=== PATIENT | female | born 1970 | race Caucasian/White ===

== ENCOUNTER 2023-09-23 06:56 | Outpatient (OUT) | payer BC, SELFPAY ==
[2023-09-23 07:06] LABS: Basophils Absolute Auto 0.1 10^3/uL (0.0-0.1); Basophils Percent Auto 2.6 % (0.2-2.0); Eosinophils Absolute Auto 0.5 10^3/uL (0.0-0.7); Eosinophils Percent Auto 13.6 % (0.9-7.0); Hematocrit 40.6 % (36.0-48.0); Hemoglobin 12.8 g/dL (12.0-16.0); Lymphocytes Percent Auto 29.3 % (20.5-60.0); Mean Corpuscular HGB Conc 31.5 g/dL (29.9-35.2); Mean Corpuscular Hemoglobin 29.4 pg (26.7-34.0); Mean Corpuscular Volume 93.1 fL (81.0-99.0); Mean Platelet Volume 9.1 fL (9.5-13.5); Monocytes Absolute Auto 0.4 10^3/uL (0.3-0.8); Monocytes Percent Auto 10.7 % (1.7-12.0); Neutrophils Absolute Auto 1.5 10^3/uL (1.4-6.5); Neutrophils Percent Auto 43.8 % (43.0-75.0); Platelet Count 260 10^3/uL (150-450); Red Blood Count 4.36 10^6/uL (4.20-5.40); Red Cell Distribution Width 12.1 % (11.0-15.0); White Blood Count 3.5 10^3/uL (4.0-11.0)
[2023-09-23 07:35] LABS: Estimated Average Glucose 103 mg/dL; Glycohemoglobin A1C 5.2 % (4.5-6.2)
[2023-09-23 07:45] LABS: Alanine Aminotransferase 25 U/L (14-59); Albumin Globulin Ratio 1.1; Albumin Level 3.7 g/dL (3.4-5.0); Alkaline Phosphatase 86 U/L (46-116); Anion Gap 11.5; Aspartate Amino Transferase 21 U/L (15-37); BUN Creatinine Ratio 23.4; Bilirubin Total 0.4 mg/dL (0.2-1.0); Calcium 8.9 mg/dL (8.5-10.1); Carbon Dioxide 31.5 mmol/L (21.0-32.0); Chloride 102 mmol/L (98-107); Chol HDL Ratio 2.6; Cholesterol 207 mg/dL (<=200); Estimated GFR (African America >60 (>=60); Estimated GFR (Non-African Ame >60 (>=60); Globulin 3.5 g/dL; Glucose 92 mg/dL (74-106); HDL Cholesterol 80 mg/dL (40-60); Sodium 141 mmol/L (136-145); Thyroid Stimulating Hormone 3.052 uIU/mL (0.358-3.740); Total Protein 7.2 g/dL (6.4-8.2); Triglycerides 80 mg/dL (<=150)
== END 2023-09-23 06:57 | disposition home or self-care (01) ==
LOC: LAB 06:56
PROVIDERS: PCP Internal Medicine; Visit Provider Internal Medicine
DX: Z00.00 Encounter for general adult medical examination without abnormal findings (principal)
CPT/HCPCS: 36415; 80053; 80061; 83036; 84443; 85025

== ENCOUNTER 2024-08-09 15:06 | Outpatient (OUT) | payer BC, SELFPAY ==
--- OUTSIDE RECORDS SUMMARY | 2024-08-03 10:12 | XMS_ITS | CCD ---
Author Organization [facility] Care Team Providers Care [employer] Manager Name Role Phone DEEP PLASCENCIA Unavailable Unavailable DEEP PLASCENCIA Unavailable Unavailable Joon Miramontes DO Primary Care Provider Almas Betts Unavailable ÉHCTOR ZEPEDA Admitting Unavailable DUANEHÉCTOR PEÑA Attending Unavailable DEEP PLASCENCIA Primary Care Unavailable DUANEHÉCTOR VILCHIS Consulting Unavailable MISC, DR TRAN Admitting Unavailable MISC, DR TRAN Attending Unavailable BALL, DR DUPREE Primary Care Unavailable ROOSEVELT RIBEIRO Consulting Unavailable ROCK KAMARA Consulting Unavailable KULWINDER, DR DUPREE Admitting Unavailable BALL, DR DUPREE Attending Unavailable BALL, DR DUPREE Consulting Unavailable KULWINDER, DR DUPREE Primary Care Unavailable Jono Miramontes DO Primary Care Provider Almas Betts Unavailable Joon Miramontes Unavailable Ariela HARDEN Referring Unavailable Ariela HARDEN Attending Unavailable JOON MIRAMONTES Primary Care Unavailable JOON MIRAMONTES Primary Care Unavailable FILE, CHERYL Richmond Referring Unavailable JOON MIRAMONTES Primary Care Unavailable FILE, CHERYL Richmond Attending Unavailable Ariela HARDEN Referring Unavailable Ariela HARDEN Attending Unavailable JOON MIRAMONTES Primary Care Unavailable Allergies Allergy Classification Reported Allergen(s) Allergy Type Date of Onset Reaction(s) Facility (7 sources) clarithromycin; Translations: [CLARITHROMYCIN] Drug Allergy 01-16-20 [facility] Repository (10 sources) Penicillins; Translations: [PENICILLINS] Propensity to adverse reactions to drug (disorder) 01-16-20 [facility] Repository (9 sources) Sulfonamides (Antibiotic); Translations: [SULFA (SULFONAMIDE ANTIBIOTICS)] Propensity to adverse reactions to drug (disorder) 09-25-20 [facility] [place] Repository (1 source) Sulfonamides (Antibiotic) Drug allergy (disorder) 01-15-20 15 [facility] Repository (1 source) Sulfamethoxazole / Trimethoprim Drug Allergy Unknown 24h00 Other (1 source) Substance with penicillin structure and antibacterial mechanism of action (substance) Drug allergy 10-10-20 14 Unknown 24h00 Other (1 source) Substance with sulfonamide structure and antibacterial mechanism of action (substance) Drug allergy 10-10-20 14 Unknown 24h00 Other (2 sources) Sulfamethoxazole Drug Allergy 12-17-19 24 Unknown Reaction [facility] (2 sources) Trimethoprim Drug Allergy 12-17-19 24 Unknown Reaction [facility] Medications Current Medications Medication Drug Class(es) Dates Sig (Normalized) Sig (Original) [id number] 200 actuat albuterol 0.09 mg/actuat metered dose inhaler (10 sources) beta2-Adrenergic Agonist Start: 03-03-2024 take 1 puff(s) by inhalation every six hours Albuterol Sulfate Active 2 PUFF INHALATION Every 6 hours 8.5 30 March 03, 2024 12:00am Start: 12-17-2023 End: 03-03-2024 take 2 puff(s) by mouth every four hours as needed for cough Albuterol Sulfate Discontinued INHALATION December 17, 2023 1:00am March 03, 2024 12:33pm FreeTextSig: INHALE 2 PUFFS BY MOUTH EVERY 4 HOURS NEEDED FOR COUGH AND SHORTNESS OF BREATH; Note: Source Status: Continue; Provider: Kulwinder Dupree ( ) Start: 07-08-2015 take 1 puff(s) by in halation every four hours as needed PROAIR HFA 90 mcg/actuation inhaler Inhale 1 Puff as instructed every 4 hours as needed. 0 07/08/2015 Active take 2 puff(s) by mo uth every four hours as needed for cough Albuterol Sulfate HFA 108 (90 Base) MCG/ACT INHALE 2 PUFFS BY MOUTH EVERY 4 HOURS NEEDED FOR COUGH AND SHORTNESS OF BREATH Active Comment on above: Inhale 1 Puff as ins tructed every 4 hours as needed. cholecalciferol 0.05 mg oral tablet (1 source) Vitamin D take 1 tablet by mouth every twenty-four hours Vitamin D 50 MCG (2000 UT) 1 tablet Orally Once a day Active fluticasone propionate 0.05 mg/actuat metered dose nasal spray (3 sources) Corticosteroid Start: 12-17-19 Fluticasone Propionate Active 1 SPRAY INTRANASAL Daily December 17, 2023 1:00am take 1 spray(s) nasal route once daily Fluticasone Propionate 50 MCG/ACT 1 spray in each nostril Nasally Once a day Active Fluticasone Propion-Salmeterol (Advair Diskus) 500-50 mcg/dose blister with device (2 sources) Start: 03-03-2024 take 1 puff(s) by mouth every twelve hours Fluticasone Propion-Salmeterol (Advair Diskus) 500-50 mcg/dose blister with device Active 1 INH INHALATION Every 12 hours 60 March 03, 2024 12:28pm FreeTextSig: INHALE 1 PUFF BY MOUTH EVERY 12 HOURS Inhalation Twice a day; Note: Source Status: Continue; Provider: Kulwinder Lambert levoFLOXacin 500 mg oral tablet (1 source) Quinolone Antimicrobial Start: 04-14-2024 take 500 mg by mouth once daily Levofloxacin Active 500 MG PO Daily 14 April 14, 2024 12:00am predniSONE 20 mg oral tablet (6 sources) Start: 12-17-2023 End: 04-14-2024 Prednisone Active 20 MG PO As Directed 12 April 14, 2024 10:40am 1 tab tid w/ food x 2 days, then bid w/ food x 2 days, then qd w/ food x 2 days Start: 10-06-2022 take 1 tablet by laura th twice daily as needed for cough Prednisone 10 MG predniSONE 10mg, 2 (two) Tablet PO bid x 5 days PRN dyspnea, cough. # 50, 10/06/2022, Ref. x5. Active Oral PO bid x 5 days PRN dyspnea, cough. for 30 Sep, Not-Taking/PRN ProAir HFA 108 (90 Base)MCG/ ACT (1 source) Start: 07-21-2022 ProAir HFA 108 (90 Base)MCG/ACT ProAir HFA( 108 (90 Base)MCG/ACT Inhalation 1 ) Active -Hx Entry Inhalation for 0 As needed for asthma *Reorder from [employer] for eRx and Interaction Alerts* Jul, Active Completed/Discontinued Medications Medication Drug Class(es) Dates Sig (Normalized) Sig (Original) ascorbic acid 250 mg chewable tablet (5 sources) Vitamin C take 500 mg by mouth once daily Ascorbic Acid (VITAMIN C) 250 mg chew Take 500 mg by mouth once daily. 0 Active Comment on above: Take 500 mg by mouth once daily. azithromycin 250 mg oral tablet (2 sources) Macrolide Antimicrobial Start: 03-03-2024 End: 04-14-2024 Azithromycin Discontinued 250 MG PO As Directed 6 5 March 03, 2024 12:00am April 14, 2024 10:43am 120 actuat budesonide 0.16 mg/actuat / formoterol fumarate 0.0048 mg/actuat / glycopyrrolate 0.009 mg/actuat metered dose inhaler (3 sources) Corticosteroid, beta2-Adrenergic Agonist Start: 08-07-2022 End: 08-26-2023 take 2 puff(s) by inhalation every twelve hours BREZTRI AEROSPHERE 160-9-4.8 mcg/actuation HFA aerosol inhaler Inhale 2 Puffs as instructed every 12 hours. 0 08/07/2022 08/26/2023 Discontinued (Course of therapy completed) Start: 08-06-2022 take 2 puff(s) by in halation every twelve hours as needed Breztri Aerosphere 160-9-4.8 MCG/ACT 2 puffs Inhalation every 12 hours for 28 days Jul, Not-Taking/PRN Comment on above: Inhale 2 Puffs as in structed every 12 hours. Calcium (2 sources) Phosphate Binder, Calcium CALCIUM ORAL Take by mouth. 0 Active Comment on above: Take by mouth. cholecalciferol, vitamin D3, (VITAMIN D3 ORAL) (3 sources) cholecalciferol, vitamin D3, (VITAMIN D3 ORAL) Take by mouth. 0 Active Comment on above: Take by mouth. doxycycline hyclate 100 mg oral capsule (2 sources) Tetracycline-class Drug Start: End: take 100 mg by mouth twice daily Doxycycline Hyclate Discontinued 100 MG PO Twice daily 14 7 December 17, 2023 1:00am April 14, 2024 10:42am exemestane 25 mg oral tablet (2 sources) Aromatase Inhibitor Start: 1 End: 2 take 1 tablet by mouth once daily exemestane (AROMASIN) 25 mg tablet TAKE 1 TABLET BY MOUTH EVERY DAY 90 tablet 3 07/16/2021 08/26/2022 Discontinued (Course of therapy completed) Comment on above: TAKE 1 TABLET BY LAURA EVERY DAY fexofenadine hydrochloride 180 mg oral tablet (6 sources) Histamine-1 Receptor Antagonist Start: 0 take 1 tablet by mouth every twenty-four hours Fexofenadine HCl 180 MG 1 tablet Orally Once a day for 0 days Jun, Not-Taking/PRN fexofenadine HCl (AYAH ALLERGY ORAL) Take by mouth. 0 Active Comment on above: Take by mouth. Fluticasone Propion-Salmeterol (5 sources) Corticosteroid, beta2-Adrenergic Agonist Start: 12-17-2023 End: 03-03-2024 take 1 puff(s) by mouth every twelve hours Fluticasone Propion-Salmeterol (Advair Diskus) 500-50 mcg/dose blister with device Discontinued INHALATION December 17, 2023 1:00am March 03, 2024 12:32pm FreeTextSig: INHALE 1 PUFF BY MOUTH EVERY 12 HOURS Inhalation Twice a day; Note: Source Status: Continue; Provider: Kulwinder Lambert Start: 03-19-2016 End: 08-26-2022 ADVAIR DISKUS 500-50 mcg/dos e dsdv 1 Puff twice daily as needed. 0 03/19/2016 08/26/2022 Discontinued (Course of therapy completed) take 1 puff(s) by mo [facility] every twelve hours Advair Diskus 500-50 MCG/ACT INHALE 1 PUFF BY MOUTH EVERY 12 HOURS Inhalation Twice a day Active Comment on above: 1 Puff twice daily a s needed. fluticasone propion/salmeterol (ADVAIR DISKUS INHALATION) (3 sources) fluticasone propion/salmeterol (ADVAIR DISKUS INHALATION) Inhale as instructed. 0 Active Comment on above: Inhale as instructed . multivitamin ORAL tablet (4 sources) Start: 02-05-2012 End: 12-10-2023 take 1 tablet by mouth once daily multivitamin ORAL tablet Take 1 tablet by mouth once daily. 0 02/05/2012 12/10/2023 Discontinued Start: 02-05-2012 take 1 tablet by laura th once daily multivitamin ORAL tablet Take 1 tablet by mouth once daily. 0 02/05/2012 Active Comment on above: Take 1 tablet by laura th once daily. Multivitamin preparation (1 source) Start: 07-21-2022 take 1 tablet by mouth once daily as needed Multivitamin - 1 tablet Orally Once a day for 0 days Jul, Not-Taking/PRN Problems Active Problems Problem Classification Problem Date Documented Da te Episodic/Chronic Asthma (11 sources) Uncomplicated mild persistent asthma; Translations: [Mild persistent asthma, uncomplicated] Chronic Cancer of breast (14 sources) Malignant tumor of breast ; Translations: [Malignant neoplasm of unspecified site of unspecified female breast] Onset: 08-18-2011 09-17-2011 Chronic Diseases of white blood cells (4 sources) Decreased blood leukocyte number; Translations: [Other decreased white blood cell count] Chronic Nonmalignant breast conditions (5 sources) Fibrocystic disease of breast; Translations: [Diffuse cystic mastopathy of unspecified breast] Onset: 07-15-2010 07-15-2010 Chronic Other aftercare (1 source) Patient encounter status; Translations: [Other halfway (current) drug therapy] 12-10-2023 Episodic Other bone disease and musculoskeletal deformities (2 sources) Osteopenia; Translations: [Other specified disorders of bone density and structure, other site] Episodic Other screening for suspected conditions (not mental disorders or infectious disease) (5 sources) Endometrium thickened; Translations: [Abnormal findings on diagnostic imaging of other specified body structures] Onset: 06-22-2018 06-22-2018 Chronic Other upper respiratory infections (20 sources) Chronic ethmoidal sinusitis; Translations: [Chronic ethmoidal sinusitis] Onset: 02-22-2006 07-13-2010 Chronic Other upper respiratory infections (4 sources) Acute sinusitis, unspecified; Translations: [Acute sinusitis, unspecified] 12-17-2023 Episodic Residual codes; unclassified (4 sources) Asymptomatic menopausal state; Translations: [ASYMPTOMATIC MENOPAUSAL STATE] Onset: 07-17-2022 Episodic Residual codes; unclassified (1 source) Estrogen receptor positive status [ER+]; Translations: [ESTROGEN RECEPTOR POSITIVE STATUS] Onset: 07-27-2022 Episodic Unclassified (3 sources) CONTACT W/AND (SUSP) EXPOS COVID-19; Translations: [CONTACT W/AND (SUSP) EXPOS COVID-19] Onset: 02-27-2022 Past or Other Problems Problem Classification Problem Date Documented Da te Episodic/Chronic Cancer of breast (10 sources) History of malignant neoplasm of breast; Translations: [Personal history of malignant neoplasm of breast] Onset: 07-18-2014 Episodic Lymphadenitis (5 sources) Lymphadenopathy; Translations: [Enlarged lymph nodes, unspecified] Onset: 07-15-2010 07-15-2010 Episodic Nonmalignant breast conditions (5 sources) Pain of breast; Translations: [Mastodynia] Onset: 07-15-2010 07-15-2010 Episodic Other aftercare (6 sources) Radiotherapy follow-up; Translations: [Encounter for follow-up examination after completed treatment for conditions other than malignant neoplasm] Onset: 07-31-2015 07-31-2015 Episodic Other aftercare (1 source) Other long term care phlebotomist (current) drug therapy; Translations: [Encounter for long-term (current) use of medications] Onset: 12-10-2023 Episodic Other bone disease and musculoskeletal deformities (3 sources) Other specified disorders of bone density and structure, multiple sites; Translations: [OTH D/O BONE DENSITY STRUCT MX SITE] Onset: 07-27-2022 Episodic Other non-traumatic joint disorders (5 sources) Pain in right hip joint; Translations: [Pain in right hip] Onset: 10-25-2012 10-25-2012 Episodic Pathological fracture (10 sources) Stress fracture of sacrum; Translations: [Pathological fracture, other site, initial encounter for fracture] Onset: 11-22-2012 11-22-2012 Episodic Unclassified (7 sources) Abnormal findings on diagnostic imaging of other specified body structures; Translations: [Musculoskeletal finding] Onset: 10-25-2012 10-25-2012 Episodic Unclassified (1 source) CONTACT W/AND (SUSP) EXPOS COVID-19; Translations: [CONTACT W/AND (SUSP) EXPOS COVID-19] Onset: 02-25-2022 Results Test Name Value Interpretation Reference Range [facility] CNPN Telephone (RHEUMN) ROMEO CHRISTIANSEN ([id number]) 1970 F Date Time Provider Department 12/13/23 CHERYL GARCIA During your visit today, we recorded the following information about you: Cheryl Garcia MD 12/13/2023 9:24 AM Signed I called romeo to discuss results. no answer. LMTCB Cheryl Garcia MD 12/15/2023 11:18 AM Signed I discussed lab results with romeo. they are normal. CTX is 393, which is lower half of normal range. She was previously on aromasin, which could have contributed to some decrease in bone density and she has been off this since 2021. At this point will monitor her and she will repeat her bone density shortly after 07/17/24 and she will see me back as a virtual visit after this. will give further treatment recommendations at that time. Allergies As of Date: 12/13/2023 Noted Allergy Reaction BIAXIN (CLARITHROMYCIN) 01/15/2006 2 - Rash PENICILLINS 01/15/2006 2 - Rash SULFA (SULFONAMIDE ANTIBIOTICS) 09/25/2013 2 - Rash Date Reviewed: 12/10/2023 Reviewed by: Cheryl Garcia MD - Fully Assessed Reason for Visit: Results [95] Prescriptions as of 12/15/2023 - CALCIUM ORAL Take by mouth. - fluticasone propion/salmeterol (ADVAIR DISKUS INHALATION) Inhale as instructed. - cholecalciferol, vitamin D3, (VITAMIN D3 ORAL) Take by mouth. - fexofenadine HCl (AYAH ALLERGY ORAL) Take by mouth. - Ascorbic Acid (VITAMIN C) 250 mg chew Take 500 mg by mouth once daily. - PROAIR HFA 90 mcg/actuation inhaler Inhale 1 Puff as instructed every 4 hours as needed. Problem List As Of Date 12/13/2023 Noted Resolved CHR ETHMOIDAL SINUSITIS [J32.2] 02/22/2006 CHR MAXILLARY SINUSITIS [J32.0] 02/22/2006 CHR FRONTAL SINUSITIS [J32.1] 02/22/2006 CHR SPHENOIDAL SINUSITIS [J32.3] 02/22/2006 Mastodynia [N64.4] 07/15/2010 Fibrocystic Breast [N60.19] 07/15/2010 Enlarged Lymph Node [R59.9] 07/15/2010 Breast cancer [C50.919] 09/17/2011 Malignant neoplasm of breast (female), unspecif*09/17/2011 Unspecified asthma, with status asthmaticus [J4* 07/22/2016 Pain, joint, hip, right [M25.551] 10/25/2012 Nonspecific (abnormal) findings on radiological*10/25/2012 Sacral insufficiency fracture [M84.48XA] 11/22/2012 Osteoporosis with fracture [M80.80XA] 11/22/2012 Personal history of malignant neoplasm of breas*07/18/2014 Radiotherapy follow-up examination [Z09] 07/31/2015 Thickened endometrium [R93.89] 06/22/2018 Encounter Status:Closed by FILE, CHERYL Basilio on 12/15/23 Normal [facility] 25(OH)D3 SerPl-ncon 2023 25-hydroxyvitamin D3 [Mass/Vol] 49.4 ng/mL Normal 31.0-80.0 [facility] Comment on above: Order Comment: Speci men Type: BLOOD SPECIMEN Ordering Facility: [facility] Address: [address] [place] [address] Result Comment: Clas sification of 25 OH Vitamin D status: Deficiency/Insufficiency: < or = 30 ng/ml. Sufficiency/Optimal Levels: 31-80 ng/mL Toxicity: > 100 ng/mL. Test performed by chemiluminescent immunoassay. Performed By: #### 1 989-3 #### [facility] CLIA [id number] [address] [place] [address] [place] [address] [place] CNOVon 12-10-2023 CNOV Office Visit (BONEMN ) ANDREIAROMEO Gregg ([id number]) 1970 F Date Time Provider Department 12/10/23 8:00 AM CHERYL GARCIA BONEZANDRA During your visit today, we recorded the following information about you: Temperature Pulse Blood pressure Weight 97.5 degrees 79/minute 119/68 66.5 kg Height 1.727 m Cheryl Garcia MD 12/13/2023 9:19 AM Addendum The patient is seen in consultation at the request of self for an opinion and advise regarding the management of the patient?s osteoporosis. OSTEOPOROSIS AND METABOLIC BONE DISEASE HISTORY and PHYSICAL Gender: female Ethnicity: White Age: [age] year old Chief Complaint: Evaluation for osteopenia TREATMENTS: Osteoporosis - Antiresorptive Treatments Treatment Start Date Stop Date Stop Reason Comment none Osteoporosis - Anabolic Treatments Treatment Start Date Stop Date Stop Reason Comment none Current Calcium, Multivitamin, and Vitamin D Use on File Minerals and Electrolytes - Calcium Replacement Start End CALCIUM ORAL -- Sig - Route: Take by mouth. - ORAL Class: Historical Med Vitamins - D Derivatives Start End cholecalciferol, vitamin D3, (VITAMIN D3 ORAL) -- Sig - Route: Take by mouth. - ORAL Class: Historical Med OSTEOPOROSIS RISK FACTORS Osteoporosis FRAX Risk Factors Fracture(s) Wrist Fracture (Comment: around 2018- fell backwards in exercise class and broke both wrists at same time- was a hard fall, she broke the fall, landing on her outstreched hands) Family History of osteoporosis (Comment: grandmother) No parent with a hip fracture Not a current smoker Glucocorticoid use (Comment: about 2 short steroid tapers per year for asthma/allergies) Previous use No rheumatoid arthritis No secondary osteoporosis No alcohol use more than 3 units per day Osteoporosis Medication Risk Factors No use of Anti-convulsants Aromatase inhibitors No use of Furosemide No use of Proton pump inhibitor No use of Thyroid hormone with oversuppression Osteoporosis Disease-Specific Risk Factors Weight is not less than 127 lbs Height loss 1/2 inch since age 38 normal balance No fall history No history of renal calculi No CKD Caffeine intake: 1-3 c/day Exercise routine: (Comment: walks) REVIEW OF SYSTEMS: General: No fever or chills. HEENT: The patient reports that dentition is fine. No invasive dental work in the last three months and none planned for the future. No eye pain or redness. Lungs: No shortness of breath or cough CV: No chest pain or palpitations. No history of blood clot. Endocrine: no history of diabetes or thyroid disease : no history of kidney disease or kidney stone GI: no GERD. No nausea, vomiting, diarrhea or constipation or abdominal pain. Neurological: No numbness or tingling. No history of seizure. MSK: no joint pain. No back pain Skin: No rash HEME/ONC: has h/o breast cancer, received radiation Osteoporosis History Patient has a history of fracture(s) Wrist Fracture (Comment: around 2018- fell backwards in exercise class and broke both wrists at same time- was a hard fall, she broke the fall, landing on her outstreched hands) FRAX 10-year fracture risk: hip: 1% FRAX 10-year fracture risk: major osteoporotic: 11% Daily Calcium diet: 371 mg Daily Calcium supplementation: 1000 mg Daily Vitamin D: 1000 IU Current Multivitamin: No OB History 6 Para 5 Term AB Living 5 SAB IAB Ectopic Multiple Live Births Obstetric Comments Age of menarche 13 Afb 25 Lmp 08/29/2011 PAST MEDICAL HISTORY Diagnosis Date Breast cancer (HCC) 08/2011 left breast Unspecified asthma, with status asthmaticus Vaginal bleeding has h/o node positive ER/DE positive HER-2/clari positive breast cancer diagnosed 2010 post neoadjuvant trastuzumab plus carboplatin and paclitaxel and 1 year of adjuvant trastuzumab and radiation. she completed 5 years of Tamoxifen and 5 years of Aromasin in 2021. osteopenia PAST SURGICAL HISTORY Procedure Laterality Date BREAST BIOPSY 09/03/2011 left breast DILATION AND CURETTAGE DXAND/THER NONOBSTETRIC 11/2017 Dilation AND curettage DILATION AND CURETTAGE DXAND/THER NONOBSTETRIC 2016 Dilation AND curettage DILATION AND CURETTAGE DXAND/THER NONOBSTETRIC 2015 Dilation AND curettage MASTECTOMY, SIMPLE, COMPLETE 02/12/2012 left breast with SLND MASTECTOMY, SIMPLE, COMPLETE 02/12/2012 prophylactic right breast SEPTOPLASTY/SUBMUCOUS RESECJ W/WO CARTILAGE GRF Family History: FAMILY HISTORY Problem Relation Age of Onset COPD Maternal Grandfather Cancer Paternal Grandmother Asthma Other Allergies: Biaxin [Clarithromycin], Penicillins, and Sulfa (Sulfonamide Antibiotics) Medications: Present: Current Outpatient Medications Medication Sig CALCIUM ORAL Take by mouth. fluticasone propion/salmeterol (ADVAIR DISKUS (more content not included)... Normal [facility] CREATININE BLDon 12-10-2023 Creatinine [Mass/Vol] 0.80 mg/dL Normal 0.58-0.96 [facility] Comment on above: Order Comment: Manuel villa Type: BLOOD SPECIMEN Ordering Facility: [facility] Address: [address] [place] [address] Performed By: #### 2 731-8, CREOseas, 41951-7 #### [facility] CLIA [id number] [address] [place] [address] [place] Creatinine and Glomerular filtration rate.predicted panel (S/P/Bld) 87 mL/min/1.73m??? Normal >=60 [facility] Comment on above: Order Comment: Manuel villa Type: BLOOD SPECIMEN Ordering Facility: [facility] Address: [address] [place] [address] Result Comment: Lali mated Glomerular Filtration Rate (eGFR) is calculated using the 2020 CKD-EPI creatinine equation. This equation utilizes serum creatinine, sex, and age as parameters. The creatinine assay has traceable calibration to isotope dilution-mass spectrometry. Refer to KDIGO guidelines for clinical interpretation. In patients with unstable renal function, e.g. those with acute kidney injury, the eGFR may not accurately reflect actual GFR. Performed By: #### 2 731-8, CRET1, 41430-2 #### [facility] CLIA [id number] [address] [place] [address] [place] Calcium SerPl-mCncon 024 Calcium [Mass/Vol] 10.1 mg/dL Normal 8.5-10.2 [facility] Comment on above: Order Comment: Manuel villa Type: BLOOD SPECIMEN Ordering Facility: [facility] Address: [address] [place] [address] Performed By: #### 2 731-8, CRET1, 05403-4 #### [facility] [place] [id number] [address] [place] [address] [place] Collagen crosslinked C-telop eptide [Mass/Vol]on 12-10-2023 C TELOPEPTIDE, BETA CROSS LINKED 393 pg/mL Normal 183-1060 [facility] Comment on above: Order Comment: Speci men Type: BLOOD SPECIMENOrdering Facility: [facility] Address: [address] [place] [address] Performed By: #### 4 1171-0 ####[facility] [id number] [place] [address] [place] PTH-Intact SerPl-ncon 02- Parathyrin.intact [Mass/Vol] 30 pg/mL Normal 15-65 [facility] Comment on above: Order Comment: Speci men Type: BLOOD SPECIMEN Ordering Facility: [facility] Address: [address] [place] [address] Performed By: #### 2 731-8, CRET1, 71135-9 #### [facility] [place] [id number] [address] [place] [address] [place] Walter 10-22-2023 CNPN Telephone (RHEUMN) ROMEO CHRISTIANSEN ([id number]) 1970 F Date Time Provider Department 10/22/23 FILE, CHERYL KRUSE During your visit today, we recorded the following information about you: Jaelyn Hidalgo 10/22/2023 4:28 PM Signed Received outside medical records from [facility]. Scanned into chart for review. Allergies As of Date: 10/22/2023 Noted Allergy Reaction BIAXIN (CLARITHROMYCIN) 01/15/2006 2 - Rash PENICILLINS 01/15/2006 2 - Rash SULFA (SULFONAMIDE ANTIBIOTICS) 09/25/2013 2 - Rash Date Reviewed: 07/21/2023 Reviewed by: Roosevelt Ribeiro MD - Fully Assessed Reason for Visit: Received Outside Medical Records [[id number]] Prescriptions as of 10/22/2023 - fluticasone propion/salmeterol (ADVAIR DISKUS INHALATION) Inhale as instructed. - cholecalciferol, vitamin D3, (VITAMIN D3 ORAL) Take by mouth. - fexofenadine HCl (AYAH ALLERGY ORAL) Take by mouth. - Ascorbic Acid (VITAMIN C) 250 mg chew Take 500 mg by mouth once daily. - PROAIR HFA 90 mcg/actuation inhaler Inhale 1 Puff as instructed every 4 hours as needed. - multivitamin ORAL tablet Take 1 tablet by mouth once daily. Problem List As Of Date 10/22/2023 Noted Resolved CHR ETHMOIDAL SINUSITIS [J32.2] 02/22/2006 CHR MAXILLARY SINUSITIS [J32.0] 02/22/2006 CHR FRONTAL SINUSITIS [J32.1] 02/22/2006 CHR SPHENOIDAL SINUSITIS [J32.3] 02/22/2006 Mastodynia [N64.4] 07/15/2010 Fibrocystic Breast [N60.19] 07/15/2010 Enlarged Lymph Node [R59.9] 07/15/2010 Breast cancer [C50.919] 09/17/2011 Malignant neoplasm of breast (female), unspecif*09/17/2011 Unspecified asthma, with status asthmaticus [J4* 07/22/2016 Pain, joint, hip, right [M25.551] 10/25/2012 Nonspecific (abnormal) findings on radiological*10/25/2012 Sacral insufficiency fracture [M84.48XA] 11/22/2012 Osteoporosis with fracture [M80.80XA] 11/22/2012 Personal history of malignant neoplasm of breas*07/18/2014 Radiotherapy follow-up examination [Z09] 07/31/2015 Thickened endometrium [R93.89] 06/22/2018 Encounter Status:Closed by SHAILESH, CHERYL melgar 10/22/23 Normal [facility] CNOVon 08-26-2023 CNOV Office Visit (RADTSA ) ROMEO CHRISTIANSEN ([id number]) 1970 F Date Time Provider Department 08/26/23 11:30 AM Ariela HARDEN During your visit today, we recorded the following information about you: Temperature Pulse Respiration Blood pressure 96.7 degrees 75/minute 18/minute 120/73 Weight 67 kg Ariela Harden MD 08/26/2023 12:47 PM Signed Radiation Oncology - Follow Up Note PATIENT NAME: Romeo Christiansen PATIENT DIAGNOSIS: Breast cancer, left, T3N1 invasive ductal carcinoma , ER/DE and HER2/clari positive. s/p neoadjuvant chemotherapy followed by mastectomy followed by adjuvant chest wall and regional lymph node radiation. RADIATION SUMMARY: 50 Gy to the left chest wall and regional nodel areas and a total 65 Gy to the ranjeet-mastectomy incision area completed radiation May 06, 2012 INTERVAL HISTORY: Patient states she has been doing well. Denies new problems. Denies chest pain, skin changes or rash. Denies upper extremity paresthesias or swelling. ALLERGIES: ALLERGIES Allergen Reactions Biaxin [Clarithromy* Rash Penicillins Rash Sulfa (Sulfonamide * Rash MEDICATIONS: fluticasone propion/salmeterol (ADVAIR DISKUS INHALATION) Inhale as instructed. cholecalciferol, vitamin D3, (VITAMIN D3 ORAL) Take by mouth. fexofenadine HCl (AYAH ALLERGY ORAL) Take by mouth. Ascorbic Acid (VITAMIN C) 250 mg chew Take 500 mg by mouth once daily. PROAIR HFA 90 mcg/actuation inhaler Inhale 1 Puff as instructed every 4 hours as needed. multivitamin ORAL tablet Take 1 tablet by mouth once daily. PHYSICAL EXAM: 08/26/23 1127 BP: 120/73 Pulse: 75 Resp: 18 Temp: (!) 35.9 ?C (96.7 ?F) SpO2: 99% Weight: 67 kg (147 lb 9.6 oz) KPS: 100 General Appearance: Well appearing, alert, in no acute distress, well-hydrated, well nourished.. Skin: Skin color, texture, turgor normal, no suspicious rashes or lesions. Neck: Negative findings: no asymmetry, masses, or scars, no adenopathy. Lungs: Lungs clear to auscultation. No wheezing, rhonchi, rales.. Abdomen: Normal abdominal exam, Negative findings: no masses palpable, no organomegaly, soft, non-tender, and spleen non-palpable. Breast: bilateral breasts are surgically absent, evidence of post radiation changes left chest wall, area of telangiectasia stable. No open areas. No areas of induration or swelling or nodularity. ASSESSMENT/PLAN: T3N1 invasive ductal carcinoma of the left breast, ER/DE and HER2/clari positive. s/p neoadjuvant chemotherapy followed by mastectomy followed by adjuvant chest wall and regional lymph node radiation. Clinically doing well. No evidence recurrence. Stable posttreatment related skin issues are not problematic for her. Recommend follow-up in 1 year. Signed by: Ariela Harden MD Referring Provider: Ariela HARDEN [[id number]] Allergies As of Date: 08/26/2023 Noted Allergy Reaction BIAXIN (CLARITHROMYCIN) 01/15/2006 2 - Rash PENICILLINS 01/15/2006 2 - Rash SULFA (SULFONAMIDE ANTIBIOTICS) 09/25/2013 2 - Rash Date Reviewed: 07/21/2023 Reviewed by: Roosevelt Ribeiro MD - Fully Assessed Reason for Visit: Breast Cancer [519] Primary Visit Diagnosis:History of breast cancer [Z85.3] Prescriptions as of 08/26/2023 - fluticasone propion/salmeterol (ADVAIR DISKUS INHALATION) Inhale as instructed. - cholecalciferol, vitamin D3, (VITAMIN D3 ORAL) Take by mouth. - fexofenadine HCl (AYAH ALLERGY ORAL) Take by mouth. - Ascorbic Acid (VITAMIN C) 250 mg chew Take 500 mg by mouth once daily. - PROAIR HFA 90 mcg/actuation inhaler Inhale 1 Puff as instructed every 4 hours as needed. - multivitamin ORAL tablet Take 1 tablet by mouth once daily. Problem List As Of Date 08/26/2023 Noted Resolved CHR ETHMOIDAL SINUSITIS [J32.2] 02/22/2006 CHR MAXILLARY SINUSITIS [J32.0] 02/22/2006 CHR FRONTAL SINUSITIS [J32.1] 02/22/2006 CHR SPHENOIDAL SINUSITIS [J32.3] 02/22/2006 Mastodynia [N64.4] 07/15/2010 Fibrocystic Breast [N60.19] 07/15/2010 Enlarged Lymph Node [R59.9] 07/15/2010 Breast cancer [C50.919] 09/17/2011 Malignant neoplasm of breast (female), unspecif*09/17/2011 Unspecified asthma, with status asthmaticus [J4* 07/22/2016 Pain, joint, hip, right [M25.551] 10/25/2012 Nonspecific (abnormal) findings on radiological*10/25/2012 Sacral insufficiency fracture [M84.48XA] 11/22/2012 Osteoporosis with fracture [M80.80XA] 11/22/2012 Personal history of malignant neoplasm of breas*07/18/2014 Radiotherapy follow-up examination [Z09] 07/31/2015 Thickened endometrium [R93.89] 06/22/2018 Medications Discontinued During This Encounter Prescriptions - BREZTRI AEROSPHERE 160-9-4.8 mcg/actuation HFA aerosol inhaler (Discontinued) Inhale 2 Puffs as instructed every 12 hours. Disposition: Return in about 1 year (around 08/26/2024). Follow-up and Disposition History for Encounter Da (more content not included)... Normal [facility] XR DEXA BONE DENSITYon 07-17 XR DEXA BONE DENSITY DEXA Bone Density Study CLINICAL: Evaluate bone mineral density. Postmenopausal COMPARISON: None FINDINGS: The bone density study was assessed by dual-energy x-ray absorptiometry with the VPEP scanner. The test results are expressed in T-Score, which is used for diagnosis for osteoporosis, and reflects the standard deviations from the mean peak bone mineral density in young adults. Additional information regarding the Z-Score reflects the standard deviations from the mean peak bone mineral density for age- and gender- matched subject. Lumbar Spine (L1-L4): BMD (gm/cm2): 0.916 T-Score: -2.2 Left Hip: BMD (gm/cm2): O.788 T-Score: -1.7 Left Femoral Neck: BMD (gm/cm2): 0.835 T-Score: -1.5 Right Hip: BMD (gm/cm2): 0.788 T-Score: -1.7 Right Femoral Neck: BMD (gm/cm2): 0.835 T-Score: -1.5 IMPRESSION: 1. Lumbar spine indicates osteopenia. 2. Both hips indicate osteopenia. REFERENCE: In children, postmenopausal women and males under age 50 not at increased risk for fractures, only Z-Scores, not T-Scores, are used to indicate fracture risk. A Z-Score above -2.0 is defined as within the expected range for age and Z-Score at or less than -2.0 is below the expected range for age. A Z-Score below the expected range for age in a patient with recent fractures and/or chronic corticosteroid treatment is consistent with a diagnosis of osteoporosis. In postmenopausal women and males over 50, comparison of the measured bone mineral density with the average value in young normal subjects (the T-Score) has been found to be useful in assessing fracture risk. Fracture risk approximately doubles for each 1.0 standard deviation (SD) that the individual's hip or spine bone mineral density is below the average value of young normal subjects. The World health Organization (WHO) has provided the following definitions: 1. Normal: T-Score within one standard deviation of young adult mean value (T-Score greater than -1.0). 2. Osteopenia (low bone mass): T-Score more than one standard deviation below the young adult mean but less than 2.5 standard deviations below the young adult mean (T-Score between -1.0 and -2.5). 3. Osteoporosis: T-Score more than 2.5 standard deviations below the young adult mean (T-Score less than -2.5). 4. Sever Osteoporosis (established osteoporosis): T-Score more than 2.5 standard deviations below young adult and one or more fragility fracture (T-Score less than -2.5 + fragility fractures). Electronically authenticated by: ROCK KAMARA Date: 2022-07-17 09:51 Normal [facility] CBC AUTO DIFFon 07-15-2022 BASO # 0.1 103/ul Normal 0.0-0.[address] [facility] Comment on above: Performed By: #### C BC #### [facility] [address] [place] [address] Dr. Kira Mantilla Basophils/100 WBC (Bld) 1.7 % Normal 0.2-2.[address] [facility] Comment on above: Performed By: #### C BC #### [facility] [address] [place] [address] Dr. Kira Mantilla EO # 1.0 103/ul Critically high 0.0-0.[address] [facility] Comment on above: Performed By: #### C BC #### [facility] [address] [place] [address] Dr. Kira Mantilla Eosinophils/100 WBC (Bld) 18.2 % Critically high 0.9-7.[address] [facility] Comment on above: Performed By: #### C BC #### [facility] [address] [place] [address] Dr. Kira Mantilla Erythrocyte distribution width (RBC) [Ratio] 12.3 % Normal 11.0-15.[address] [facility] Comment on above: Performed By: #### C BC #### [facility] [address] [place] [address] Dr. Kira Mantilla Hematocrit (Bld) [Volume fraction] 44.1 % Normal 36.0-48.[address] [facility] Comment on above: Performed By: #### C BC #### [facility] [address] [place] [address] Dr. Kira Mantilla Hemoglobin (Bld) [Mass/Vol] 14.1 g/dL Normal 12.0-16.[address] [facility] Comment on above: Performed By: #### C BC #### [facility] [address] [place] [address] Dr. Kira Mantilla IG # 0.01 10e3/ul Normal 0.00-0.[address] [facility] Comment on above: Performed By: #### C BC #### [facility] [address] [place] [address] Dr. Kira Mantilla IG % 0.2 % Normal 0.0-0.[address] [facility] Comment on above: Performed By: #### C BC #### [facility] [address] [place] [address] Dr. Kira Mantilla LYMPH # 1.1 103/ul Critically low 1.2-3.[address] [facility] Comment on above: Performed By: #### C BC #### [facility] [address] [place] [address] Dr. Kira Mantilla Lymphocytes/100 WBC (Bld) 20.6 % Normal 20.5-60.[address] [facility] Comment on above: Performed By: #### C BC #### [facility] [address] [place] [address] Dr. Kira Mantilla MANUAL DIFF REQ NO Normal [facility] Comment on above: Performed By: #### C BC #### [facility] [address] [place] [address] Dr. Kira Mantilla MCH (RBC) [Entitic mass] 29.1 pg Normal 26.7-34.[address] [facility] Comment on above: Performed By: #### C BC #### [facility] [address] [place] [address] Dr. Kira Mantilla MCHC (RBC) [Mass/Vol] 32.0 g/dL Normal 29.9-35.[address] [facility] Comment on above: Performed By: #### C BC #### [facility] [address] [place] [address] Dr. Kira Mantilla MCV (RBC) [Entitic vol] 91.1 fL Normal 81.0-99.[address] [facility] Comment on above: Performed By: #### C BC #### [facility] [address] [place] [address] Dr. Kira Mantilla MONO # 0.6 103/ul Normal 0.3-0.[address] [facility] Comment on above: Performed By: #### C BC #### [facility] [address] [place] [address] Dr. Kira Mantilla Monocytes/100 WBC (Bld) 10.5 % Normal 1.7-12.[address] [facility] Comment on above: Performed By: #### C BC #### [facility] [address] [address] [address] Kira Mantilla NEUT # 2.7 103/ul Normal 1.4-6.[address] [facility] Comment on above: Performed By: #### C BC #### [facility] [address] [address] [address] Kira Mantilla Neutrophils/100 WBC (Bld) 48.8 % Normal 43.0-75.[address] [facility] Comment on above: Performed By: #### C BC #### [facility] [address] [address] [address] Kira Mantilla Platelet mean volume (Bld) [Entitic vol] 9.3 fL Critically low 9.5-13.[address] [facility] Comment on above: Performed By: #### C BC #### [facility] [address] [place] [address] Dr. Kira Mantilla PLT 262 103/ul Normal 150-450 [facility] Comment on above: Performed By: #### C BC #### [facility] [address] [place] [address] Dr. Kira Mantilla RBC 4.84 106/ul Normal 4.20-5.[address] [facility] Comment on above: Performed By: #### C BC #### [facility] [address] [place] [address] Dr. Kira Mantilla WBC 5.4 103/ul Normal 4.0-11.[address] [facility] Comment on above: Performed By: #### C BC #### [facility] [address] [place] [address] Dr. Kira Mantilla GLYCOHEMOGLOBIN A1Con 2021 ADA RECOMMENDATION SEE BELOW Normal [facility] Comment on above: Result Comment: ADA RECOMMENDED LIMIT 4.0 - 6.0 ADA THERAPEUTIC TARGET < 7.0 ACTION SUGGESTED > 7.0 Performed By: #### A 1C #### [facility] [address] [place] [address] Dr. Kira Mantilla Glucose [Mass/Vol] 105 mg/dL Normal [facility] Comment on above: Performed By: #### A 1C #### [facility] [address] [address] [address] Kira Mantilla HbA1c (Bld) [Mass fraction] 5.3 % Normal 4.5-6.[address] [facility] Comment on above: Performed By: #### A 1C #### [facility] [address] [place] [address] Dr. Kira Mantilla LIPID PROFILEon 07-15-2022 CHOL-HDL RATIO NORM SEE BELOW Normal [facility] Comment on above: Result Comment: 3.3 - 4.4 LOW RISK 4.4 - 7.1 AVERAGE RISK 7.1 - 11.0 MODERATE RISK >11.0 HIGH RISK Performed By: #### T SH, CMP, LIPID #### [facility] [address] [place] [address] Dr. Kira Mantilla Cholesterol [Mass/Vol] 230 mg/dL Critically high <=200 [facility] Comment on above: Performed By: #### T SH, CMP, LIPID #### [facility] [address] [place] [address] Dr. Kira Mantilla Cholesterol in HDL [Mass/Vol] 90 mg/dL Critically high 40-[address] [facility] Comment on above: Performed By: #### T SH, CMP, LIPID #### [facility] [address] [place] [address] Dr. Kira Mantilla Cholesterol in LDL [Mass/Vol] 123.8 mg/dL Normal [facility] Comment on above: Performed By: #### T SH, CMP, LIPID #### [facility] [address] [place] [address] Dr. Kira Mantilla Cholesterol.total /Cholesterol in HDL [Mass ratio] 2.6 {ratio} Normal [facility] Comment on above: Performed By: #### T SH, CMP, LIPID #### [facility] [address] [place] [address] Dr. Kira Mantilla HDL NORMAL > or = 60 mg/dl - LO W CARDIOVASCULAR RISK <40 mg/dl - HIGH CARDIOVASCULAR RISK Normal [facility] Comment on above: Performed By: #### T SH, CMP, LIPID #### [facility] [address] [address] [address] Kira Mantilla LDL CALC NORMAL SEE BELOW Normal [facility] Comment on above: Result Comment: <100 mg/dl OPTIMAL 100 - 129 mg/dl NEAR OR ABOVE OPTIMAL 130 - 159 mg/dl BORDERLINE HIGH 160 - 189 mg/dl HIGH >190 mg/dl VERY HIGH Performed By: #### T SH, CMP, LIPID #### [facility] [address] [address] [address] Kira Mantilla Triglyceride [Mass/Vol] 81 mg/dL Normal <=[address] [facility] Comment on above: Performed By: #### T MATTHEW, CMP, LIPID #### [facility] [address] [place] [address] Dr. Kira Mantilla VLDL CALC 16.2 mg/dL Normal [facility] Comment on above: Performed By: #### T MATTHEW CMP, LIPID #### [facility] [address] [place] [address] Dr. Kira Mantilla PROF 14(COMP METB)on 022 Albumin [Mass/Vol] 4.1 g/dL Normal 3.4-5.[address] [facility] Comment on above: Performed By: #### T MATTHEW CMP, LIPID #### [facility] [address] [place] [address] Dr. Kira Mantilla Albumin/Globulin [Mass ratio] 1.1 {ratio} Normal [facility] Comment on above: Performed By: #### T MATTHEW CMP, LIPID #### [facility] [address] [place] [address] Dr. Kira Mantilla ALP [Catalytic activity/Vol] 86 U/L Normal 46-116 [facility] Comment on above: Performed By: #### T MATTHEW, CMP, LIPID #### [facility] [address] [place] [address] Dr. Kira Mantilla ALT [Catalytic activity/Vol] 28 U/L Normal 14-59 [facility] Comment on above: Performed By: #### T MATTHEW, CMP, LIPID #### [facility] [address] [place] [address] Dr. Kira Mantilla Anion gap [Moles/Vol] 11.5 mmol/L Normal [facility] Comment on above: Performed By: #### T SH, CMP, LIPID #### [facility] [address] [place] [address] Dr. Kira Mantilla AST [Catalytic activity/Vol] 23 U/L Normal 15-[address] [facility] Comment on above: Performed By: #### T SH, CMP, LIPID #### [facility] [address] [place] [address] Dr. Kira Mantilla Bilirubin [Mass/Vol] 0.6 mg/dL Normal 0.2-1.0 [facility] Comment on above: Performed By: #### T SH, CMP, LIPID #### [facility] [address] [place] [address] Dr. Kira Mantilla Calcium [Mass/Vol] 9.6 mg/dL Normal 8.5-10.[address] [facility] Comment on above: Performed By: #### T SH, CMP, LIPID #### [facility] [address] [place] [address] Dr. Kira Mantilla Chloride [Moles/Vol] 102 mmol/L Normal 98-107 [facility] Comment on above: Performed By: #### T SH, CMP, LIPID #### [facility] [address] [place] [address] Dr. Kira Mantilla CO2 [Moles/Vol] 29.5 mmol/L Normal 21.0-32.0 [facility] Comment on above: Performed By: #### T SH, CMP, LIPID #### [facility] [address] [place] [address] Dr. Kira Mantilla Creatinine [Mass/Vol] 0.85 mg/dL Normal 0.55-1.02 [facility] Comment on above: Performed By: #### T SH, CMP, LIPID #### [facility] [address] [place] [address] Dr. Kira Mantilla EGFR-AF GUAMANIAN >60 Normal >=60 [facility] Comment on above: Performed By: #### T SH, CMP, LIPID #### [facility] [address] [address] [address] Kira Mantilla EGFR-NON AF GUAMANIAN >60 Normal >=60 [facility] Comment on above: Performed By: #### T MATTHEW CMP, LIPID #### [facility] [address] [address] [address] Kira Mantilla Globulin (S) [Mass/Vol] 3.8 g/dL Normal [facility] Comment on above: Performed By: #### T MATTHEW CMP, LIPID #### [facility] [address] [place] [address] Dr. Kira Mantilla Glucose [Mass/Vol] 99 mg/dL Normal 74-106 [facility] Comment on above: Performed By: #### T MATTHEW CMP, LIPID #### [facility] [address] [place] [address] Dr. Kira Mantilla Potassium [Moles/Vol] 4.0 mmol/L Normal 3.5-5.1 [facility] Comment on above: Performed By: #### T MATTHEW CMP, LIPID #### [facility] [address] [place] [address] Dr. Kira Mantilla Protein [Mass/Vol] 7.9 g/dL Normal 6.4-8.2 [facility] Comment on above: Performed By: #### T MATTHEW CMP, LIPID #### [facility] [address] [place] [address] Dr. Kira Mantilla Sodium [Moles/Vol] 139 mmol/L Normal 136-145 [facility] Comment on above: Performed By: #### T MATTHEW CMP, LIPID #### [facility] [address] [place] [address] Dr. Kira Mantilla Urea nitrogen [Mass/Vol] 13.0 mg/dL Normal 7.0-18.0 [facility] Comment on above: Performed By: #### T MATTHEW CMP, LIPID #### [facility] [address] [place] [address] Dr. Kira Mantilla Urea nitrogen/Creatini ne [Mass ratio] 15.3 mg/mg Normal [facility] Comment on above: Performed By: #### T MATTHEW CMP, LIPID #### [facility] [address] [place] [address] Dr. Kira Mantilla TSHon 07-15-2022 TSH 1.754 uIU/mL Normal 0.358-3.74 0 [facility] Comment on above: Performed By: #### T SH, CMP, LIPID #### [facility] [address] [place] [address] Dr. Kira Mantilla SYMPTOMATIC COVID-19 ANTIGEN on 02-25-2022 EUA Statement SEE BELOW Normal [facility] Comment on above: Result Comment: This test has not been FDA cleared or approved, but has been authorized by the FDA under an Emergency Use Authorization (EUA) for use by authorized laboratories certified under CLIA that meet the requirements to perform moderate or high complexity testing. This test has been authorized only for the detection of proteins from SARS-CoV-2, not for any other viruses or pathogens. The emergency use of this test is authorized for the duration of the declaration that circumstances exist justifying the authorization of emergency use of in vitro diagnostic tests for detection and/or diagnosis of Covid-19 under section 564(b)(1) of the Act, 21 U.S.C. 360bbb-3(b)(1), unless the declaration is terminated or authorization is revoked sooner. Performed By: #### C VDAGS #### [facility] [address] [place] [address] Dr. Kira Mantilla SARS-CoV-2 (COVID-19) RNA NELL+probe Ql (Unsp spec) Negative Normal NEGATIVE [facility] Comment on above: Result Comment: CONF IRMATION BY PCR PENDING PER CDC GUIDELINES/ SYMPTOMATIC PATIENT. Performed By: #### C VDAGS #### [facility] [address] [place] [address] Dr. Kira [place] ANES Malena 07-28-2018 ANES POST HNO ID: [id number] thor: Mahendra Bagley VeInderervice: AnesthesiologyAuthor Type: AnesthesiologistType: Anesthesia PostOpFiled: 07/28/2018 11:23 AMNote Text:POST ANESTHESIA EVALUATION NOTESERVICE DATE: 07/28/2018SERVICE TIME: 1046DOB: 1970Vitals: 07/28/1808Temp: 36.7 ?C (98.1 ?F) 36 ?C (96.8 ?F) 36.1 ?C (97 ?F) 07/28/1808BP: 123/82 123/77 120/77 111/71 07/28/1808Pulse: 77 69 60 71 07/28/1808Resp: 14 20 15 16 07/28/1808SpO2: 100% 97% 99% 99%Validated Vital Signs: YesPOST ANES STATUS: No apparent anesthetic complications. The patient isappropriately hydrated with stable respiratory and cardiovascular status.Patient has safe and adequate airway control. The patient has appropriatepain relief and no significant post operative nausea or vomiting. Thepatient has achieved baseline mental status.Intra-Operative Events: No Significant Anesthesia EventsFurther assessment by Anesthesia Service: NoneOther Remarks:SIGNATURE: Mahendra Herbert MD PATIENT NAME: Romeo ChristiansenDATE: July 28, 2018 : 11:23 AM PAGER/CONTACT #: [phone] [facility] ANES PREOPon 07-28-2018 ANES PREOP HNO ID: [id number] thor: Mahendra Legerervice: AnesthesiologyAuthor Type: AnesthesiologistType: Anesthesia PreOpFiled: 07/28/2018 7:21 AMNote Text:REGIONAL ANESTHESIOLOGY DAY OF SURGERY NOTEPATIENT NAME: Romeo ChristiansenMRN: [id number]: 1970Procedure(s) (LRB):DILATION AND CURETTAGE (N/A)Surgeon(s):Deep CamposdiEstimated body mass index is 24.69 kg/m? as calculated from the following: Height as of 07/07/18: 171.5 cm (5' 7.5 ). Weight as of 07/07/18: 72.6 kg (160 lb).ASA Class: 2Adequate NPO status: YesAllergies:ALLERGIESAllergen Reactions- Biaxin [Clarithromy* Rash- Penicillins Rash- Sulfa (Sulfonamide * RashAirway Assessment: MP 2; Neck ROM: Full ROM without neurologic symptoms;Airway Evaluation: No significant abnormalitiesDentition: Teeth intactSymptoms of Sleep Apnea: DeniesMost recent lab results:Hemoglobin 13.5 07/07/2018Hematocrit 43.0 07/07/2018Potassium 4.2 07/07/2018Platelet Count 294 07/07/2018Creatinine 0.90 07/07/2018EKG:normal EKG, normal sinus rhythmVitals: 145639IE: 131/81Pulse: 75Resp: 20Temp: 36.7 ?C (98.1 ?F)TempSrc: Temporal ArterySpO2: 99%Previous Anesthesia: No history of adverse event Family history ofanesthetic problems: NoneAdditional Physical Exam:Lungs: Lungs clear to auscultation. Good diaphragmatic excursion.Patient health status unchanged since recent history and physical. Seehistory and physical for exam findings.Cardiac: Normal S1 and S2; no rubs, no murmurs and no gallopsPatient health status unchanged since recent history and physical. Seehistory and physical for exam findings.Additional pertinent findings: noneOther Medical Problems/ Important Considerations:Denies chest pain and SOB with exertion.Denies GERD.Chronic Beta Katherine medication administered within 24 hours: N/AAnesthetic risks, benefits, alternatives, personnel and consent discussed:YesPatient agrees to proceed: YesBlood Products: Will accept Blood/Blood ProductsAnesthetic Plan: General LMA; Standard ASA MonitorsPain Management Plan: ROOT ProtocolParenteral or OralEPIC Chart ReviewACTIVE PROBLEM LISTChronic Ethmoidal SinusitisChronic Maxillary SinusitisChronic Frontal SinusitisChronic Sphenoidal SinusitisMastodyniaFibrocystic BreastEnlarged Lymph NodeBreast Cancer (Hcc)Malignant Neoplasm of Breast (Female), Unspecified SitePain, Joint, Hip, RightNonspecific (Abnormal) Findings On Radiological and Other Examination ofMusculoskeletal SystemSacral Insufficiency FractureOsteoporosis With FracturePersonal History of Malignant Neoplasm of BreastRadiotherapy Follow-Up ExaminationThickened EndometriumPAST MEDICAL HISTORYDiagnosis Date- Breast cancer (HCC) 08/2011 left breast- Unspecified asthma, with status asthmaticus- Vaginal bleedingPAST SURGICAL HISTORYProcedure Laterality Date- BREAST BIOPSY 09/03/2011 left breast- DANDC, DIAG AND/OR THERAPEUTIC 11/2017 Dilation AND curettage- DANDC, DIAG AND/OR THERAPEUTIC 2016 Dilation AND curettage- DANDC, DIAG AND/OR THERAPEUTIC 2015 Dilation AND curettage- MASTECTOMY, SIMPLE, COMPLETE 02/12/2012 left breast with SLND- MASTECTOMY, SIMPLE, COMPLETE 02/12/2012 prophylactic right breast- REPAIR OF NASAL SEPTUMFAMILY HISTORYProblem Relation Age of Onset- COPD Maternal Grandfather- Cancer Paternal Grandmother- Asthma OtherSocial History:Social HistorySubstance Use Topics- Smoking status: Never Smoker- Smokeless tobacco: Never Used- Alcohol use Yes Comment: RarelyNo current facility-administered medications on file prior to encounter.Current Outpatient Prescriptions on File Prior to Encounter:ADVAIR DISKUS 500-50 mcg/dose dsdv 1 Puff twice daily.PROAIR HFA 90 mcg/actuation inhaler Inhale 1 Puff as instructed every 4hours as needed.multivitamin ORAL tablet Take 1 tablet by mouth once daily.Inpatient medications reviewed in [facility].I have interviewed and examined the patient. I have reviewed the medicalrecord and/or the pre-anesthesia evaluation, pertinent labs, and testresults.Significant changes in the patient's condition since the History andPhysical, not otherwise documented in primary service progress notes: NoThis contains updated information obtained within 48 hours ofSurgery/Procedure.SIGNATURE: Mahendra Herbert MD PATIENT NAME: Romeo ChristiansenDATE: July 28, 2018 : 7:20 AM PAGER/CONTACT #: [phone] [facility] BRIEF OP NOTon 07-28-2018 BRIEF OP NOT HNO ID: [id number] thor: Raymond Paintingervice: Gynecology OncologyAuthor Type: PhysicianType: Brief Op NoteFiled: 07/28/2018 8:20 AMNote Text:BRIEF OP NOTELOG ID: [id number]/Procedure Date: 07/28/2018Incision/Procedure Start Time: 8:01 AMIncision Close/Procedure End Time: 8:06 AMSurgeon(s)/Proceduralist(s) and Sales Associate Key Holder(s):Surgeon(s) and Role: * Deep Demarco * Raymond Swain - FellowProcedure(s): MOISÉS CALEROAnesthesia: GeneralFindings: scant tissue.Estimated Blood Loss: 5 mlsSpecimens: EMCsComplications: NonePre-Op/Pre-Procedure Diagnosis: thickened endometriumPost-Op/Post-Procedur e Diagnosis: Thickened endometrium [R93.8]SIGNATURE: Raymond Swain MD PATIENT NAME: Romeo ChristiansenDATE: July 28, 2018 : 8:19 AM PAGER/CONTACT #:yesika [facility] HISTORY PHYSICALon 8 HISTORY PHYSICAL HNO ID: [id number] thor: Raymond Paintingervice: Gynecology OncologyAuthor Type: PhysicianType: HANDPFiled: 07/28/2018 6:59 AMNote Text:UPDATED HISTORY AND PHYSICAL EXAMINATIONSERVICE DATE: 07/28/2018SERVICE TIME: 658PHYSICAL EXAM MUST BE COMPLETED ON ADMISSIONThe History and Physical (completed in the past 30 days) has been reviewedand the patient has been examined. The contents accurately reflect thepatient's condition with the following additions or revisions since theHANDP was completed.Examination indicates no changes.This HANDP can be found in the Electronic Medical Record dated 06/17/2019.SIGNATURE: Raymond Swain MD PATIENT NAME: Romeo HaneygelDATE: July 28, 2018 : 6:59 AM PAGER: [facility] OPERATIVE NOon 07-28-2018 OPERATIVE NO HNO ID: [id number] thor: Deep Crowleyervice: Gynecology OncologyAuthor Type: PhysicianType: Operative ReportFiled: 07/31/2018 8:30 AMNote Text:OPERATIVE/PROCEDURE REPORTLOG ID: [id number]/PROCEDURE DATE: 07/28/2018INCISION/PROCEDURE START TIME: 8:01 AMINCISION CLOSE/PROCEDURE END TIME: 8:06 AMSURGEON(S)/PROCEDURALIST(S) AND WATCH ASSEMBLER(S):Surgeon(s) and Role: * Deep Daniel Primary * Raymond Swain - FellowNo Additional StaffSURGERY/PROCEDURE(S):SURGER Y/PROCEDURE(S):Exam under anaesthesia, dilation and curettage?ANESTHESIA: General??Findings:?normal vaginal and cervical exam??Procedure narrative:The patient was taken to the operating room and was placed on theoperating room table, general anesthesia was initiated, she was thenplaced in dorsal lithotomy position, attention was made to avoid anypressure injuries, I evaluated the ankle and hip joints bilaterally afterpositioning the lower extremity, there was adequate mobility of the jointsand no evidence of pressure on the femoral or common peroneal nerves. Shewas then prepped and draped in a normal sterile fashion bladder wasdrained using a howard catheter. Exam under anesthesia was performed,findings as above. We then proceeded with the DANDC procedure, initially thecervix was grasped with tenaculum to achieve exposure, then hegar dilatorswere used to dilate the cervix, and then sharp curette was used to obtainendometrial sampling, the polyp forceps used, the specimen was submittedto pathology. Hemostasis was secured and was excellent.Patient tolerated the procedure, she was extubated and was discharged tothe recovery room. All counts were correct x 2 by the end of the case.?PRE-OP/PRE-PROCEDURE DIAGNOSIS:?Thickened endometrium?POST-OP/POST-PROCEDU RE DIAGNOSIS:?Same?ESTIMATED BLOOD LOSS:?10?mls??Specimens:?Endomet rial curette?IMPLANTABLE DEVICES: None?DRAINS:?None?COMPLICATIONS: None?PARTICIPATION IN SURGERY/PROCEDURE: I performed the procedure withassistance.?SIGNATURE: Deep Plascencia MD PATIENT NAME: Romeo ChristiansenDATE: July 31, 2018 : 8:28 AM PAGER/CONTACT #: [facility] PT EDon 07-28-2018 PT ED HNO ID: [id number] thor: Cheryl (Rn) MOISE Chingervice: NursingAuthor Type: Registered NurseType: Patient EducationFiled: 07/28/2018 9:56 AMNote Text:PATIENT EDUCATION TOPIC: PROCEDURE / SURGERY: Post-op Teaching: SymptomManagementREADINESS TO LEARNCOGNITIVE ABILITY: Alert and orientedMOTIVATION TO LEARN: InterestedFAMILY SUPPORT: High - Very involved in pt careINSTRUCTION PROVIDED TO: Patient and family memberPATIENT LEARNS BEST BY: Individual InstructionWritten Instruction - Hand-outsVerbal InstructionFACTORS AFFECTING LEARNING: NonePHYSICAL LIMITATIONS AFFECTING LEARNING: NoneLEARNING RESPONSEPATIENT/FAMILY RESPONSE: Information received as demonstrated byinterest and questionsMETHOD OF INSTRUCTION: Teachback, Individual instructionWritten instruction - handoutsVerbal instruction including teachbackFOLLOW-UP PLAN: Patient instructed to call with any further issues,Will receive a follow up phone call, and contact information given.INSTRUCTIONAL AIDS USED: NASUPPLEMENTAL MATERIAL PROVIDED TO PATIENT: Post op dischargeinstructions. [facility] PT ED HNO ID: [id number] thor: Roxy (Rn) MOISE Obandoervice: NursingAuthor Type: Registered NurseType: Patient EducationFiled: 07/28/2018 6:42 AMNote Text:PATIENT EDUCATION TOPIC: PROCEDURE / SURGERY: Pre-op Teaching: SurgicalSafety PrinciplesPATIENT NAME: Romeo ChristiansenN: [id number] LOCATION: OR POOL/FV [facility]READS[facility] TO LEARNCOGNITIVE ABILITY: Alert and orientedMOTIVATION TO LEARN: EagerFAMILY SUPPORT: None - Unavailable/disinterestedINSTRUC TION PROVIDED TO: PatientPATIENT LEARNS BEST BY: Verbal InstructionFACTORS AFFECTING LEARNING: NonePHYSICAL LIMITATIONS AFFECTING LEARNING: NoneLEARNING RESPONSEPATIENT/FAMILY RESPONSE: Verbalizes understanding of: [id number] t action to take to follow pre-operative instructionsMETHOD OF INSTRUCTION: Verbal instructionFOLLOW-UP PLAN: Complete - No need for follow-upINSTRUCTIONAL AIDS USED: NASUPPLEMENTAL MATERIAL PROVIDED TO PATIENT: NoneREFERRAL (RECOMMENDATION): NoneElectronically Signed By: Roxy Obando, CAM [facility] SURGICAL PATHOLOGYon 018 SURGICAL PATHOLOGY [facility]: [id number] Physician: DEEP PLASCENCIA MD FINAL DIAGNOSISEndometrium, curettage - Endometrial polyp with benign simple papillaryproliferation of the endometrium, superficial inactive non-polypendometrial epithelium, endocervical tissue, and squamous epithelium (seecomment). MIK/sam 07/29/2018 COMMENTThere is no definite involvement of non-polyp endometrium by the papillaryproliferation. Drs. Ramirez and Amado reviewed this case inintradepartmental consultation via telepathology with concurrence. Jhonatan Nix M.D.(Electronic Signature) SPECIMEN SUBMITTEDA: ENDOMETRIAL, CURETTINGS CLINICAL DATATHICKENED ENDOMETRIUM GROSS DESCRIPTIONReceived in formalin on Telfa gauze are multiple harmon soft feathery segmentsof tissue aggregating to 2.3 x 1.2 x 0.2 cm. Totally submitted in onecassette.Gross examination performed at [facility], [address] [place], [place] [id number] 07/28/2018 3:08:17 PMPatient ID #: [id number] of Report: 08/01/2018Date of Procedure: 07/28/2018Date of Receipt: 07/28/2018Submitted by: DEEP PLASCENCIA MDLocation: BELLE HOSDiagnostic interpretation performed at [facility], [address] [place] [address]. Normal [facility] Comment on above: Performed By: #### P ATHS ####[place] [address] NURSING PROGon 07-12-2018 Protein mass conc HNO ID: [id number] thor: Shelby Coyne (Rn) Finesse, RNService: (none)Author Type: Registered NurseType: Nursing Progress NoteFiled: 07/12/2018 11:53 AMNote Text:PACC Nurse Progress NoteHistory AND Physical:PACC Visit Date: 9/20/18Original HANDP Date: N/AED visit Date: N/AOutside HANDP Scanned Date: N/ALabs Within Last 6 Months:CBC: Date 07/07/18BMP/CMP: Date 07/07/18 acceptable labsImaging Within Last 12 Months:N/ACardiac Testing:EKG in last 12 Months: Yes: Date: 07/07/18, Comment: in epicLast Menstrual Period:LMP Date: 2010Posenopausal >1yr: Yes,S/P Hysterectomy: N/ABMI Percentile (PEDS):N/ARisk Assessment:N/AAnesthesia Review:N/ANarrative:Asthma-breas t cancerPre-op Considerations:N/AChart Check:Emory Kilpatrick RNSept2017 11:52 AM Normal [facility] HOSPon 06-22-2018 HOSP Patient:Romeo Christiansen SMRN: Height:5' 7.5 (1.715 m)Weight:160 lb (72.576 kg)Outpatient Medications as of 07/28/18:exemestane (AROMASIN) 25 mg tabletADVAIR DISKUS 500-50 mcg/dose dsdvPROAIR HFA 90 mcg/actuation inhalermultivitamin ORAL tabletAdmission/Clinic Administered Medications as of 07/28/18:lidocaine 10 mg/mL (1 %) 1-2 mg injection (XYLOCAINE)lactated ringers infusionlactated ringers infusionmeperidine (PF) 12.5 mg injection (DEMEROL)albuterol 2.5 mg /3 mL (0.083 %) 2.5 mg (PROVENTIL)morphine 2 mg injectionHYDROmorphone 0.2 mg injection (DILAUDID)ketorolac 30 mg injection (TORADOL)ondansetron 4 mg tab(s) (ZOFRAN)ondansetron (PF) 4 mg injection (ZOFRAN)prochlorperazine 10 mg injection (COMPAZINE)labetalol 5 mg injection (NORMODYNE)Problem List:Chronic ethmoidal sinusitis [J32.2]Chronic maxillary sinusitis [J32.0]Chronic frontal sinusitis [J32.1]Chronic sphenoidal sinusitis [J32.3]Mastodynia [N64.4]Fibrocystic breast [N60.19]Enlarged lymph node [R59.9]Breast cancer (HCC) [C50.919]Malignant neoplasm of breast (female), unspecified site [C50.919]Pain, joint, hip, right [M25.551]Nonspecific (abnormal) findings on radiological and other examination ofmusculoskeletal system [R93.7]Sacral insufficiency fracture [M84.48XA]Osteoporosis with fracture [M80.00XA]Personal history of malignant neoplasm of breast [Z85.3]Radiotherapy follow-up examination [Z09]Thickened endometrium [R93.89]Allergies:Biaxin [Clarithromycin]PenicillinsSulfa (Sulfonamide Antibiotics)Date Verified: 07/28/18Lab ValuesLab Value Units Date High LowPOTA* 4.2 mmol/L 07/07/2018 5.1 3.7HEMA* 43.0 % 07/07/2018 46.0 36.0Progress Notes ([facility]):TANA SOARESC 07/27/2018 11:24 AM SignedThe following approved medication requests have been transmitted electronically.Signed Prescriptions Disp Refills exemestane (AROMASIN) 25 mg tablet 90 tablet 3 Sig: TAKE 1 TABLET BY MOUTH EVERY DAY SANDY: No Authorizing Provider: TERRI OGLESBY PA-CProgress Notes ([facility] [employer] IN [employer]):Karen Leblanc RN, RN 07/13/2018 11:47 AM SignedPre-op teachingProcedure: DANINPhysician: [facility] HospitaldiLocation: [facility]: [phone] AND Time: 07/21/18MEDICAL CLEARANCE: No CARDIAC CLEARANCE: NoPRE ADMISSION TESTIN07/07/18THE FOLLOWING WAS EVALUATED Motivation To Learn: Eager Family/Significant Other Support: High - Very involved in pt care Cognitive Ability: Alert and orientedPatient Learns Best By: Individual InstructionWritten Instruction - Hand-outsVerbal InstructionThe Following Influencing Factors Were Barriers To This Education Session: NoneThe Following Physical Limitations Were Barriers To This Education Session:NoneInstruction Provided To: PatientMEDICATION INFORMATIONASPIRIN and ADVIL can make you more prone to bleeding after surgery. PleaseSTOP taking these medications at least (5) days before and for (3) days aftersurgery or procedure. Some common medications that contain ASPIRIN or act likeAspirin areTO BE AVOIDED:This is a list of the medications you should avoid: Advill Celebrex MotrinAggrenox Clinoril Naprosyn(naproxen)Agrylin NSAIDS Pepto-BismolAleve Ecotrin PersantineAlka-[place] Excedrin PlaquenilAnacin Heparin PlavixAscriptin Herbals PletalAspergum Ibuprofen TiclidBayer Indocin TrentalBextra Midol VanquishBufferin Gingko Biloba Vitamin E (MVI)MEDICATIONS YOU MAY SUBSTITUTEAnacin 3 Fioricet * Tylenol with codeine *Darvocet N 100 * Plenadol Percocet *Datril Sine-Aide TylenolExcedrin PM(*Denotes prescription needed to obtain these medications)Learning Topic: Procedure/Surgery:Instructions reviewed for arrival time, parking and admission.Specific topics reviewed and discussed with all surgical patients include:No eating, drinking, or smoking after midnight prior to surgery.Medications as prescribed by anesthesia or the physician.Bowel Prep as indicated.Review of information contained in surgical packetPre-operative and intra-operative general activities were reviewed including:Holding Area, assessments, surgical positioning, and Family Waiting Area.Written post-operative instructions were given to the patient regarding post-opactivity, pain control, symptoms to report.Post-operative instructions provided and reviewed with patient/family:ACTIVITY - No heavy lifting (>5-10 lbs), no pushing/pulling, OK to climb stairsDRIVING - No driving while taking prescription pain medication, or within 24hours of anesthesia, OK to ride in a car.DIET - Advance diet as tolerated and as ordered by MD, drink 8 glasses of watera day, eat a diet high in protein and fiber unless otherwise directed by MD.CATHETER - Will be inserted during surgery, you may go home with a catheter. Ifyou go home with a catheter you will have to come back to the office for avoiding trial, UTI symptoms reviewed and patient instructed to notify MD of anyof these symptoms.INCISION CARE - Keep incision clean and dry, wyatt to be removed 7-10 daysafter surgery, steristrips do not need to be removed by MDBATHING - OK to shower after surgery unless otherwise directed by MD, no tubbaths.PAIN MEDICATION - IV pain medication after surgery, IV BEAD FORMING MACHINE OPERATOR if ordered by MD,discharged home with a prescription for PO pain medication, pain managementafter surgery, side effects of pain medication (including constipation,dizziness, drowsiness, and medication interactions).DVT PROPHYLAXIS - Early ambulation, SCDs, injectable anticoagulants (heparin,lovenox, etc)RESPIRATORY - Incentive spirometer, coughing/deep breathing exercises,ambulation.RETURN TO WORK - As directed by physician, please send any [facility] papers [facility] centeran's departmental secretary.SYMPTOMS TO NOTIFY MD - Fever, chills, nausea, vomiting, increased or severepain, heavy vaginal bleeding, foul smelling vaginal drainage, pain or swellingin extremities.URGENT SYMPTOMS - Call 911 or go to ER if any shortness of breath, difficultybreathing, or chest pain.HOW TO CONTACT PHYSICIAN - Physician's office phone number given to patient, ifafter hours patient instructed to call hoop punch and coiler operator and ask for the doctor creative consultant.Patient and family have phone number to call 24 hours/day.Patient Evaluation: Verbalizes understandingPatient and/or family express understanding of upcoming surgery and theoperative process. Questions answered.Follow Up Plan: Follow up as neededSupplemental Material Given:Pre-operative teaching packet provided to the patient:INPATIENT/OUTPATIENT printed instructions; Post-operative instruction sheet,bowel prep instruction sheetFor questions contact: office at [phone] By Karen Leblanc RN [facility] HOSP Patient Update (GYNML) JOANA CHRISTIANSEN ([id number]) 1970 FDate Time Provider Department06/22/18 ARUN TEAGUE (BREWERY PUMPER) GYNML During your visit today, we recorded the following information about you:Allergies As of Date: 06/22/2018 Noted Allergy ReactionBIAXIN (CLARITHROMYCIN) 01/15/2006PENICILLINS 01/15/2006SULFA (SULFONAMIDE ANTIBIOTICS) 09/25/2013 2 - RashDate Reviewed: 06/17/2018Reviewed by: Deep Plascencia - Fully AssessedOrder(s):SURGICAL REQUEST - ELECTIVE [[id number]] Order #: [id number]: 1Prescriptions as of 06/22/2018 Sig: EXEMESTANE 25 MG TABLET Take 1 tablet by mouth once d* ADVAIR DISKUS 500 MCG-50 MCG/* 1 Puff twice daily. PROAIR HFA 90 MCG/ACTUATION A* Inhale 1 Puff as instructed e* * MULTIVITAMIN TABLET Take 1 tablet by mouth once d*Problem List As Of Date 06/22/2018 Noted Resolved CHR ETHMOIDAL SINUSITIS [J32.2] INVALID FOR* CHR MAXILLARY SINUSITIS [J32.0] INVALID FOR* CHR FRONTAL SINUSITIS [J32.1] INVALID FOR* CHR SPHENOIDAL SINUSITIS [J32.3] INVALID FOR* Mastodynia [N64.4] INVALID FOR* Fibrocystic Breast [N60.19] INVALID FOR* Enlarged Lymph Node [R59.9] INVALID FOR* Breast cancer [C50.919] INVALID FOR* Malignant neoplasm of breast (female), unspecif*INVALID FOR* Unspecified asthma, with status asthmaticus [J4* 07/22/2016 More... Pain, joint, hip, right [M25.551] INVALID FOR* Nonspecific (abnormal) findings on radiological*INVALID FOR* Sacral insufficiency fracture [M84.48XA] INVALID FOR* Osteoporosis with fracture [M80.00XA] INVALID FOR* Personal history of malignant neoplasm of breas*INVALID FOR* Radiotherapy follow-up examination [Z09] INVALID FOR* Thickened endometrium [R93.8] INVALID FOR* More... Status:Closed by ARUN TEAGUE CNP on 06/22/18 Normal [facility] Vital Signs Date Time Vital Sign Value Performing Clinician Facility 12-10-2023 08:00-0500 Body height 172.7 cm Cheryl Garcia MD Work Phone: [facility] 12-10-2023 08:00-0500 Body temperature 97.5 [degF] Cheryl Garcia MD Work Phone: [facility] 12-10-2023 08:00-0500 Body weight 66.5 kg Cheryl Garcia MD Work Phone: [facility] 12-10-2023 08:00-0500 Diastolic blood pressure 68 mm[Hg] Cheryl Garcia MD Work Phone: [facility] 12-10-2023 08:00-0500 Heart rate 79 /min Cheryl Garcia MD Work Phone: [facility] 12-10-2023 08:00-0500 Systolic blood pressure 119 mm[Hg] Cheryl Garcia MD Work Phone: [facility] 09-27-2023 14:00-0500 Body height 172.72 cm Joon Ball Other [facility] [employer] Other 09-27-2023 14:00-0500 Body mass index (BMI) [Ratio] 21.77 kg/m2 Joon Ball Other [facility] Other 09-27-2023 14:00-0500 Body weight 64.96 kg Joon Ball Other [facility] Other 09-27-2023 14:00-0500 Diastolic blood pressure 78 mm[Hg] Joon Ball Other [facility] Other 09-27-2023 14:00-0500 Respiratory rate 12 /min Joon Ball Other [facility] Other 09-27-2023 14:00-0500 Systolic blood pressure 117 mm[Hg] Joon Ball Other [facility] Other 08-26-2023 11:27-0500 Body temperature 96.69 [degF] GABBY Harden MD Work Phone: [facility] 08-26-2023 11:27-0500 Body weight 66.95 kg GABBY Harden MD Work Phone: [facility] 08-26-2023 11:27-0500 Diastolic blood pressure 73 mm[Hg] GABBY Harden MD Work Phone: [facility] 08-26-2023 11:27-0500 Heart rate 75 /min GABBY Harden MD Work Phone: [facility] 08-26-2023 11:27-0500 Respiratory rate 18 /min GABBY Harden MD Work Phone: [facility] 08-26-2023 11:27-0500 SaO2% (BldA) [Mass fraction] 99 % GABBY Harden MD Work Phone: [facility] 08-26-2023 11:27-0500 Systolic blood pressure 120 mm[Hg] GABBY Harden MD Work Phone: [facility] 08-26-2022 09:40-0500 Body temperature 97.11 [degF] GABBY Harden MD Work Phone: [facility] 08-26-2022 09:40-0500 Body weight 64.41 kg GABBY Harden MD Work Phone: [facility] 08-26-2022 09:40-0500 Diastolic blood pressure 78 mm[Hg] GABBY Harden MD Work Phone: [facility] 08-26-2022 09:40-0500 Heart rate 59 /min GABBY Harden MD Work Phone: [facility] 08-26-2022 09:40-0500 Respiratory rate 16 /min GABBY Harden MD Work Phone: [facility] 08-26-2022 09:40-0500 SaO2% (BldA) [Mass fraction] 96 % GABBY Harden MD Work Phone: [facility] 08-26-2022 09:40-0500 Systolic blood pressure 124 mm[Hg] GABBY Harden MD Work Phone: [facility] 07-22-2022 12:53-0400 Body height 171.5 cm Roosevelt Ribeiro MD Work Phone: [facility] 07-22-2022 12:53-0400 Body temperature 97.2 [degF] Roosevelt Ribeiro MD Work Phone: [facility] 07-22-2022 12:53-0400 Body weight 65.14 kg Roosevelt Ribeiro MD Work Phone: [facility] 07-22-2022 12:53-0400 Diastolic blood pressure 87 mm[Hg] Roosevelt Ribeiro MD Work Phone: [facility] 07-22-2022 12:53-0400 Heart rate 75 /min Roosevelt Ribeiro MD Work Phone: [facility] 07-22-2022 12:53-0400 Respiratory rate 16 /min Roosevelt Ribeiro MD Work Phone: [facility] 07-22-2022 12:53-0400 SaO2% (BldA) [Mass fraction] 97 % Roosevelt Ribeiro MD Work Phone: [facility] 07-22-2022 12:53-0400 Systolic blood pressure 117 mm[Hg] Roosevelt Ribeiro MD Work Phone: [facility] Encounters Encounter Date Encounter Type Care Provider Facility Start: 07-26-2024 End: 07-26-2024 ambulatory [facility] Facility[facility] Start: 04-14-2024 End: 04-14-2024 ambulatory [facility] Work Phone: Start: 04-14-2024 End: 04-14-2024 Patient encounter procedure [facility] Work Phone: Start: 03-03-2024 End: 03-03-2024 ambulatory [facility] Work Phone: Start: 03-03-2024 End: 03-03-2024 Patient encounter procedure [facility] Work Phone: Start: 12-17-2023 End: 12-17-2023 Patient encounter procedure [facility] Work Phone: Start: 12-13-2023 Telephone encounter Cheryl Garcia MD Work Phone: Rheumatology Comment on above: Results Start: 12-10-2023 End: 12-10-2023 ambulatory JOON MIRAMONTES Facility:[facility] Start: 12-10-2023 End: 12-10-2023 Patient encounter procedure Cheryl Garcia MD Work Phone: [facility] Comment on above: Osteopenia of multip le sites (Primary Dx); Encounter for long-term (current) use of medications; History of breast cancer Start: 09-27-2023 End: 09-27-2023 ambulatory Joon Miramontes Other 24h00 Other Start: 09-27-2023 Encounter for genera l adult medical examination without abnormal findings Joon [facility] Start: 09-27-2023 Periodic preventive med est patient 40-64yrs Joon Miramontes [facility] Start: 08-26-2023 End: 08-26-2023 ambulatory Ariela HARDEN Facility:[facility] Start: 08-26-2023 End: 08-26-2023 Patient encounter procedure Ariela Harden MD Work Phone: Radiation Oncology Comment on above: History of breast ca ncer (Primary Dx) Start: 08-26-2022 End: 08-26-2022 Patient encounter procedure Ariela Harden MD Work Phone: Radiation Oncology Comment on above: Radiotherapy follow- up examination (Primary Dx) Start: 07-22-2022 End: 07-22-2022 ambulatory Roosevelt Ribeiro MD Work Phone: Hematology/Oncology Comment on above: History of breast ca ncer (Primary Dx); Osteopenia of lumbar spine Start: 07-22-2022 End: 07-22-2022 Patient encounter procedure Roosevelt Ribeiro MD Work Phone: [facility] Start: 07-17-2022 Encounter for genera l adult medical examination without abnormal findings DR JOON MIRAMONTES [facility] Start: 07-17-2022 End: 07-18-[address] DOCTOR ORTIZ Facility:[facility] Start: 07-15-2022 End: 07-16-[address] JOON MIRAMONTES Facility:[facility] Start: 07-15-2022 End: 07-16-2022 Encounter for general adult medical examination without abnormal findings DR JOON MIRAMONTES Facility:[facility] Start: 02-25-2022 End: 02-25-2022 ambulatory HÉCTOR ZEPEDA Facility:[facility] Start: 07-28-2018 End: 07-28-2018 Patient encounter [facility] Plan of Treatment Date Care Activity Detail Author Start: 07-21-2026 [facility] Start: 07-22-2025 DIABETES SCREEN DIABETES SCREEN [facility] Start: 12-10-2023 End: 03-10-2024 25-hydroxyvitamin D3 [Mass/volume] in Serum or Plasma [facility] Work Phone: Comment on above: Expected: 12/10/2023 , Expires: 03/10/2024 Start: 12-10-2023 End: 03-10-2024 Calcium [Mass/volume] in Serum or Plasma [facility] Work Phone: Comment on above: Expected: 12/10/2023 , Expires: 03/10/2024 Start: 12-10-2023 End: 03-10-2024 Collagen crosslinked C-telopeptide [Mass/volume] in Serum or Plasma [facility] Work Phone: Comment on above: Expected: 12/10/2023 , Expires: 03/10/2024 Start: 12-10-2023 End: 03-10-2024 CREATININE BLD [facility] Work Phone: Comment on above: Expected: 12/10/2023 , Expires: 03/10/2024 Start: 12-10-2023 End: 03-10-2024 Parathyrin.intact [Mass/volume] in Serum or Plasma [facility] Work Phone: Comment on above: Expected: 12/10/2023 , Expires: 03/10/2024 Start: 10-18-2023 Depression Assessment Depression Ass essment [facility] Start: 07-22-2023 End: 09-21-2023 CBC W Auto Differential panel - Blood CBC + DIFF Lab Routine History of breast cancer Expected: 07/22/2023 (Approximate), Expires: 09/21/2023 [facility] Work Phone: Comment on above: Expected: 07/22/2023 (Approximate), Expires: 09/21/2023 Start: 07-22-2023 End: 09-21-2023 Comprehensive metabolic 2000 panel - Serum or Plasma COMP METABOLIC PANEL Lab Routine History of breast cancer Expected: 07/22/2023 (Approximate), Expires: 09/21/2023 [facility] Work Phone: Comment on above: Expected: 07/22/2023 (Approximate), Expires: 09/21/2023 Start: 06-18-2023 Covid-19 Vaccine ( season) Covid-19 Vaccine ( season) [facility] Start: 06-18-2023 Influenza vaccination Influenza Vacc ine (#1) [facility] Start: 10-18-2022 Depression Assessment Depression Ass essment [facility] Start: 06-18-2022 Influenza vaccination INFLUENZA (#1) [facility] Start: 11-19-2021 COVID-19 VACCINE (3 - Booster for Pfizer series) COVID-19 VACCINE (3 - Booster for Pfizer series) [facility] Start: 10-18-2021 DEPRESSION ASSESSMENT DEPRESSION ASS ESSMENT [facility] Start: 2018 SHINGRIX VACCINE (1 of 2) SHINGRIX VACCINE (1 of 2) [facility] Start: 2013 COLOGUARD (FIT-DNA) COLOGUARD (FIT-D NA) [facility] Start: 2013 Colonoscopy COLONOSCOPY [facility] Start: 2013 COLORECTAL CANCER SCREENING COLORECTAL CANCER SCREENING [facility] Start: [address] COLONOGRAPHY [facility] Start: 2013 FECAL OCCULT BLOOD FECAL OCCULT BLOO D [facility] Start: 2013 Lipid 1996 panel - S cierra or Plasma Lipid Screening [facility] Start: 2013 Lipid panel Lipid Screening [facility] Start: 2013 LIPID SCREEN LIPID SCREEN [facility] Start: 2013 Screening for malign ant neoplasm of colon [facility] Start: 2013 SIGMOIDOSCOPY SIGMOIDOSCOPY [facility] Start: 2008 Mammography [facility] Start: 2008 Screening for malign ant neoplasm of breast Mammogram Screening [facility] Start: 1998 HPV TESTING HPV TESTING [facility] Start: 1998 Screening for malign ant neoplasm of cervix HPV Testing [facility] Start: 1989 PAP TESTING PAP TESTING [facility] Start: 1989 Screening for malign ant neoplasm of cervix Pap Testing [facility] Start: 1987 Urine microalbumin profile [facility] Start: 1986 HEPATITIS C SCREENING HEPATITIS C [facility] Start: 1986 Hepatitis C screening Hepatitis [facility] Start: 1986 HIV SCREENING HIV SCREENING [facility] Start: 1986 HIV screening HIV Screening [facility] Start: 1968 HEPATITIS B (1 of 3 - 3-dose series) HEPATITIS B (1 of 3 - 3-dose series) [facility] Start: 1968 Hepatitis B Vaccine (1 of 3 - 3-dose series) Hepatitis B Vaccine (1 of 3 - 3-dose series) [facility] Immunizations Immunization Date Immunization Notes Care Provider Vincent luevano 09-24-2021 COVID-19 Vaccine Pfi zer - Documentation Purposes Only Joon Miramontes Other [facility] 09-03-2021 COVID-19 Vaccine Pfi zer - Documentation Purposes Only Joon Miramontes Other [facility] 08-18-2021 influenza, injectabl e, quadrivalent, preservative free Roosevelt Ribeiro MD Work Phone: [facility] 08-18-2021 influenza virus vacc ine, unspecified formulation GABBY Harden MD Work Phone: [facility] 08-06-2020 influenza, injectabl e, quadrivalent, preservative free Roosevelt Ribeiro MD Work Phone: [facility] Payers Date Payer Category Payer [facility] [id number] 2019 Unknown [id number] 2019 Unknown [id number] 1968 Unknown [id number] 1968 Unknown [id number] 1968 Unknown [id number] Social History Date Type Detail Facility Start: 08-10-2012 Tobacco smoking stat [facility] Never smoked tobacco [facility] Start: 08-10-2012 Tobacco use and exposure Smokeless tobacco non-user [facility] Start: 07-22-2022 End: 12-10-2023 Alcohol intake Current drinker of alcohol (finding) [facility] Start: 1970 Sex Assigned At Not on file [facility] Start: 07-12-2022 End: 08-26-2022 Exposure to SARS-CoV-2 (event) Not sure [facility] Start: 07-21-2023 End: 12-10-2023 History of Social function [facility] Start: 07-21-2023 End: 12-10-2023 Tobacco use panel [facility] Adult Depression Screening Assessment 0 [facility] Start: 1970 Sex Assigned At Female [facility] Clinical Notes 07-22-2016 to 12-15-2023 Telephone Encounter - FileCheryl MD - 12/15/2023 11:16 AM ESTTelephone Encounter - FileCheryl MD - 12/13/2023 9:21 AM ESTFileCheryl MD - 12/10/2023 8:00 AM EST Note Date & Type Note Facility 12-15-2023 Miscellaneous Notes I discussed lab results with romeo. they are normal. CTX is 393, which is lower half of normal range. She was previously on aromasin, which could have contributed to some decrease in bone density and she has been off this since 2021. At this point will monitor her and she will repeat her bone density shortly after 07/17/24 and she will see me back as a virtual visit after this. will give further treatment recommendations at that time. I called romeo to discuss results. no answer. LMTCB documented in this encounter [facility] 12-10-2023 History of Presen t illness Narrative Images from the original note were not included. The patient is seen in consultation at the request of self for an opinion and advise regarding the management of the patient s osteoporosis. OSTEOPOROSIS AND METABOLIC BONE DISEASE HISTORY and PHYSICAL Gender: female Ethnicity: White Age: [age] year old Chief Complaint: Evaluation for osteopenia TREATMENTS: Osteoporosis - Antiresorptive Treatments Treatment Start Date Stop Date Stop Reason Comment none Osteoporosis - Anabolic Treatments Treatment Start Date Stop Date Stop Reason Comment none Current Calcium, Multivitamin, and Vitamin D Use on File Minerals and Electrolytes - Calcium Replacement Start End CALCIUM ORAL -- Sig - Route: Take by mouth. - ORAL Class: Historical Med Vitamins - D Derivatives Start End cholecalciferol, vitamin D3, (VITAMIN D3 ORAL) -- Sig - Route: Take by mouth. - ORAL Class: Historical Med OSTEOPOROSIS RISK FACTORS Osteoporosis FRAX Risk Factors Fracture(s) Wrist Fracture (Comment: around 2018- fell backwards in exercise class and broke both wrists at same time- was a hard fall, she broke the fall, landing on her outstreched hands) Family History of osteoporosis (Comment: grandmother) No parent with a hip fracture Not a current smoker Glucocorticoid use (Comment: about 2 short steroid tapers per year for asthma/allergies) Previous use No rheumatoid arthritis No secondary osteoporosis No alcohol use more than 3 units per day Osteoporosis Medication Risk Factors No use of Anti-convulsants Aromatase inhibitors No use of Furosemide No use of Proton pump inhibitor No use of Thyroid hormone with oversuppression Osteoporosis Disease-Specific Risk Factors Weight is not less than 127 lbs Height loss 1/2 inch since age 38 normal balance No fall history No history of renal calculi No CKD Caffeine intake: 1-3 c/day Exercise routine: (Comment: walks) REVIEW OF SYSTEMS: General: No fever or chills. HEENT: The patient reports that dentition is fine. No invasive dental work in the last three months and none planned for the future. No eye pain or redness. Lungs: No shortness of breath or cough CV: No chest pain or palpitations. No history of blood clot. Endocrine: no history of diabetes or thyroid disease : no history of kidney disease or kidney stone GI: no GERD. No nausea, vomiting, diarrhea or constipation or abdominal pain. Neurological: No numbness or tingling. No history of seizure. MSK: no joint pain. No back pain Skin: No rash HEME/ONC: has h/o breast cancer, received radiation Osteoporosis History Patient has a history of fracture(s) Wrist Fracture (Comment: around 2018- fell backwards in exercise class and broke both wrists at same time- was a hard fall, she broke the fall, landing on her outstreched hands) FRAX 10-year fracture risk: hip: 11% FRAX 10-year fracture risk: major osteoporotic: 1% Daily Calcium diet: 371 mg Daily Calcium supplementation: 1000 mg Daily Vitamin D: 1000 IU Current Multivitamin: No OB History 6 Para 5 Term AB Living 5 SAB IAB Ectopic Multiple Live Births Obstetric Comments Age of menarche 13 Afb 25 Lmp 08/29/2011 PAST MEDICAL HISTORY Diagnosis Date Breast cancer (HCC) 08/2011 left breast Unspecified asthma, with status asthmaticus Vaginal bleeding has h/o node positive ER/DE positive HER-2/clari positive breast cancer diagnosed 2010 post neoadjuvant trastuzumab plus carboplatin and paclitaxel and 1 year of adjuvant trastuzumab and radiation. she completed 5 years of Tamoxifen and 5 years of Aromasin in 2021. osteopenia PAST SURGICAL HISTORY Procedure Laterality Date BREAST BIOPSY 09/03/2011 left breast DILATION & CURETTAGE DX&/THER NONOBSTETRIC 11/2017 Dilation & curettage DILATION & CURETTAGE DX&/THER NONOBSTETRIC 2017 Dilation & curettage DILATION & CURETTAGE DX&/THER NONOBSTETRIC 2016 Dilation & curettage MASTECTOMY, SIMPLE, COMPLETE 02/12/2012 left breast with SLND MASTECTOMY, SIMPLE, COMPLETE 02/12/2012 prophylactic right breast SEPTOPLASTY/SUBMUCOUS RESECJ W/WO CARTILAGE GRF Family History: FAMILY HISTORY Problem Relation Age of Onset COPD Maternal Grandfather Cancer Paternal Grandmother Asthma Other Allergies: Biaxin [Clarithromycin], Penicillins, and Sulfa (Sulfonamide Antibiotics) Medications: Present: Current Outpatient Medications Medication Sig CALCIUM ORAL Take by mouth. fluticasone propion/salmeterol (ADVAIR DISKUS INHALATION) Inhale as instructed. cholecalciferol, vitamin D3, (VITAMIN D3 ORAL) Take by mouth. fexofenadine HCl (AYAH ALLERGY ORAL) Take by mouth. Ascorbic Acid (VITAMIN C) 250 mg chew Take 500 mg by mouth once daily. PROAIR HFA 90 mcg/actuation inhaler Inhale 1 Puff as instructed every 4 hours as needed. No current facility-administered medications for this visit. Physical Exam: BP 119/68 Pulse 79 Temp 36.4 C (97.5 F) (Temporal) Ht 172.7 cm (5' 8 ) Wt 66.5 kg (146 lb 9.7 oz) LMP 09/18/2011 BMI 22.29 kg/m Last Ht 12/10/23 : 172.7 cm (5' 8 ) 07/21/23 : 171.5 cm (5' 7.52 ) 07/22/22 : 171.5 cm (5' 7.52 ) GEN: NAD, well groomed EYES: conjunctiva and sclera normal. EARS: External ears normal. NOSE/SINUS: Nares normal. Septum midline. Mucosa normal. No drainage or sinus tenderness. THROAT: Normal and no erythema. ORAL: unremarkable NECK: Neck supple, no adenopathy; no thyromegaly HEART: RRR, no murmurs LUNGS: Clear to auscultation. good respiratory effort LYMPH NODES: No cervical lymphadenopathy and no supraclavicular lymphadenopathy. ABDOMEN: Bowel sounds normoactive, no bruits; soft, nontender, without organomegaly or palpable masses. NEURO: Awake, alert and oriented x 3, cranial nerves II-XII grossly intact, reflexes symmetrical, normal gait and no involuntary motions. SKIN: Skin color, texture, turgor normal. No rash. Examination of Back: Profile -Dorsal kyphosis TS: No -Scoliosis: No No point tenderness to palpitation of spine Balance: -Romberg test: Normal -Heel/chauhan test: Normal -Single leg balance: Normal RELEVANT PREVIOUS INVESTIGATIONS: Calcium Date Value Ref Range Status 06/06/2021 9.9 8.5 - 10.2 mg/dL Final 09/18/2020 10.2 8.5 - 10.2 mg/dL Final Calcium, Total Date Value Ref Range Status 07/21/2023 9.7 8.5 - 10.2 mg/dL Final 07/22/2022 9.7 8.5 - 10.2 mg/dL Final Alkaline Phosphatase Date Value Ref Range Status 07/21/2023 87 34 - 123 U/L Final 07/22/2022 89 34 - 123 U/L Final 06/06/2021 94 34 - 123 U/L Final 09/18/2020 83 34 - 123 U/L Final Vitamin D 25 Hydroxy Date Value Ref Range Status 07/22/2022 61.3 31.0 - 80.0 ng/mL Final Comment: Classification of 25 OH Vitamin D status: Deficiency/Insufficiency: < or = 30 ng/ml. Sufficiency/Optimal Levels: 31-80 ng/mL Toxicity: > 100 ng/mL. Test performed by chemiluminescent immunoassay. 09/18/2020 41.4 31.0 - 80.0 ng/mL Final Comment: Classification of 25 OH Vitamin D status: Insufficiency/Moderate Deficiency: < or = 30 ng/mL Sufficiency/Optimal Levels: 31 to 80 ng/mL Toxicity: > 100 ng/mL Test performed by chemiluminescent immunoassay. Creatinine Date Value Ref Range Status 07/21/2023 0.83 0.58 - 0.96 mg/dL Final 07/22/2022 0.74 0.58 - 0.96 mg/dL Final 06/06/2021 0.82 0.58 - 0.96 mg/dL Final 09/18/2020 0.80 0.58 - 0.96 mg/dL Final FSH Date Value Ref Range Status 05/25/2013 23.1 mU/mL Final Comment: Reference range: Follicular: 2-11 Midcycle: 10-30 Luteal: 1-9 Post Anjana: 20-100 Male: 1.0-10.0 Estradiol 17B Date Value Ref Range Status 08/17/2018 <25 pg/mL Final Comment: This test is not suitable for patients receiving treatment with the drug Fulvestrant (Faslodex). The drug causes an interference leading to falsely elevated estradiol results. Menstrual cycle Estradiol reference ranges: Follicular : < 234 pg/mL Ovulation : 41 to 398 pg/mL Luteal : < 342 pg/mL Estradiol reference ranges vary by gestational period: First trimester : 154 to 3243 pg/mL Second trimester : 1561 TO 14797 pg/mL Third trimester : 8285 to >92737 pg/mL Post-menopausal Estradiol reference range: < 41 pg/mL Reference: 1. Estradiol - E2 (Estradiol III) [package insert V 3.0 Kazakh]. [facility], [place], [place], March 2016. 05/11/2016 <5 pg/mL Final Comment: This test is not suitable for patients receiving treatment with the drug Fulvestrant (Faslodex). The drug causes an interference leading to falsely elevated estradiol results. NOTE: New Reference Range. Ref. Range: Early Foll. = 20-82, Late Foll. = 80-378, Luteal = 50-150, Post menopause = <30. 11/13/2015 81 pg/mL Final Comment: NOTE: New Reference Range. Follicular : 12-233 pg/mL Ovulation : 41-398 pg/mL Luteal phase : 22-341 pg/mL Post menopausal: <30 pg/mL Protein, Total Date Value Ref Range Status 07/21/2023 6.9 6.3 - 8.0 g/dL Final 07/22/2022 7.1 6.3 - 8.0 g/dL Final 06/06/2021 7.4 6.3 - 8.0 g/dL Final 09/18/2020 7.7 6.3 - 8.0 g/dL Final Albumin Date Value Ref Range Status 07/21/2023 4.9 3.9 - 4.9 g/dL Final 07/22/2022 4.6 3.9 - 4.9 g/dL Final 06/06/2021 5.0 (H) 3.9 - 4.9 g/dL Final 09/18/2020 4.8 3.9 - 4.9 g/dL Final IgA Date Value Ref Range Status 01/15/2006 139 78 - 391 mg/dL Final 09/23/23 tsh 3.052 calcium 8.4 creatinine 0.77 glucose 92 alk phos 86 BONE DENSITY RESULTS: 07/17/22 terra wyatt lunar L1-L4 0.916 T -2.2 left fem neck 0.835 T -1.5 left total hip 0.788 T -1.7 there was a decline in mean dual hip compared to 2018 IMPRESSION: Osteopenia on bmd- lowest T score -2.2 in the spine with history of wrist fractures h/o breast cancer and was treated with chemo and radiation and completed aromasin in 2021 Osteoporosis FRAX Risk (WHO 10-year fracture risk assessment) FRAX 10-year fracture risk: hip: 11% FRAX 10-year fracture risk: major osteoporotic: 1% PLAN: Osteopenia/osteoporosis was discussed with her Calcium 1200 to 1500 mg daily recommended- if cannot achieve this through diet, then calcium citrate supplement recommended in divided doses Continue vitamin D Will check: Office Visit on 12/10/23 CALCIUM TOTAL BLD CREATININE BLD VITAMIN D 25 HYDROXY C TELOPEPTIDE, BETA PTH INTACT BLD Will make further recommendations after reviewing lab results- I will call her once they are resulted Weight bearing exercise as tolerated recommended Fall precautions discussed Repeat bmd on same machine as prior around 06/2024 recommended Continue f/u with PCP for routine health maintenance rba of meds discussed. Cheryl Garcia MD documented in this encounter [facility] 12-10-2023 Note HNO ID: [id number] Author: CHERYL GARCIA MD Service: ? Author Type: Physician Type: Progress Notes Filed: 12/13/2023 09:19 Note Text: The patient is seen in consultation at the request of self for an opinion and advise regarding the management of the patient?s osteoporosis. OSTEOPOROSIS AND METABOLIC BONE DISEASE HISTORY and PHYSICAL Gender: female Ethnicity: White Age: [age] year old Chief Complaint: Evaluation for osteopenia TREATMENTS: Osteoporosis - Antiresorptive Treatments Treatment Start Date Stop Date Stop Reason Comment none Osteoporosis - Anabolic Treatments Treatment Start Date Stop Date Stop Reason Comment none Current Calcium, Multivitamin, and Vitamin D Use on File Minerals and Electrolytes - Calcium Replacement Start End CALCIUM ORAL -- Sig - Route: Take by mouth. - ORAL Class: Historical Med Vitamins - D Derivatives Start End cholecalciferol, vitamin D3, (VITAMIN D3 ORAL) -- Sig - Route: Take by mouth. - ORAL Class: Historical Med OSTEOPOROSIS RISK FACTORS Osteoporosis FRAX Risk Factors Fracture(s) Wrist Fracture (Comment: around 2018- fell backwards in exercise class and broke both wrists at same time- was a hard fall, she broke the fall, landing on her outstreched hands) Family History of osteoporosis (Comment: grandmother) No parent with a hip fracture Not a current smoker Glucocorticoid use (Comment: about 2 short steroid tapers per year for asthma/allergies) Previous use No rheumatoid arthritis No secondary osteoporosis No alcohol use more than 3 units per day Osteoporosis Medication Risk Factors No use of Anti-convulsants Aromatase inhibitors No use of Furosemide No use of Proton pump inhibitor No use of Thyroid hormone with oversuppression Osteoporosis Disease-Specific Risk Factors Weight is not less than 127 lbs Height loss 1/2 inch since age 38 normal balance No fall history No history of renal calculi No CKD Caffeine intake: 1-3 c/day Exercise routine: (Comment: walks) REVIEW OF SYSTEMS: General: No fever or chills. HEENT: The patient reports that dentition is fine. No invasive dental work in the last three months and none planned for the future. No eye pain or redness. Lungs: No shortness of breath or cough CV: No chest pain or palpitations. No history of blood clot. Endocrine: no history of diabetes or thyroid disease : no history of kidney disease or kidney stone GI: no GERD. No nausea, vomiting, diarrhea or constipation or abdominal pain. Neurological: No numbness or tingling. No history of seizure. MSK: no joint pain. No back pain Skin: No rash HEME/ONC: has h/o breast cancer, received radiation Osteoporosis History Patient has a history of fracture(s) Wrist Fracture (Comment: around 2019- fell backwards in exercise class and broke both wrists at same time- was a hard fall, she broke the fall, landing on her outstreched hands) FRAX 10-year fracture risk: hip: 1% FRAX 10-year fracture risk: major osteoporotic: 11% Daily Calcium diet: 371 mg Daily Calcium supplementation: 1000 mg Daily Vitamin D: 1000 IU Current Multivitamin: No OB History 6 Para 5 Term AB Living 5 SAB IAB Ectopic Multiple Live Births Obstetric Comments Age of menarche 13 Afb 25 Lmp 08/29/2011 PAST MEDICAL HISTORY Diagnosis Date Breast cancer (HCC) 08/2011 left breast Unspecified asthma, with status asthmaticus Vaginal bleeding has h/o node positive ER/DE positive HER-2/clari positive breast cancer diagnosed 2010 post neoadjuvant trastuzumab plus carboplatin and paclitaxel and 1 year of adjuvant trastuzumab and radiation. she completed 5 years of Tamoxifen and 5 years of Aromasin in 2021. osteopenia PAST SURGICAL HISTORY Procedure Laterality Date BREAST BIOPSY 09/03/2011 left breast DILATION AND CURETTAGE DXAND/THER NONOBSTETRIC 11/2017 Dilation AND curettage DILATION AND CURETTAGE DXAND/THER NONOBSTETRIC 2016 Dilation AND curettage DILATION AND CURETTAGE DXAND/THER NONOBSTETRIC 2015 Dilation AND curettage MASTECTOMY, SIMPLE, COMPLETE 02/12/2012 left breast with SLND MASTECTOMY, SIMPLE, COMPLETE 02/12/2012 prophylactic right breast SEPTOPLASTY/SUBMUCOUS RESECJ W/WO CARTILAGE GRF Family History: FAMILY HISTORY Problem Relation Age of Onset COPD Maternal Grandfather Cancer Paternal Grandmother Asthma Other Allergies: Biaxin [Clarithromycin], Penicillins, and Sulfa (Sulfonamide Antibiotics) Medications: Present: Current Outpatient Medications Medication Sig CALCIUM ORAL Take by mouth. fluticasone propion/salmeterol (ADVAIR DISKUS INHALATION) Inhale as instructed. cholecalciferol, vitamin D3, (VITAMIN D3 ORAL) Take by mouth. fexofenadine HCl (AYAH ALLERGY ORAL) Take by mouth. Ascorbic Acid (VITAMIN C) 250 mg chew Take 500 mg by mouth once daily. PROAIR HFA 90 mcg/actuation inhaler Inhale 1 Puff as instructed hossein (more content not included)... [facility] 09-27-2023 Evaluation note Encounter Date Diagnosis Assessment Notes Sep, Wellness examination (ICD-10 - Z00.00) Healthy diet and exercise. Reviewed age-appropriate preventive testing recommended. Sep, Osteopenia of multiple sites (ICD-10 - M85.89) Ca and Vit D supplements. Weight bearing exercises Recommend referral to Rheumatology for treatment advice Sep, Mild intermittent asthma without complication (ICD-10 - J45.20) 11 Dec, 2023 Other decreased white blood cell (WBC) count (ICD-10 - D72.818) Minimal decrease in total white count w/ normal differential w/ exception of chronic eosinophilia. Repeat in 3 months Sep, Hx of breast cancer (ICD-10 - Z85.3) B/L mastectomy 5 years of Tamoxifen 5 years of Aromitase inhibitor No s/s recurrence Sep, Other Well controlled Using LABA/ICS intermittently Rare use of JOSE. Daily use of Flonase. Continue present treatment w/o change UTD w/ vaccine 24h00 Other 11-09-2023 History of Present illness Narrative* Ariela Harden MD - 08/26/2023 11:30 AM EST Images from the original note were not included. Radiation Oncology - Follow Up Note PATIENT NAME: Romeo Christiansen PATIENT DIAGNOSIS: Breast cancer, left, T3N1 invasive ductal carcinoma , ER/DE and HER2/clari positive. s/p neoadjuvant chemotherapy followed by mastectomy followed by adjuvant chest wall and regional lymph node radiation. RADIATION SUMMARY: 50 Gy to the left chest wall and regional nodel areas and a total 65 Gy to the ranjeet-mastectomy incision area completed radiation May 06, 2012 INTERVAL HISTORY: Patient states she has been doing well. Denies new problems. Denies chest pain, skin changes or rash. Denies upper extremity paresthesias or swelling. ALLERGIES: ALLERGIES Allergen Reactions Biaxin [Clarithromy* Rash Penicillins Rash Sulfa (Sulfonamide * Rash MEDICATIONS: fluticasone propion/salmeterol (ADVAIR DISKUS INHALATION) Inhale as instructed. cholecalciferol, vitamin D3, (VITAMIN D3 ORAL) Take by mouth. fexofenadine HCl (AYAH ALLERGY ORAL) Take by mouth. Ascorbic Acid (VITAMIN C) 250 mg chew Take 500 mg by mouth once daily. PROAIR HFA 90 mcg/actuation inhaler Inhale 1 Puff as instructed every 4 hours as needed. multivitamin ORAL tablet Take 1 tablet by mouth once daily. PHYSICAL EXAM: 08/26/23 1127 BP: 120/73 Pulse: 75 Resp: 18 Temp: (!) 35.9 C (96.7 F) SpO2: 99% Weight: 67 kg (147 lb 9.6 oz) KPS: 100 General Appearance: Well appearing, alert, in no acute distress, well-hydrated, well nourished.. Skin: Skin color, texture, turgor normal, no suspicious rashes or lesions. Neck: Negative findings: no asymmetry, masses, or scars, no adenopathy. Lungs: Lungs clear to auscultation. No wheezing, rhonchi, rales.. Abdomen: Normal abdominal exam, Negative findings: no masses palpable, no organomegaly, soft, non-tender, and spleen non-palpable. Breast: bilateral breasts are surgically absent, evidence of post radiation changes left chest wall, area of telangiectasia stable. No open areas. No areas of induration or swelling or nodularity. ASSESSMENT/PLAN: T3N1 invasive ductal carcinoma of the left breast, ER/DE and HER2/clari positive. s/p neoadjuvant chemotherapy followed by mastectomy followed by adjuvant chest wall and regional lymphnode radiation. Clinically doing well. No evidence recurrence. Stable posttreatment related skin issues are not problematic for her. Recommend follow-up in 1 year. Signed by: Airela Harden MD documented [facility] NoteHNO ID: [id number] Author: Ariela Harden MD Service: ? Author Type: Physician Type: Progress Notes Filed: 08/26/2023 12:47 PM Note Text: Radiation Oncology - Follow Up Note PATIENT NAME: Romeo Christiansen PATIENT DIAGNOSIS: Breast cancer, left, T3N1 invasive ductal carcinoma , ER/DE and HER2/clari positive. s/p neoadjuvant chemotherapy followed by mastectomy followed by adjuvant chest wall and regional lymph node radiation. RADIATION SUMMARY: 50 Gy to the left chest wall and regional nodel areas and a total 65 Gy to the ranjeet-mastectomy incision area completed radiation May 06, 2012 INTERVAL HISTORY: Patient states she has been doing well. Denies new problems. Denies chest pain, skin changes or rash. Denies upper extremity paresthesias or swelling. ALLERGIES: ALLERGIES Allergen Reactions Biaxin [Clarithromy* Rash Penicillins Rash Sulfa (Sulfonamide * Rash MEDICATIONS: fluticasone propion/salmeterol (ADVAIR DISKUS INHALATION) Inhale as instructed. cholecalciferol, vitamin D3, (VITAMIN D3 ORAL) Take by mouth. fexofenadine HCl (AYAH ALLERGY ORAL) Take by mouth. Ascorbic Acid (VITAMIN C) 250 mg chew Take 500 mg by mouth once daily. PROAIR HFA 90 mcg/actuation inhaler Inhale 1 Puff as instructed every 4 hours as needed. multivitamin ORAL tablet Take 1 tablet by mouth once daily. PHYSICAL EXAM: 08/26/23 1127 BP: 120/73 Pulse: 75 Resp: 18 Temp: (!) 35.9 ?C (96.7 ?F) SpO2: 99% Weight: 67 kg (147 lb 9.6 oz) KPS: 100 General Appearance: Well appearing, alert, in no acute distress, well-hydrated, well nourished.. Skin: Skin color, texture, turgor normal, no suspicious rashes or lesions. Neck: Negative findings: no asymmetry, masses, or scars, no adenopathy. Lungs: Lungs clear to auscultation. No wheezing, rhonchi, rales.. Abdomen: Normal abdominal exam, Negative findings: no masses palpable, no organomegaly, soft, non-tender, and spleen non-palpable. Breast: bilateral breasts are surgically absent, evidence of post radiation changes left chest wall, area of telangiectasia stable. No open areas. No areas of induration or swelling or nodularity. ASSESSMENT/PLAN: T3N1 invasive ductal carcinoma of the left breast, ER/DE and HER2/clari positive. s/p neoadjuvant chemotherapy followed by mastectomy followed by adjuvant chest wall and regional lymph node radiation. Clinically doing well. No evidence recurrence. Stable posttreatment related skin issues are not problematic for her. Recommend follow-up in 1 year. Signed by: Ariela Harden [facility]11-09-2022 History of Present illness Narrative* Ariela Harden MD - 08/26/2022 9:42 AM EST Images from the original note were not included. Radiation Oncology - Follow Up Note PATIENT NAME: Romeo Christiansen PATIENT DIAGNOSIS: Breast cancer, left, T3N1 invasive ductal carcinoma , ER/DE and HER2/clari positive. s/p neoadjuvant chemotherapy followed by mastectomy followed by adjuvant chest wall and regional lymph node radiation. RADIATION SUMMARY: 50 Gy to the left chest wall and regional nodel areas and a total 65 Gy to the ranjeet-mastectomy incision area completed radiation May 06, 2012 INTERVAL HISTORY: Romeo Christiansen presents for follow up. She is here approximately 2 years since last visit due to missing appointment given COVID related issues. She states that she has been doing well. The patient denies any other masses or skin changes. She otherwise feels well with no other complaints. She specifically denies headache, vision changes, bone pain, chest pain, SOB, N/V, or focal neurologic deficits. She continues to be very active without limitations. ALLERGIES: ALLERGIES Allergen Reactions Biaxin [Clarithromy* Rash Penicillins Rash Sulfa (Sulfonamide * Rash MEDICATIONS: BREZTRI AEROSPHERE 160-9-4.8 mcg/actuation HFA aerosol inhaler Inhale 2 Puffs as instructed every 12 hours. fexofenadine HCl (AYAH ALLERGY ORAL) Take by mouth. Ascorbic Acid (VITAMIN C) 250 mg chew Take 500 mg by mouth once daily. ADVAIR DISKUS 500-50 mcg/dose dsdv 1 Puff twice daily as needed. PROAIR HFA 90 mcg/actuation inhaler Inhale 1 Puff as instructed every 4 hours as needed. multivitamin ORAL tablet Take 1 tablet by mouth once daily. exemestane (AROMASIN) 25 mg tablet TAKE 1 TABLET BY MOUTH EVERY DAY PHYSICAL EXAM: 08/26/22 0940 BP: 124/78 Pulse: (!) 59 Resp: 16 Temp: 36.2 C (97.1 F) SpO2: 96% Weight: 64.4 kg (142 lb) KPS: 100 General Appearance: Well appearing, alert, in no acute distress, well-hydrated, well nourished.. Skin: Skin color, texture, turgor normal, no suspicious rashes or lesions. Neck: Negative findings: no asymmetry, masses, or scars, no adenopathy. Lungs: Lungs clear to auscultation. No wheezing, rhonchi, rales.. Abdomen: Normal abdominal exam, Negative findings: no masses palpable, no organomegaly, soft, non-tender, and spleen non-palpable. Breast: bilateral breasts are surgically absent, Notable are stable telangectasia post radiation findings in the left ranjeet- incisional area, no palpable masses or nodularity. ASSESSMENT/PLAN: T3N1 invasive ductal carcinoma of the left breast, ER/DE and HER2/clari positive. s/p neoadjuvant chemotherapy followed by mastectomy followed by adjuvant chest wall and regional lymphnode radiation. Clinically doing well. No evidence recurrence. She does have stable posttreatment related skin issues which are not problematic for her. Recommend follow-up in 1 year. Signed by: Ariela Harden MD documented in [facility] History of Present illness Narrative* Roosevelt Ribeiro MD - 07/22/2022 1:15 PM EDT PATIENT NAME: Romeo Christiansen CLINIC NO.: [id number] ATTENDING PHYSICIAN: Roosevelt Ribeiro MD DATE OF SERVICE: July 22, 2022 Some of the elements of this note have been copied from my previous progress note dated 12/16/2021. All the information has been reviewed carefully. Dear Dr. Joon Miramontes MD here is an update on a follow up visit on female Romeo Christiansen at the clinic July 22, 2022 Diagnosis: 1. Initial diagnosis of biopsy-proven left breast cancer, infiltrating ductal carcinoma, grade 3, HER-2/clari positive, ER 95% positive, DE 80% positive August 2011. Treatment History: 1. Neoadjuvant chemotherapy with Taxotere, carboplatin plus trastuzumab and completed 1 year of adjuvant trastuzumab and August 2012. 2. Bilateral mastectomy and left sided axillary dissection with residual tumor, 0.1 cm and 19 lymphnodes negative. Surgery date was 01/2012 3. Left breast radiation therapy completed April 2012. 4. Tamoxifen April 2012 to April 2017 at that point was switched to Aromasin per Dr. Simons. [id number] 5. Abnormal uterine bleeding followed by Dr. Plascencia 6. Genetic testing in 2010 negative for BRCA 1 and 2 per notes. HPI: Romeo Christiansen is a 52 year old year old female here for follow up. Doing very well and denies any new complaints. PAST MEDICAL HISTORY Diagnosis Date Breast cancer (HCC) 08/2011 left breast Unspecified asthma, with status asthmaticus Vaginal bleeding Social History Tobacco Use Smoking status: Never Smokeless tobacco: Never Vaping Use Vaping Use: Never used Substance Use Topics Alcohol use: Yes Comment: Rarely Drug use: No FAMILY HISTORY Problem Relation Age of Onset COPD Maternal Grandfather Cancer Paternal Grandmother Asthma Other Past medical, social and family history reviewed without any changes. REVIEW OF SYSTEMS GENERAL: No weight loss, malaise or fevers. No night sweats. HEENT: Negative for headaches, No changes in hearing or vision, no nose bleeds or other nasal problems. RESPIRATORY: Negative for cough, wheezing and shortness of breath CARDIOVASCULAR: Negative for chest pain, leg swelling and palpitations GI: Negative for abdominal discomfort, blood in stools or black stools and change in bowel habits : Negative for dysuria, frequency and incontinence MUSCULOSKELETAL: Negative for joint pain or swelling, back pain, and muscle pain. SKIN: Negative for lesions, rash, and itching. HEMATOLOGY/LYMPHOLOGY Negative for prolonged bleeding, bruising easily, and swollen nodes. NEURO: Negative for numbness or tingling of hands/feet. No weakness. PHYSICAL EXAMINATION: BP 117/87 Pulse 75 Temp (Src) 97.2 (Temporal) Resp 16 Ht 5' 7.52 (1.72m) Wt 143 lb 9.6 oz (65.1kg) SpO2 97% LMP 09/18/2011 BMI 22.15 kg/(m^2). Wt 63.8 kg (140 lb 9.6 oz) BMI 21.68 kg/m2 Last 3 Encounter Wt Readings: Date: Wt: 03/08/2020 63.8 kg (140 lb 9.6 oz) 09/22/2019 66.5 kg (146 lb 9.6 oz) 08/31/2019 68.1 kg (150 lb 3.2 oz) General appearance:ECOG PERFORMANCE STATUS: 0- Fully active, able to carry on all pre-disease performance w/o restriction. Patient in NAD. Skin: Skin color, texture, turgor normal. No rashes or lesions. Eyes: Anicteric sclera. Pupils are equally round and reactive to light. Extraocular movements are intact. Lymph Nodes: No cervical, supraclavicular, axillary or inguinal adenopathy. Oropharynx: Lips, mucosa, and tongue normal. Back: No pain to percussion. Negative SLR test Lungs clear to auscultation, No wheezing or rhonchi Heart: RRR without murmur, gallop, or rubs. Abdomen soft, non-tender. No masses, organomegaly Extremities: No deformities. No edema Neuro: Gait and speech normal. Reflexes normal and symmetric. Muscular strength intact. Sensation grossly intact. Rectal: Deferred : Deferred Breast: Bilateral breast mastectomy scars without any abnormalities or masses. No axillary masses bilaterally. LABS: Glucose (mg/dL) Date Value 06/06/2021 77 Potassium (mmol/L) Date Value 06/06/2021 4.4 Sodium (mmol/L) Date Value 06/06/2021 141 Chloride (mmol/L) Date Value 06/06/2021 104 CO2 (mmol/L) Date Value 06/06/2021 30 Creatinine (mg/dL) Date Value 06/06/2021 0.82 BUN (mg/dL) Date Value 06/06/2021 17 Anion Gap (mmol/L) Date Value 06/06/2021 7 Calcium (mg/dL) Date Value 06/06/2021 9.9 Protein, Total (g/dL) Date Value 06/06/2021 7.4 Albumin (g/dL) Date Value 06/06/2021 5.0 Bilirubin, Total (mg/dL) Date Value 06/06/2021 0.5 Alkaline Phosphatase (U/L) Date Value 06/06/2021 94 AST (U/L) Date Value 06/06/2021 24 ALT (U/L) Date Value 06/06/2021 17 WBC Date Value Ref Range Status 06/06/2021 4.07 3.70 - 11.00 k/uL Final RBC Date Value Ref Range Status 06/06/2021 4.76 3.90 - 5.20 m/uL Final Hemoglobin Date Value Ref Range Status 06/06/2021 14.2 11.5 - 15.5 g/dL Final Hematocrit Date Value Ref Range Status 06/06/2021 43.8 36.0 - 46.0 % Final MCV Date Value Ref Range Status 06/06/2021 92.0 80.0 - 100.0 fL Final MCH Date Value Ref Range Status 06/06/2021 29.8 26.0 - 34.0 pG Final MCHC Date Value Ref Range Status 06/06/2021 32.4 30.5 - 36.0 g/dL Final RDW-CV Date Value Ref Range Status 06/06/2021 12.1 11.5 - 15.0 % Final Platelet Count Date Value Ref Range Status 06/06/2021 237 150 - 400 k/uL Final MPV Date Value Ref Range Status 06/06/2021 9.1 9.0 - 12.7 fL Final Abs Neut (ANC) Date Value Ref Range Status 06/06/2021 1.92 1.45 - 7.50 k/uL Final Lymph% Date Value Ref Range Status 06/06/2021 23.3 % Final Abs Lymph Date Value Ref Range Status 06/06/2021 0.95 (L) 1.00 - 4.00 k/uL Final Tillman% Date Value Ref Range Status 06/06/2021 9.3 % Final Abs Tillman Date Value Ref Range Status 06/06/2021 0.38 <0.87 k/uL Final Abs Eosin Date Value Ref Range Status 06/06/2021 0.75 (H) <0.46 k/uL Final Baso% Date Value Ref Range Status 06/06/2021 1.7 % Final Abs Baso Date Value Ref Range Status 06/06/2021 0.07 <0.11 k/uL Final PATH: Left breast biopsy in August 2011: 1. Left breast ultrasound-guided core needle biopsy (A) - Infiltrating ductal carcinoma, nuclear grade 3. - Ductal carcinoma in situ, high grade, cribriform and solid types and cancerization of the lobules. - See comment. 2. Left axilla, ultrasound-guided core needle biopsy (B) - Metastatic invasive ductal carcinoma involving lymphoid tissue. HER2 Gene Amplification: AMPLIFIED Estrogen receptor: Positive (95% of nuclei staining) Stain intensity: Strong Progesterone receptor: Positive (80% of nuclei staining) Stain intensity: Strong Imaging: Dexa Scan 06/2022: Report pending Assessment and Plan: Romeo 51-year-old with node positive ER/DE positive HER-2/clari positive breast cancer diagnosed 2010post neoadjuvant trastuzumab plus carboplatin and paclitaxel and 1 year of adjuvant trastuzumab. Patient had residual disease but no sharmaine disease at the time of surgery. Completed 5 years of Tamoxifen and 5 years of Aromasin in 2021. Dexa scan with worsening T score and Osteopenia- refer to Endocrine Encouraged exercise and diet. See back in 12 Months for follow up Thank you for the kind referral. If there are any questions and or concerns please do not hesitate to contact me at [phone]. Roosevelt Ribeiro MD Hematology/Medical Oncology [facility] CC: Joon Miramontes I spent a total of 30 minutes on the date of the service which included preparing to see the patient, [id number] patient care, completing clinical documentation, obtaining and/or reviewing separately obtained history, performing a medically appropriate examination and counseling and educating the patient/family/caregiver. documented in this encounterPrem[facility] History of Past illness Narrative* Problem Noted Date Resolved Date Unspecified asthma, with status asthmaticus 07/22/2016 Overview: No hospitalizations. Last use was spring 2010. Trigger: pollen. documented as of this encounter (statuses as of 07/22/2022) [facility] History of Past illness Narrative* Problem Noted Date Resolved Date Unspecified asthma, with status asthmaticus 07/22/2016 Overview: No hospitalizations. Last use was spring 2010. Trigger: pollen. documented as of this encounter (statuses as of 09/01/2022) [facility] History of Past illness Narrative* Problem Noted Date Diagnosed Date Resolved Date Unspecified asthma, with status asthmaticus 07/22/2016 Overview: No hospitalizations. Last use was spring 2010. Trigger: pollen. documented as of this encounter (statuses as of 08/26/2023) [address]05-2016 History of Past illness Narrative* Problem Noted Date Diagnosed Date Resolved Date Unspecified asthma, with status asthmaticus 07/22/2016 Overview: No hospitalizations. Last use was spring 2010. Trigger: pollen. documented as of this encounter (statuses as of 12/10/2023) [address]05-2016 History of Past illness Narrative* Problem Noted Date Diagnosed Date Resolved Date Unspecified asthma, with status asthmaticus 07/22/2016 Overview: No hospitalizations. Last use was spring 2010. Trigger: pollen. documented as of this encounter (statuses as of 12/15/2023) [facility] Diagnosis History of breast cancer- Primary Personal history of malignant neoplasm of breast Osteopenia of lumbar spine documented in this encounter [facility]* Diagnosis Radiotherapy follow-up examination- Primary [facility]* Diagnosis History of breast cancer- Primary Personal history of malignant neoplasm of breast documented in this encounter [facility]* Diagnosis Osteopenia of multiple sites- Primary Encounter for long-term (current) use of medications Encounter for long-term (current) use of other medications History of breast cancer Personal history of malignant neoplasm of breast documented in this encounter [facility]* Diagnosis Onset Date Resolution Status Mild persistent asthma without complication acute Acute sinusitis noneactive Asthma acute Acute sinusitis noneactive [facility] Work Phone: Evaluation note* Diagnosis Onset Date Resolution Status Asthma acute Acute sinusitis noneactive Asthma acute Acute sinusitis noneactive [facility] Work Phone: History general Narrative - Reported* Type Description Date Medical History Malignant neoplasm o f left female breast, unspecified site of breast Medical History History of breast cancer Medical History Mild persistent asthma without c omplication Surgical History COLONOSCOPY Surgical History Dilation and Curettage of Uteru s Surgical History LEEP Procedure Surgical History Mastectomy - Bilateral Hospitalization History see surgical history 24h00 Other Reason for referral (narrative)* Reason Referral for evaluat ion of osteopenia Diagnosis 1 Osteopenia of multip le sites (M85.89) Referral Organization [facility] Kulwinder kang Referring Provider First Name Joon Referring Provider Last Name Kulwinder Referring Provider Specialty Internal Me dicine Referred Organization [facility] Referred Provider File, Cheryl Referred Address [address] [place], [place],[address] Referred Provider Specialty Rheumatology Referral Priority Routine General Notes Mrs. Christiansen's lowest T score is (-2.2) and it is my opinion, that she is at high risk for progression and fragility fractures. Mrs. Christiansen has a history for breast cancer and has completed 5 years of Tamoxifen and 5 years of Aromasin therapy. She is taking 1200g calcium and 1000u vitamin D and continues with weight bearing exercise. She was advised by a local [employer] [facility] not to start therapy and to recheck a DEXA scan in 5 years. I feel Mrs. Christiansen is at increased risk for progression to osteoporosis and fragility fractures due to her hx of antiestrogen therapy. Mrs. Christiansen is being referred for a second opinion on initiating treatment for her advanced osteopenia. Clinical Notes Please include her 2 DEXA scans (have scanned into [facility]) 24h00 Other Summary Purpose Family History No Family History Records FoundNo Family History Records FoundNo Family History Records Found Advance Directives No Advanced Directives Records Found Advance Directive Response Recorded Date/ Time Advance Directives No March 02 3:49pm Reason for Referral Specialty Diagnoses / Procedures Referred By Contac t Referred To Contact Endocrinology Diagnoses Osteopenia of lumbar spine Procedures CONSULT TO ENDOCRINOLOGY OFFICE/OUTPATIENT [facility] 60-74 MINUTES Roosevelt Ribeiro MD [address] [place] [id number] Referral ID Status Reason Start Date Expiration Date Visits Requested Visits Authorized [id number] Authorized PCP Requested Referral 07/22/2022 07/22/2023 1 1 Chief Complaint and Reason for Visit Chief Complaint sinus infection sinus infection Reason for Visit Mild persistent asth ma without complication Acute sinusitis Asthma Acute sinusitis Chief Complaint sinus infection Sinus pressure Reason for Visit Asthma Acute sinusitis Asthma Acute sinusitis Additional Source Comments INFORMATION SOURCE (unrecogn ized section and content) DATE CREATED AUTHOR 09/02/2018 [facility] DATE CREATED AUTHOR AUTHOR'S ORGANIZ ATION [facility] DATE CREATED AUTHOR AUTHOR'S ORGANIZ ATION 07/28/2024 [facility] Source Comments (unrecognize d section and content) In the event this informatio n is protected by the Federal Confidentiality of Alcohol and Drug Abuse Patient Records regulations: The Federal rules restrict any use of the information to criminally investigate or prosecute any alcohol or drug abuse patient.[facility] the event this information is protected by the Federal Confidentiality of Alcohol and Drug Abuse Patient Records regulations: The Federal rules restrict any use of the information to criminally investigate or prosecute any alcohol or drug abuse patient.[facility] the event this information is protected by the Federal Confidentiality of Alcohol and Drug Abuse Patient Records regulations: The Federal rules restrict any use of the information to criminally investigate or prosecute any alcohol or drug abuse patient.[facility] the event this information is protected by the Federal Confidentiality of Alcohol and Drug Abuse Patient Records regulations: The Federal rules restrict any use of the information to criminally investigate or prosecute any alcohol or drug abuse patient.[facility] the event this information is protected by the Federal Confidentiality of Alcohol and Drug Abuse Patient Records regulations: The Federal rules restrict any use of the information to criminally investigate or prosecute any alcohol or drug abuse patient.[facility] Reason for Visit (unrecogniz ed section and content) Reason Comments Breast Cancer Follow up Reason Comments Breast Cancer Reason Comments Results Care Teams (unrecognized sec tion and content) [employer] Manager Relationship Specialty Start Date End Date Joon Miramontes DO PCP - General 01/15/06 Almas Betts [address] [place] [phone] Supervisor Frame Sample [employer] Pattern PUBLIC TRANSPORTATION INSPECTOR 07/25/18 [employer] Manager Relationship Specialty Start Date End Date Joon Miramontes DO PCP - General 01/15/06 Almas Betts [address] [place] [phone] Supervisor Frame Sample And Pattern PUBLIC TRANSPORTATION INSPECTOR 07/25/18 [employer] Club Manager Relationship Specialty Start Date End Date Joon Miramontes DO PCP - General 01/15/06 Almas Betts [address] [place] [phone] Supervisor Frame Sample And Pattern PUBLIC TRANSPORTATION INSPECTOR 07/25/18 [employer] Manager Relationship Specialty Start Date End Date Joon Miramontes DO PCP - General 01/15/06 Almas Betts [address] [place] [phone] Supervisor Frame Sample [employer] Pattern Field Account Manager 07/25/18 [employer] Manager Relationship Specialty Start Date End Date Joon Miramontes DO PCP - General 01/15/06 [facility] [address] [place] [address] Supervisor Frame Sample [employer] Pattern Field Account Manager 07/25/18 Team Status: Active Member Role Status Dates Joon Miramontes , DO Primary Care Provider Active Team Status: Inactive Member Role Status Dates Joon Miramontes , DO Primary Care Provide r, Attending Provider Active Start: December 17, 2023 End: December 17, 2023 Team Status: Inactive Member Role Status Dates Joon Miramontes , DO Primary Care Provide r, Attending Provider Active Start: March 03, 2024 End: March 03, 2024 Team Status: Inactive Member Role Status Dates Joon Kulwinder , DO Primary Care Provide r, Attending Provider Active Start: April 14, 2024 End: April 14, 2024 Goals (unrecognized section and content) Goals may be documented in a n alternate section FOR RECORDS PERTAINING TO PATIENTS WHO ARE OR HAVE BEEN ENROLLED IN A CHEMICAL DEPENDENCY/SUBSTANCEABUSE PROGRAM, SOME INFORMATION MAY BE OMITTED. This clinical summary was aggregated from multiple sources. Caution should be exercised in using it in the provision of clinical care. This summary normalizes information from multiple sources, and as a consequence, information in this document may materially change the coding, format and clinical context of patient data. In addition, data may be omitted in some cases. CLINICAL DECISIONS SHOULD BE BASED ON THE PRIMARY CLINICAL RECORDS. [facility] [employer] [facility]. provides no warranty or guarantee of the accuracy or completeness of information in this document.
--- NOTE | 2024-08-09 15:09 | XR_ITS ---
[address] [address] Patient Name: FAIZA BOSWELL MRN: [id number] date: 1970 Sex: F Assigned Patient Location: [facility] Current Patient Location: Accession/Order Number: [id number] Exam Date: 08/09/2024 15:20 Report Date: 08/10/2024 09:45 At the request of: RUSSELL CASH Procedure: XR DEXA axial skeleton EXAMINATION: XR DEXA axial skeleton HISTORY: Osteopenia of multiple sites Z79.899 COMPARISON: DEXA bone densitometry 07/17/2022 TECHNIQUE: Dual-energy X-ray absorptiometry (DXA) was performed. FINDINGS: SPINE ANALYSIS: Average bone mineral density is 0.882 g/cm2. T-score (standard deviation relative to young adult mean): -2.5 . -3.6% change since prior study. HIP ANALYSIS: Lowest bone mineral density is within the left femoral neck, 0.765 g/cm2. T-score (standard deviation relative to young adult mean): -2.0 . -6.8% change since prior study. XR/XR DEXA axial skeleton IMPRESSION: World Health Organization Classification: Osteoporosis - High Fracture Risk FRAX: Cannot be calculated. Pharmacologic treatment recommendations * No uniform recommendation applies to all patients. Management plans must be individualized. * Consider initiating pharmacologic treatment in postmenopausal women and men >= 50 years of age who have the following: Primary fracture prevention: * T-score <= - 2.5 at the femoral neck, total hip, lumbar spine, 33% radius (some uncertainty with existing data) by DXA. * Low bone mass (osteopenia: T-score between - 1.0 and - 2.5) at the femoral neck or total hip by DXA with a 10-year hip fracture risk >= 3% or a 10-year major osteoporosis-related fracture risk >= 20% (i.e., clinical vertebral, hip, forearm, or proximal humerus) based on the [place]-adapted FRAXregistered model. Secondary fracture prevention: * Fracture of the hip or vertebra regardless of BMD [4, 5]. * Fracture of proximal humerus, pelvis, or distal forearm in persons with low bone mass (osteopenia: T-score between - 1.0 and - 2.5). The decision to treat should be individualized in persons with a fracture of the proximal humerus, pelvis, or distal forearm who do not have osteopenia or low BMD [12, 13]. Phil MS, Evangelist SL, Alida KL, Burke EM, Dominguez KG, AJ, Anna ES. The clinician's guide to prevention and treatment of osteoporosis. Osteoporos Int. 2021;33(10):1655-8042. doi: 10.1007/z14864-058-55252-w. Epub 2021Feb 12. Erratum in: Osteoporos Int. 2021May 14;: PMID: [id number]; PMCID: [id number]. Electronically authenticated by: RED LANG Date: 08/10/2024 09:45
== END 2024-08-09 15:07 | disposition home or self-care (01) ==
LOC: RAD 15:06
PROVIDERS: PCP Internal Medicine
DX: M85.89 Other specified disorders of bone density and structure, multiple sites (principal); Z79.899 Other long term (current) drug therapy; M81.0 Age-related osteoporosis without current pathological fracture
CPT/HCPCS: 77080

== ENCOUNTER 2024-09-29 12:26 | Outpatient (OUT) | payer BC, SELFPAY ==
--- OUTSIDE RECORDS SUMMARY | 2024-09-29 12:34 | XMS_ITS | CCD ---
Author Organization [facility] Care Team Providers Care Retail Greeter Name Role Phone MAHDI, DEEP Unavailable Unavailable MAHDI, DEEP Unavailable Unavailable Joon Miramontes DO Primary Care Provider Almas Betts Unavailable HÉCTOR ZEPEDA Admitting Unavailable DUANE, HÉCTOR Attending Unavailable MAHDI, DEEP Primary Care Unavailable HÉCTOR ZEPEDA Consulting Unavailable MISC, DR TRAN Admitting Unavailable MISC, DR TRAN Attending Unavailable BALL, DR DUPREE Primary Care Unavailable GAYLA RIBEIRO Consulting Unavailable ROCK KAMARA Consulting Unavailable TERRY, DR DUPREE Admitting Unavailable BALL, DR DUPREE Attending Unavailable BALL, DR DUPREE Consulting Unavailable BALL, DR DUPREE Primary Care Unavailable Joon Miramontes DO Primary Care Provider Almas Betts Unavailable Joon Miramontes Unavailable Joon Miramontes DO Primary Care Provider FILE, CHERYL Richmond Referring Unavailable JOON MIRAMONTES Primary Care Unavailable FILE, CHERYL Richmond Attending Unavailable JOON MIRAMONTES Primary Care Unavailable Ariela HARDEN Attending Unavailable Ariela HARDEN Referring Unavailable JOON MIRAMONTES Primary Care Unavailable FILE, CHERYL Richmond Attending Unavailable JOON MIRAMONTES Primary Care Unavailable GAYLA RIBEIRO Attending Unavailable JOON MIRAMONTES Referring Unavailable JOON MIRAMONTES Primary Care Unavailable Ariela HARDEN Attending Unavailable Ariela HARDEN Referring Unavailable JOON MIRAMONTES E Primary Care Unavailable Allergies Allergy Classification Reported Allergen(s) Allergy Type Date of Onset Reaction(s) Facility (13 sources) clarithromycin; Translations: [CLARITHROMYCIN] Drug Allergy 01-16-20 06 Rash [facility] Other [place] [facility]ository (16 sources) Penicillins; Translations: [PENICILLINS] Propensity to adverse reactions to drug (disorder) 01-16-20 06 [facility] Repository (15 sources) Sulfonamides (Antibiotic); Translations: [SULFA (SULFONAMIDE ANTIBIOTICS)] Propensity to adverse reactions to drug (disorder) 09-25-20 13 [facility] Repository (1 source) Sulfonamides (Antibiotic) Drug allergy (disorder) 01-15-20 15 [facility] Repository (1 source) Sulfamethoxazole / Trimethoprim Drug Allergy Unknown [employer] Other (1 source) Substance with penicillin structure and antibacterial mechanism of action (substance) Drug allergy 10-10-20 14 Unknown [employer] Other (1 source) Substance with sulfonamide structure and antibacterial mechanism of action (substance) Drug allergy 10-10-20 14 Unknown [employer] Other (2 sources) Sulfamethoxazole Drug Allergy 12-17-19 24 Unknown Reaction [facility] (2 sources) Trimethoprim Drug Allergy 12-17-19 24 Unknown Reaction [facility] Medications Current Medications Medication Drug Class(es) Dates Sig (Normalized) Sig (Original) [id number] 200 actuat albuterol 0.09 mg/actuat metered dose inhaler (16 sources) beta2-Adrenergic Agonist Start: 03-03-2024 take 1 [...] OF BREATH; Note: Source Status: Continue; Provider: Terry Dupree ( ) Start: 07-08-2015 take 1 puff(s) by in halation every four hours as needed PROAIR HFA 90 mcg/actuation inhaler Inhale 1 Puff as instructed every 4 hours as needed. 07/08/2015 Active take 2 puff(s) by mo uth every four hours as needed for cough Albuterol Sulfate HFA 108 (90 Base) MCG/ACT INHALE 2 PUFFS BY MOUTH EVERY 4 HOURS NEEDED FOR COUGH AND SHORTNESS OF BREATH Active Comment on above: Inhale 1 Puff as ins tructed every 4 hours as needed. ascorbic acid 250 mg chewable tablet (11 sources) Vitamin C take 500 mg by mouth once daily Ascorbic Acid (VITAMIN C) 250 mg chew Take 500 mg by mouth once daily. Active Comment on above: Take 500 mg by mouth once daily. Calcium (8 sources) Phosphate Binder, Calcium CALCIUM ORAL Take by mouth. Active CALCIUM ORAL Gio e by mouth. 0 Active Comment on above: Take by mouth. cholecalciferol 0.05 mg oral tablet (1 source) Vitamin D take 1 tablet by mouth every twenty-four hours Vitamin D 50 MCG (2000 UT) 1 tablet Orally Once a day Active fluticasone propionate 0.05 mg/actuat metered dose nasal spray (3 sources) Corticosteroid Start: 12-17-2023 Fluticasone Propionate Active 1 SPRAY INTRANASAL Daily [...] a day; Note: Source Status: Continue; Provider: Terry Lambert fluticasone propion/salmeterol (ADVAIR DISKUS INHALATION) (9 sources) fluticasone propion/salmeterol (ADVAIR DISKUS INHALATION) Inhale as instructed. Active fluticasone prop ion/salmeterol (ADVAIR DISKUS INHALATION) Inhale as instructed. 0 Active Comment on above: Inhale as instructed . levoFLOXacin 500 mg oral tablet (1 source) Quinolone Antimicrobial Start: 4 take 500 mg by mouth once daily Levofloxacin Active 500 MG PO Daily 14 14 April 14, 2024 12:00am predniSONE 20 mg oral tablet (6 sources) Start: End: 4 Prednisone Active 20 MG PO As Directed [...] 0 As needed for asthma *Reorder from [place] for eRx and Interaction Alerts* Jul, Active Completed/Discontinued Medications Medication Drug Class(es) Dates Sig (Normalized) Sig (Original) azithromycin 250 mg oral tablet (2 sources) Macrolide Antimicrobial Start: 03-03-2024 End: 04-14-2024 Azithromycin Discontinued 250 MG PO As Directed 6 March 03, 2024 12:00am April 14, 2024 10:43am 120 actuat budesonide 0.16 mg/actuat / formoterol fumarate 0.0048 mg/actuat / glycopyrrolate 0.009 mg/actuat metered dose inhaler (3 sources) Corticosteroid, beta2-Adrenergic Agonist Start: 08-07-2022 End: 08-26-2023 take 2 puff(s) by inhalation every twelve hours PHI WALKER 160-9-4.8 mcg/actuation HFA aerosol inhaler Inhale 2 Puffs as instructed every 12 hours. 0 08/07/2022 08/26/2023 Discontinued (Course of therapy completed) Start: 08-06-2022 take 2 puff(s) by in halation every twelve hours as needed Phi Aerosphere 160-9-4.8 MCG/ACT 2 puffs Inhalation every 12 hours for 28 days Jul, Not-Taking/PRN Comment on above: Inhale 2 Puffs as in structed every 12 hours. cholecalciferol, vitamin D3, (VITAMIN D3 ORAL) (5 sources) End: 08-03-2024 cholecalciferol, vitamin D3, (VITAMIN D3 ORAL) Take by mouth. 08/03/2024 Discontinued cholecalciferol, vitamin D3, (VITAMIN D3 ORAL) Take by mouth. 0 Active Comment on above: Take by mouth. doxycycline hyclate 100 mg oral capsule (2 sources) Tetracycline-class Drug Start: 4 End: 4 take 100 mg by mouth twice daily Doxycycline Hyclate Discontinued 100 MG PO Twice daily 14 December 17, 2023 1:00am April 14, 2024 10:42am exemestane 25 mg oral tablet (2 sources) Aromatase Inhibitor Start: 1 End: 2 take 1 tablet by mouth once daily exemestane (AROMASIN) 25 mg tablet TAKE 1 TABLET BY MOUTH EVERY DAY 90 tablet 3 07/16/2021 08/26/2022 Discontinued (Course of therapy completed) Comment on above: TAKE 1 TABLET BY LAURA TH EVERY DAY fexofenadine hydrochloride 180 mg oral tablet (12 sources) Histamine-1 Receptor Antagonist Start: 0 take 1 tablet by mouth every twenty-four hours Fexofenadine HCl 180 MG 1 tablet Orally Once a day for 0 days Jun, Not-Taking/PRN fexofenadine HCl (AYAH ALLERGY ORAL) Take by mouth. Active fexofenadine HCl (AYAH ALLERGY ORAL) Take by [...] a day; Note: Source Status: Continue; Provider: Terry Lambert Start: 03-19-2016 End: 08-26-2022 ADVAIR DISKUS 500-50 mcg/dos e dsdv 1 Puff twice daily as needed. 0 03/19/2016 08/26/2022 Discontinued (Course of therapy completed) take 1 puff(s) by mo uth every twelve hours Advair Diskus 500-50 MCG/ACT INHALE 1 PUFF BY MOUTH EVERY 12 HOURS Inhalation Twice a day Active Comment on above: 1 Puff twice daily a s needed. multivitamin ORAL tablet (4 sources) Start: 02-05-2012 [...] Documented Da te Episodic/Chronic Cancer of breast (20 sources) Malignant tumor of breast ; Translations: [Malignant neoplasm of unspecified site of unspecified female breast] Onset: 08-18-2011 09-17-2011 Chronic Cancer of breast (19 sources) History of malignant neoplasm of breast; Translations: [Personal history of malignant neoplasm of breast] Onset: 07-18-2014 Episodic Diseases of white blood cells (4 sources) Decreased blood leukocyte number; Translations: [Other decreased white blood cell count] Chronic Nonmalignant breast conditions (11 sources) Fibrocystic disease of breast; Translations: [Diffuse cystic mastopathy of unspecified breast] Onset: 07-15-2010 07-15-2010 Chronic Osteoporosis (1 source) Postmenopausal osteoporosis; Translations: [Age-related osteoporosis without current pathological fracture] 08-22-2024 Chronic Other aftercare (1 source) Patient encounter status; Translations: [Other terminal operator (current) drug therapy] 12-10-2023 Episodic Other aftercare (1 source) Long-term current use of drug therapy; Translations: [Other terminal operator (current) drug therapy] 08-22-2024 Episodic Other bone disease and musculoskeletal deformities (2 sources) Osteopenia; Translations: [Other specified disorders of bone density and structure, other site] Episodic Other screening for suspected conditions (not mental disorders or infectious disease) (11 sources) Endometrium thickened; Translations: [Abnormal findings on [...] Problem Date Documented Da te Episodic/Chronic Asthma (17 sources) Uncomplicated mild persistent asthma; Translations: [Mild persistent asthma, uncomplicated] Resolved: 07-22-2016 Chronic Lymphadenitis (11 sources) Lymphadenopathy; Translations: [Enlarged lymph nodes, unspecified] Onset: 07-15-2010 07-15-2010 Episodic Nonmalignant breast conditions (11 sources) Pain of breast; Translations: [Mastodynia] Onset: 07-15-2010 07-15-2010 Episodic Other aftercare (12 sources) Radiotherapy follow-up; Translations: [Encounter for follow-up examination after completed treatment for conditions other than malignant neoplasm] Onset: 07-31-2015 07-31-2015 Episodic Other aftercare (1 source) Other terminal operator (current) drug therapy; Translations: [Encounter for long-term (current) use of medications] Onset: 12-10-2023 Episodic Other bone disease and musculoskeletal deformities (3 sources) Other specified disorders of bone density and structure, multiple sites; Translations: [[facility] D/O BONE DENSITY STRUCT MX SITE] Onset: 07-27-2022 Episodic Other non-traumatic joint disorders (11 sources) Pain in right hip joint; Translations: [Pain in right hip] Onset: 10-25-2012 10-25-2012 Episodic Pathological fracture (20 sources) Stress fracture of sacrum; Translations: [Pathological fracture, other site, initial encounter for fracture] Onset: 11-22-2012 11-22-2012 Episodic Unclassified (13 sources) Abnormal findings on diagnostic imaging of other specified body structures; Translations: [Musculoskeletal finding] Onset: 10-25-2012 10-25-2012 Episodic Unclassified (1 source) CONTACT W/AND (SUSP) EXPOS COVID-19; Translations: [CONTACT W/AND (SUSP) EXPOS COVID-19] Onset: 02-25-2022 Results Test Name Value Interpretation Reference Range Facility [facility] 08-09-2024 CNPN Telephone (RHEUMN) FRANCOIS CHRISTIANSEN ([id number]) 1970 F Date Time Provider Department 08/09/24 FILE, CHERYL KRUSE During your visit today, we recorded the following information about you: Jaelyn Hidalgo 08/09/2024 4:04 PM Addendum Received Bone Density of 08/09/2024 from [facility]. Scanned into chart for review. View External Imaging - Bone Density [ID [id number]] File, Cheryl Richmond MD 08/09/2024 5:35 PM Signed I reviewed images. lowest T score is actually -2.5 in the spine (troch should not be used for diagnosis) . there was significant decline in total mean femur from 2021 to 2023. I will discuss results with her at her upcoming visit. Allergies As of Date: 08/09/2024 Noted Allergy Reaction BIAXIN (CLARITHROMYCIN) 01/15/2006 2 - Rash PENICILLINS 01/15/2006 2 - Rash SULFA (SULFONAMIDE ANTIBIOTICS) 09/25/2013 2 - Rash Date Reviewed: 08/03/2024 Reviewed by: Krista Cameron MA - Fully Assessed Reason for Visit: Received Outside Medical Records [[id number]] Cmt: Bone Density of 08/09/2024 Prescriptions as of 08/09/2024 - CALCIUM ORAL Take by mouth. - fluticasone propion/salmeterol (ADVAIR DISKUS INHALATION) Inhale as instructed. - fexofenadine HCl (AYAH ALLERGY ORAL) Take by mouth. - Ascorbic Acid (VITAMIN C) 250 mg chew Take 500 mg by mouth once daily. - PROAIR HFA 90 mcg/actuation inhaler Inhale 1 Puff as instructed every 4 hours as needed. Problem List As Of Date 08/09/2024 Noted Resolved CHR ETHMOIDAL SINUSITIS [J32.2] 02/22/2006 [...] Thickened endometrium [R93.89] 06/22/2018 Encounter Status:Closed by AGUSTIN BARKSDALE on 08/09/24 Jasmeet Shepard [facility] Walter 08-08-2024 MEGANN Telephone (RHEUMN) FRANCOIS CHRISTIANSEN ([id number]) 1970 F Date Time Provider Department 08/08/24 CHERYL GARCIA During your visit today, we recorded the following information about you: Cheryl Garcia MD 08/08/2024 12:16 PM Signed she is seeing me in follow up this . the plan was for her to repeat her bone density locally prior to the visit. can you ask her if she completed this and can you request results/images if she did it. Cheryl Reese MD 08/09/2024 11:45 AM Signed it does not look like she read the Chibwe message. can you call her and ask her if she completed her bone density and can you request results/images if she did it. she is seeing me tomorrow- so would like to be able to have it for the visit. Jaelyn Shirley 08/09/2024 3:25 PM Addendum Called pt, she confirmed at the outside facility where she had her 1st Bone Density, the machine was not working. She completed her Bone Density today AND will have the results/ images sent over. She resched her appt for 08/22/2024 @ 10:00 am for a vv appt. Allergies As of Date: 08/08/2024 Noted Allergy Reaction BIAXIN (CLARITHROMYCIN) 01/15/2006 2 - Rash PENICILLINS 01/15/2006 2 - Rash SULFA (SULFONAMIDE ANTIBIOTICS) 09/25/2013 2 - Rash Date Reviewed: 08/03/2024 Reviewed by: Krista Cameron MA - Fully Assessed Reason for Visit: Appointment [186] Prescriptions as of 08/09/2024 - CALCIUM ORAL Take by mouth. - fluticasone propion/salmeterol (ADVAIR DISKUS INHALATION) Inhale as instructed. - fexofenadine HCl (AYAH ALLERGY ORAL) Take by mouth. - Ascorbic Acid (VITAMIN C) 250 mg chew Take 500 mg by mouth once daily. - PROAIR HFA 90 mcg/actuation inhaler Inhale 1 Puff as instructed every 4 hours as needed. Problem List As Of Date 08/08/2024 Noted Resolved CHR ETHMOIDAL SINUSITIS [J32.2] 02/22/2006 [...] [R93.89] 06/22/2018 Encounter Status:Closed by FILE, CHERYL Richmond on 08/08/24 [facility] Visit (SP) Office (H EMAVN) FRANCOIS CHRISTIANSEN ([id number]) 1970 F Date Time Provider Department 08/03/24 12:00 PM GAYLA RIBEIRO During your visit today, we recorded the following information about you: Temperature Pulse Respiration Blood pressure 98.5 degrees 81/minute 18/minute 117/80 Weight Height 64.5 kg 1.727 m Gayla Ribeiro MD 08/03/2024 12:01 PM Signed PATIENT NAME: Francois Christiansen CLINIC NO.: [id number] ATTENDING PHYSICIAN: Gayla Ribeiro MD DATE OF SERVICE: August 03, 2024 Some of the elements of this note have been copied from my previous progress note dated 07/21/2023. All the information has been reviewed carefully. Dear Dr. Joon Miramontes MD here is an update on a follow up visit on female Francois Christiansen at the clinic August 03, 2024 Diagnosis: 1. Initial diagnosis of biopsy-proven left breast cancer, infiltrating ductal carcinoma, grade 3, HER-2/clari positive, ER 95% positive, [place] 80% positive August 2011. Treatment History: 1. Neoadjuvant chemotherapy with Taxotere, carboplatin plus trastuzumab and completed 1 year of adjuvant trastuzumab and August 2012. 2. Bilateral mastectomy and left sided axillary dissection with residual tumor, 0.1 cm and 19 lymph nodes negative. Surgery date was 01/2012 3. Left breast radiation therapy completed April 2012. 4. Tamoxifen April 2012 to April 2017 at that point was switched to Aromasin per Dr. Simons. Aromasin 2016-11/2021 5. Abnormal uterine bleeding followed by Dr. Plascencia 6. Genetic testing in 2010 negative for BRCA 1 and 2 per notes. HPI: Francois Christiansen is a 54 year old year old female here for follow up. Doing very well and denies any new complaints. PAST MEDICAL HISTORY Diagnosis Date Breast cancer (HCC) 08/2011 left breast Unspecified asthma, with status asthmaticus Vaginal bleeding Social History Tobacco Use Smoking status: Never Smokeless tobacco: Never Vaping Use Vaping status: Never Used Substance Use Topics Alcohol use: Yes Comment: [...] of hands/feet. No weakness. PHYSICAL EXAMINATION: BP 117/80 Pulse 81 Temp (Src) 98.5 (Temporal Artery) Resp 18 Ht 5' 8 (1.73m) Wt 142 lb 4.9 oz (64.6kg) SpO2 99% LMP 09/18/2011 BMI 21.64 kg/(m2). Wt 63.8 kg (140 lb 9.6 oz) [...] masses bilaterally. LABS: Glucose (mg/dL) Date Value 07/21/2023 99 06/06/2021 77 Potassium (mmol/L) Date Value 07/21/2023 4.0 06/06/2021 4.4 Sodium (mmol/L) Date Value 07/21/2023 138 06/06/2021 141 Chloride (mmol/L) Date Value 07/21/2023 100 06/06/2021 104 CO2 (mmol/L) Date Value 07/21/2023 31 06/06/2021 30 Creatinine (mg/dL) Date Value 12/10/2023 0.80 06/06/2021 0.82 BUN (mg/dL) Date Value 07/21/2023 13 06/06/2021 17 Anion Gap (mmol/L) Date Value 07/21/2023 7 06/06/2021 7 Calcium (more content not included)... Normal [facility] CNOVon 07-26-2024 CNOV Office Visit (JANEA ) CHRISTIANSENFRANCOIS Gregg ([id number]) 1970 F Date Time Provider Department 07/26/24 1:30 PM Ariela HARDEN During your visit today, we recorded the following information about you: Temperature Pulse Blood pressure Weight 97.1 degrees 78/minute 119/79 65.2 kg Ariela Harden MD 08/03/2024 9:45 AM Signed Radiation Oncology - Follow Up Note PATIENT NAME: Francois Christiansen PATIENT DIAGNOSIS: Breast cancer, left, T3N1 invasive ductal carcinoma , ER/NJ and HER2/clari positive. s/p neoadjuvant chemotherapy followed by mastectomy followed by adjuvant chest wall and regional lymph node radiation. RADIATION SUMMARY: 50 Gy to the left chest wall and regional nodel areas and a total 65 Gy to the ranjeet-mastectomy incision area completed radiation May 06, 2012 INTERVAL HISTORY: Patient states she has been doing well. Denies any new problems or concerns. Denies chest pain, skin changes or rash. Denies upper extremity paresthesias or swelling. ALLERGIES: ALLERGIES Allergen Reactions Biaxin [Clarithromy* Rash Penicillins Rash Sulfa (Sulfonamide * Rash MEDICATIONS: CALCIUM ORAL Take by mouth. fluticasone propion/salmeterol (ADVAIR DISKUS INHALATION) Inhale as instructed. fexofenadine HCl (AYAH ALLERGY ORAL) Take by mouth. Ascorbic Acid (VITAMIN C) 250 mg chew Take 500 mg by mouth once daily. PROAIR HFA 90 mcg/actuation inhaler Inhale 1 Puff as instructed every 4 hours as needed. cholecalciferol, vitamin D3, (VITAMIN D3 ORAL) Take by mouth. (Patient not taking: Reported on 07/26/2024) PHYSICAL EXAM: 07/26/24 1331 BP: 119/79 Pulse: 78 Temp: 36.2 ?C (97.1 ?F) SpO2: 95% Weight: 65.2 kg (143 lb 11.8 oz) KPS: 100 General Appearance: Well appearing, [...] bilateral breasts are surgically absent, evidence of stable post radiation changes left chest wall, including area of telangiectasia. No areas of induration or swelling or nodularity. ASSESSMENT/PLAN: T3N1 invasive ductal carcinoma of the left breast, ER/NJ and HER2/clari positive. s/p neoadjuvant chemotherapy followed by mastectomy followed by adjuvant chest wall and regional lymph node radiation. Clinically doing well. No evidence recurrence. Stable mild posttreatment related skin issues. Recommend follow-up in 1 year. Signed by: Ariela Harden MD Referring Provider: Ariela HARDEN [[id number]] Allergies As of Date: 07/26/2024 Noted Allergy Reaction BIAXIN (CLARITHROMYCIN) 01/15/2006 2 - Rash PENICILLINS 01/15/2006 2 - Rash SULFA (SULFONAMIDE ANTIBIOTICS) 09/25/2013 2 - Rash Date Reviewed: 12/10/2023 Reviewed by: Cheryl Garcia MD - Fully Assessed Reason for Visit: Breast Cancer [519] Primary Visit Diagnosis:History of breast cancer [Z85.3] Prescriptions as of 08/03/2024 - CALCIUM ORAL Take by mouth. - [...] as needed. Problem List As Of Date 07/26/2024 Noted Resolved CHR ETHMOIDAL SINUSITIS [J32.2] 02/22/2006 [...] examination [Z09] 07/31/2015 Thickened endometrium [R93.89] 06/22/2018 Disposition: Return in about 1 year (around 07/26/2025). Follow-up and Disposition History for Encounter Date Provider Department Center 07/26/2024 [id number] HARDEN Encounter Status:Closed by Ariela HARDEN on 08/03/24 [facility] FRAN[facility] CH[facility]STI[facility]EN ([id number]) 1970 F Date Time Provider Department 12/13/23 CHERYL GARCIA During your visit today, we recorded the following information about you: Cheryl Garcia MD 12/13/2023 9:24 AM Signed I called francois to discuss results. no answer. LMTCB Cheryl Garcia MD 12/15/2023 11:18 AM Signed I discussed lab results with francois. they are normal. CTX is 393, which [...] by FILE, CHERYL Basilio on 12/15/23 Normal [facility] 25(OH)D3 SerPl-mCncon 2023 25-hydroxyvitamin D3 [Mass/Vol] 49.4 ng/mL Normal 31.0-80.0 [facility] Comment on above: Order Comment: Speci men Type: BLOOD SPECIMENOrdering Facility: [facility] Address: [address] [place] [address] Result Comment: Clas sification of 25 [place] Vitamin D status: Deficiency/Insufficiency: < or = 30 ng/ml. Sufficiency/Optimal Levels: 31-80 ng/mL Toxicity: > 100 ng/mL. Test performed by chemiluminescent immunoassay. Performed By: #### 1 989-3 ####[facility] LABCLIA [id number] [place] [address] [place] CNOVon 12-10-2023 CNOV Office Visit (BONEMN ) KULDIPFRANCOIS Gregg ([id number]) 1970 F Date Time Provider Department 12/10/23 8:00 AM CHERYL GARCIA BONEMN During your visit today, we recorded the [...] Risk Factors Fracture(s) Wrist Fracture (Comment: around 2019- fell backwards [...] asthmaticus Vaginal bleeding has h/o node positive ER/NJ positive HER-2/clari positive breast cancer diagnosed 2010 [...] (ADVAIR DISKUS (more content not included)... Normal [facility] CREATININE BLDon 12-10-2023 Creatinine [Mass/Vol] 0.80 mg/dL Normal 0.58-0.96 [facility] Comment on above: Order Comment: Speci daisy Type: BLOOD SPECIMENOrdering Facility: [facility] Address: [address] [place] [address] Performed By: #### Missy CHASE1, 2731-8, 48929-9 ####[facility] LABCLIA [id number] [place] [address] [place] Creatinine and Glomerular filtration rate.predicted panel (S/P/Bld) 87 mL/min/1.73m??? Normal >=60 [facility] Comment on above: Order Comment: Manuel villa Type: BLOOD SPECIMENOrdering Facility: [facility] Address: [address] [place] [address] Result Comment: Lali mated Glomerular Filtration Rate [...] accurately reflect actual GFR. Performed By: #### C RET1, 2731-8, 70722-8 ####[facility] LABIA [id number] [place] [address] [place] Calcium SerPl-mCncon 024 Calcium [Mass/Vol] 10.1 mg/dL Normal 8.5-10.2 [facility] Comment on above: Order Comment: Manuel villa Type: BLOOD SPECIMENOrdering Facility: [facility] Address: [address] [place] [address] Performed By: #### C RET1, 2731-8, 25364-9 ####[facility] LABIA [id number] [place] [address] [place] Collagen crosslinked C-telop eptide [Mass/Vol]on 12-10-2023 C TELOPEPTIDE, BETA CROSS LINKED 393 pg/mL Normal 183-1060 [facility] Comment on above: Order Comment: Speci men Type: BLOOD SPECIMENOrdering Facility: [facility] Address: [address] [place] [address] Performed By: #### 4 1171-0 ####[facility] [id number] [place] [address] [place] PTH-Intact SerPl-mCncon - Parathyrin.intact [Mass/Vol] 30 pg/mL Normal 15-65 [facility] Comment on above: Order Comment: Speci men Type: BLOOD SPECIMENOrdering Facility: [facility] Address: [address] [place] [address] Performed By: #### C RET1, 2731-8, 18244-6 ####[facility] [id number] [place] [address] [place] Walter 10-22-2023 MEGANN Telephone (RHEUMN) FRANCOIS CHRISTIANSEN ([id number]) 1970 F Date Time Provider Department 10/22/23 FILE, CHERYL KRUSE During your visit today, we recorded the following information about you: Jaelyn Hidalgo 10/22/2023 4:28 PM Signed Received outside medical records from [facility]. Scanned into chart for review. Allergies As of Date: 10/22/2023 Noted Allergy Reaction BIAXIN (CLARITHROMYCIN) 01/15/2006 2 - Rash PENICILLINS 01/15/2006 2 - Rash SULFA (SULFONAMIDE ANTIBIOTICS) 09/25/2013 2 - Rash Date Reviewed: 07/21/2023 Reviewed by: Gayla Ribeiro MD - Fully Assessed Reason for [...] [R93.89] 06/22/2018 Encounter Status:Closed by SHAILESH, CHERYL Richmond on 10/22/23 Normal [facility] CNOVon 08-26-2023 CNOV Office Visit (RADTSA ) FRANCOIS CHRISTIANSEN ([id number]) 1970 F Date Time Provider Department 08/26/23 11:30 AM Ariela HARDEN During your visit today, we recorded the following information about you: Temperature Pulse Respiration Blood pressure 96.7 degrees 75/minute 18/minute 120/73 Weight 67 kg Ariela Harden MD 08/26/2023 12:47 PM Signed Radiation Oncology - Follow Up Note PATIENT NAME: Francois Christiansen PATIENT DIAGNOSIS: Breast cancer, left, T3N1 invasive ductal carcinoma , ER/[place] and HER2/clari positive. s/p neoadjuvant chemotherapy followed [...] invasive ductal carcinoma of the left breast, ER/[place] and HER2/clari positive. s/p neoadjuvant chemotherapy followed by mastectomy followed by adjuvant chest wall and regional lymph node radiation. Clinically doing well. No evidence recurrence. Stable posttreatment related skin issues are not problematic for her. Recommend follow-up in 1 year. Signed by: Ariela Harden MD Referring Provider: Ariela HARDEN [[id number]] Allergies As of Date: 08/26/2023 Noted Allergy Reaction BIAXIN (CLARITHROMYCIN) 01/15/2006 2 - Rash PENICILLINS 01/15/2006 2 - Rash SULFA (SULFONAMIDE ANTIBIOTICS) 09/25/2013 2 - Rash Date Reviewed: 07/21/2023 Reviewed by: Gayla Ribeiro MD - Fully Assessed Reason for [...] Encounter Da (more content not included)... Normal [facility] XR DEXA BONE DENSITYon 07-17 XR DEXA BONE DENSITY DEXA Bone Density Study CLINICAL: Evaluate bone mineral density. Postmenopausal COMPARISON: None FINDINGS: The bone density study was assessed by dual-energy x-ray absorptiometry with the Nursenav scanner. The test results are expressed in [...] by: ROCK KAMARA Date: 2022-07-17 09:51 Normal [facility] CBC AUTO DIFFon 07-15-2022 BASO # 0.1 103/ul Normal 0.0-0.1 [facility] Comment on above: Performed By: #### C BC #### [facility] [address] [address] [address] Kira Mantilla Basophils/100 WBC (Bld) 1.7 % Normal 0.2-2.0 [facility] Comment on above: Performed By: #### C BC #### [facility] [address] [place] [address] Dr. Kira Mantilla EO # 1.0 103/ul Critically high 0.0-0.7 [facility] Comment on above: Performed By: #### C BC #### [facility] [address] [place] [address] Dr. Kira Mantilla Eosinophils/100 WBC (Bld) 18.2 % Critically high 0.9-7.0 [facility] Comment on above: Performed By: #### C BC #### [facility] [address] [place] [address] Dr. Kira Mantilla Erythrocyte distribution width (RBC) [Ratio] 12.3 % Normal 11.0-15.0 [facility] Comment on above: Performed By: #### C BC #### [facility] [address] [place] [address] Dr. Kira Mantilla Hematocrit (Bld) [Volume fraction] 44.1 % Normal 36.0-48.0 [facility] Comment on above: Performed By: #### C BC #### [facility] [address] [place] [address] Dr. Kira Mantilla Hemoglobin (Bld) [Mass/Vol] 14.1 g/dL Normal 12.0-16.0 [facility] Comment on above: Performed By: #### C BC #### [facility] [address] [place] [address] Dr. Kira Mantilla IG # 0.01 10e3/ul Normal 0.00-0.03 [facility] Comment on above: Performed By: #### C BC #### [facility] [address] [place] [address] Dr. Kira Mantilla IG % 0.2 % Normal 0.0-0.5 [facility] Comment on above: Performed By: #### C BC #### [facility] [address] [place] [address] Dr. Kira Mantilla LYMPH # 1.1 103/ul Critically low 1.2-3.8 [facility] Comment on above: Performed By: #### C BC #### [facility] [address] [place] [address] Dr. Kira Mantilla Lymphocytes/100 WBC (Bld) 20.6 % Normal 20.5-60.0 [facility] Comment on above: Performed By: #### C BC #### [facility] [address] [place] [address] Dr. Kira Mantilla MANUAL DIFF REQ NO Normal [facility] Comment on above: Performed By: #### C BC #### [facility] [address] [place] [address] Dr. Kira Mantilla MCH (RBC) [Entitic mass] 29.1 pg Normal 26.7-34.0 [facility] Comment on above: Performed By: #### C BC #### [facility] [address] [place] [address] Dr. Kira Mantilla MCHC (RBC) [Mass/Vol] 32.0 g/dL Normal 29.9-35.2 [facility] Comment on above: Performed By: #### C BC #### [facility] [address] [place] [address] Dr. Kira Mantilla MCV (RBC) [Entitic vol] 91.1 fL Normal 81.0-99.0 [facility] Comment on above: Performed By: #### C BC #### [facility] [address] [place] [address] Dr. Kira Mantilla MONO # 0.6 103/ul Normal 0.3-0.8 [facility] Comment on above: Performed By: #### C BC #### [facility] [address] [place] [address] Dr. Kira Mantilla Monocytes/100 WBC (Bld) 10.5 % Normal 1.7-12.0 [facility] Comment on above: Performed By: #### C BC #### [facility] [address] [place] [address] Dr. Kira Mantilla NEUT # 2.7 103/ul Normal 1.4-6.5 [facility] Comment on above: Performed By: #### C BC #### [facility] [address] [place] [address] Dr. Kira Mantilla Neutrophils/100 WBC (Bld) 48.8 % Normal 43.0-75.0 [facility] Comment on above: Performed By: #### C BC #### [facility] [address] [place] [address] Dr. Kira Mantilla Platelet mean volume (Bld) [Entitic vol] 9.3 fL Critically low 9.5-13.5 [facility] Comment on above: Performed By: #### C BC #### [facility] [address] [place] [address] Dr. Kira Mantilla PLT 262 103/ul Normal 150-450 [facility] Comment on above: Performed By: #### C BC #### [facility] [address] [place] [address] Dr. Kira Mantilla RBC 4.84 106/ul Normal 4.20-5.40 [facility] Comment on above: Performed By: #### C BC #### [facility] [address] [place] [address] Dr. Kira Mantilla WBC 5.4 103/ul Normal 4.0-11.0 [facility] Comment on above: Performed By: #### C BC #### [facility] [address] [place] [address] Dr. Kira Mantilla GLYCOHEMOGLOBIN A1Con 2021 ADA RECOMMENDATION SEE BELOW Normal [facility] Comment on above: Result Comment: ADA RECOMMENDED LIMIT 4.0 - 6.0 ADA THERAPEUTIC TARGET < 7.0 ACTION SUGGESTED > 7.0 Performed By: #### A 1C #### [facility] [address] [place] [address] Dr. Kira Mantilla Glucose [Mass/Vol] 105 mg/dL Normal [facility] Comment on above: Performed By: #### A 1C #### [facility] [address] [place] [address] Dr. Kira Mantilla HbA1c (Bld) [Mass fraction] 5.3 % Normal 4.5-6.2 [facility] Comment on above: Performed By: #### A 1C #### [facility] [address] [place] [address] Dr. Kira Mantilla LIPID PROFILEon 07-15-2022 CHOL-HDL RATIO NORM SEE BELOW Normal [facility] Comment on above: Result Comment: 3.3 - 4.4 LOW RISK 4.4 - 7.1 AVERAGE RISK 7.1 - 11.0 MODERATE RISK >11.0 HIGH RISK Performed By: #### T SH, CMP, LIPID #### [facility] [address] [place] [address] Dr. Kira Mantilla Cholesterol [Mass/Vol] 230 mg/dL Critically high <=200 [facility] Comment on above: Performed By: #### T SH, CMP, LIPID #### [facility] [address] [place] [address] Dr. Kira Mantilla Cholesterol in HDL [Mass/Vol] 90 mg/dL Critically high 40-60 [facility] Comment on above: Performed By: #### T SH, CMP, LIPID #### [facility] [address] [place] [address] Dr. Kira Mantilla Cholesterol in LDL [Mass/Vol] 123.8 mg/dL Normal [facility] Comment on above: Performed By: #### T SH, CMP, LIPID #### [facility] [address] [place] [address] Dr. Kira Mantilla Cholesterol.total /Cholesterol in HDL [Mass ratio] 2.6 {ratio} Normal [facility] Comment on above: Performed By: #### T SH, CMP, LIPID #### [facility] [address] [place] [address] Dr. Kira Mantilla HDL NORMAL > or = 60 mg/dl - LO W CARDIOVASCULAR RISK <40 mg/dl - HIGH CARDIOVASCULAR RISK Normal [facility] Comment on above: Performed By: #### T SH, CMP, LIPID #### [facility] [address] [address] [address] Kira Mantilla LDL CALC NORMAL SEE BELOW Normal [facility] Comment on above: Result Comment: <100 mg/dl OPTIMAL 100 - 129 mg/dl NEAR OR ABOVE OPTIMAL 130 - 159 mg/dl BORDERLINE HIGH 160 - 189 mg/dl HIGH >190 mg/dl VERY HIGH Performed By: #### T SH, CMP, LIPID #### [facility] [address] [address] [address] Kira Mantilla Triglyceride [Mass/Vol] 81 mg/dL Normal <=150 [facility] Comment on above: Performed By: #### T SH, CMP, LIPID #### [facility] [address] [place] [address] Dr. Kira Mantilla VLDL CALC 16.2 mg/dL Normal [facility] Comment on above: Performed By: #### T SH, CMP, LIPID #### [facility] [address] [place] [address] Dr. Kira Mantilla PROF 14(COMP METB)on 022 Albumin [Mass/Vol] 4.1 g/dL Normal 3.4-5.0 [facility] Comment on above: Performed By: #### T MATTHEW CMP, LIPID #### [facility] [address] [place] [address] Dr. Kira Mantilla Albumin/Globulin [Mass ratio] 1.1 {ratio} Normal [facility] Comment on above: Performed By: #### T SH, CMP, LIPID #### [facility] [address] [place] [address] Dr. Kira Mantilla ALP [Catalytic activity/Vol] 86 U/L Normal 46-116 [facility] Comment on above: Performed By: #### T SH, CMP, LIPID #### [facility] [address] [place] [address] Dr. Kira Mantilla ALT [Catalytic activity/Vol] 28 U/L Normal 14-59 [facility] Comment on above: Performed By: #### T SH, CMP, LIPID #### [facility] [address] [place] [address] Dr. Kira Mantilla Anion gap [Moles/Vol] 11.5 mmol/L Normal [facility] Comment on above: Performed By: #### T SH, CMP, LIPID #### [facility] [address] [place] [address] Dr. Kira Mantilla AST [Catalytic activity/Vol] 23 U/L Normal 15-37 [facility] Comment on above: Performed By: #### T SH, CMP, LIPID #### [facility] [address] [place] [address] Dr. Kira Mantilla Bilirubin [Mass/Vol] 0.6 mg/dL Normal 0.2-1.0 [facility] Comment on above: Performed By: #### T SH, CMP, LIPID #### [facility] [address] [place] [address] Dr. Kira Mantilla Calcium [Mass/Vol] 9.6 mg/dL Normal 8.5-10.1 [facility] Comment on above: Performed By: #### T SH, CMP, LIPID #### [facility] [address] [place] [address] Dr. Kira Mantilla Chloride [Moles/Vol] 102 mmol/L Normal 98-107 [facility] Comment on above: Performed By: #### T SH, CMP, LIPID #### [facility] [address] [place] [address] Dr. Kira Mantilla CO2 [Moles/Vol] 29.5 mmol/L Normal 21.0-32.0 [facility] Comment on above: Performed By: #### T SH, CMP, LIPID #### [facility] [address] [place] [address] Dr. Kira Mantilla Creatinine [Mass/Vol] 0.85 mg/dL Normal 0.55-1.02 [facility] Comment on above: Performed By: #### T SH, CMP, LIPID #### [facility] [address] [place] [address] Dr. Kira Mantilla EGFR-AF BELARUSIAN >60 Normal >=60 [facility] Comment on above: Performed By: #### T SH, CMP, LIPID #### [facility] [address] [place] [address] Dr. Kira Mantilla EGFR-NON AF BELARUSIAN >60 Normal >=60 [facility] Comment on above: Performed By: #### T MATTHEW CMP, LIPID #### [facility] [address] [address] [address] Kira Mantilla Globulin (S) [Mass/Vol] 3.8 g/dL Normal [facility] Comment on above: Performed By: #### T MATTHEW, CMP, LIPID #### [facility] [address] [address] [address] Kira Mantilla Glucose [Mass/Vol] 99 mg/dL Normal 74-106 [facility] Comment on above: Performed By: #### T MATTHEW CMP, LIPID #### [facility] [address] [place] [address] Dr. Kira Mantilla Potassium [Moles/Vol] 4.0 mmol/L Normal 3.5-5.1 [facility] Comment on above: Performed By: #### T MATTHEW CMP, LIPID #### [facility] [address] [place] [address] Dr. Kira Mantilla Protein [Mass/Vol] 7.9 g/dL Normal 6.4-8.2 [facility] Comment on above: Performed By: #### T MATTHEW CMP, LIPID #### [facility] [address] [place] [address] Dr. Kira Mantilla Sodium [Moles/Vol] 139 mmol/L Normal 136-145 [facility] Comment on above: Performed By: #### T MATTHEW, CMP, LIPID #### [facility] [address] [place] [address] Dr. Kira Mantilla Urea nitrogen [Mass/Vol] 13.0 mg/dL Normal 7.0-18.0 [facility] Comment on above: Performed By: #### T MATTHEW, CMP, LIPID #### [facility] [address] [place] [address] Dr. Kira Mantilla Urea nitrogen/Creatini ne [Mass ratio] 15.3 mg/mg Normal [facility] Comment on above: Performed By: #### T MATTHEW, CMP, LIPID #### [facility] [address] [place] [address] Dr. Kira Mantilla TSHon 07-15-2022 TSH 1.754 uIU/mL Normal 0.358-3.74 0 [facility] Comment on above: Performed By: #### T SH, CMP, LIPID #### [facility] [address] [place] [address] Dr. Kira Mantilla SYMPTOMATIC COVID-19 ANTIGEN on 02-25-2022 EUA Statement SEE BELOW Normal [facility] Comment on above: Result Comment: This [...] sooner. Performed By: #### C VDAGS #### [facility] [address] [place] [address] Dr. Kira Mantilla SARS-CoV-2 (COVID-19) RNA NELL+probe Ql (Unsp spec) Negative Normal NEGATIVE [facility] Comment on above: Result Comment: CONF IRMATION BY PCR PENDING PER CDC GUIDELINES/ SYMPTOMATIC PATIENT. Performed By: #### C VDAGS #### [facility] [address] [place] [address] Dr. Kira Mantilla ANES Malena 07-28-2018 ANES POST HNO ID: [id number] thor: Mahendra Bagley VeInderervice: AnesthesiologyAuthor Type: AnesthesiologistType: [...] NoneOther Remarks:SIGNATURE: Mahendra Herbert MD PATIENT NAME: Francois ChristiansenDATE: July 28, 2018 : 11:23 AM PAGER/CONTACT #: [phone] [facility] ANES PREOPon 07-28-2018 ANES PREOP HNO ID: [id number] thor: Mahendra Legerervice: AnesthesiologyAuthor Type: AnesthesiologistType: Anesthesia PreOpFiled: 07/28/2018 7:21 AMNote Text:REGIONAL ANESTHESIOLOGY DAY OF SURGERY NOTEPATIENT NAME: Francois ChristiansenMRN: [id number]: 1970Procedure(s) (LRB):DILATION AND CURETTAGE (N/A)Surgeon(s):Deep CamposdiEstimated body [...] 07/07/2018Creatinine 0.90 07/07/2018EKG:normal EKG, normal sinus rhythmVitals: 637BP: 131/81Pulse: 75Resp: 20Temp: 36.7 ?C (98.1 ?F)TempSrc: [...] by mouth once daily.Inpatient medications reviewed in [facility].I have interviewed and examined the patient. I have reviewed the medicalrecord and/or the pre-anesthesia evaluation, pertinent labs, and testresults.Significant changes in the patient's condition since the History andPhysical, not otherwise documented in primary service progress notes: NoThis contains updated information obtained within 48 hours ofSurgery/Procedure.SIGNATURE: Mahendra Herbert MD PATIENT NAME: Francois ChristiansenDATE: July 28, 2018 : 7:20 AM PAGER/CONTACT #: [phone] [facility] BRIEF OP NOTon 07-28-2018 BRIEF OP NOT HNO ID: [id number] thor: Raymond Paintingervice: Gynecology OncologyAuthor Type: PhysicianType: Brief Op NoteFiled: 07/28/2018 8:20 AMNote Text:BRIEF OP NOTELOG ID: [id number]/Procedure Date: 07/28/2018Incision/Procedure Start Time: 8:01 AMIncision Close/Procedure End Time: 8:06 AMSurgeon(s)/Proceduralist(s) and Station Manager(s):Surgeon(s) and Role: * Deep Plascencia - Nilam * Raymond Swain - FellowProcedure(s): MOISÉS CALEROAnesthesia: GeneralFindings: scant tissue.Estimated Blood Loss: 5 mlsSpecimens: EMCsComplications: NonePre-Op/Pre-Procedure Diagnosis: thickened endometriumPost-Op/Post-Procedur e Diagnosis: Thickened endometrium [R93.8]SIGNATURE: Raymond Swain MD PATIENT NAME: Francois HaneygelDATE: July 28, 2018 : 8:19 AM PAGER/CONTACT #:yesika [facility] HISTORY PHYSICALon 8 HISTORY PHYSICAL HNO ID: [id number] thor: Raymond Paintingervice: Gynecology OncologyAuthor Type: PhysicianType: HANDPFiled: 07/28/2018 6:59 AMNote Text:UPDATED HISTORY AND PHYSICAL EXAMINATIONSERVICE DATE: 07/28/2018SERVICE TIME: 59PHYSICAL EXAM MUST BE COMPLETED ON ADMISSIONThe History and Physical (completed in the past 30 days) has been reviewedand the patient has been examined. The contents accurately reflect thepatient's condition with the following additions or revisions since theHANDP was completed.Examination indicates no changes.This HANDP can be found in the Electronic Medical Record dated 06/17/2019.SIGNATURE: Raymond Swain MD PATIENT NAME: Francois HaneygelDATE: July 28, 2018 : 6:59 AM PAGER: [facility] OPERATIVE NOon 07-28-2018 OPERATIVE NO HNO ID: [id number] thor: Deep Crowleyervice: Gynecology OncologyAuthor Type: PhysicianType: Operative ReportFiled: 07/31/2018 8:30 AMNote Text:OPERATIVE/PROCEDURE REPORTLOG ID: [id number]/PROCEDURE DATE: 07/28/2018INCISION/PROCEDURE START TIME: 8:01 AMINCISION CLOSE/PROCEDURE END TIME: 8:06 AMSURGEON(S)/PROCEDURALIST(S) AND BARREL BRANDER(S):Surgeon(s) and Role: * Deep Plascencia - Primary * Raymond Swain - FellowNo Additional [...] procedure withassistance.?SIGNATURE: Deep Plascencia MD PATIENT NAME: Francois ChristiansenDATE: July 31, 2018 : 8:28 AM PAGER/CONTACT #: [facility] PT EDon 07-28-2018 PT ED HNO ID: [id number] thor: Cheryl (Rn) MOISE Chingervice: NursingAuthor Type: [...] MATERIAL PROVIDED TO PATIENT: Post op dischargeinstructions. [facility] PT ED HNO ID: [id number] thor: Roxy (Rn) MOISE Obandoervice: NursingAuthor Type: Registered NurseType: Patient EducationFiled: 07/28/2018 6:42 AMNote Text:PATIENT EDUCATION TOPIC: PROCEDURE / SURGERY: Pre-op Teaching: SurgicalSafety PrinciplesPATIENT NAME: Francois ChristiansenN: [id number] LOCATION: OR POOL/FV [facility]READS[facility] TO LEARNCOGNITIVE ABILITY: Alert and orientedMOTIVATION TO LEARN: EagerFAMILY SUPPORT: None - Unavailable/disinterestedINSTRUC TION PROVIDED TO: PatientPATIENT LEARNS BEST BY: Verbal InstructionFACTORS AFFECTING LEARNING: NonePHYSICAL LIMITATIONS AFFECTING LEARNING: NoneLEARNING RESPONSEPATIENT/FAMILY RESPONSE: Verbalizes understanding of: [id number] t action to take to follow pre-operative instructionsMETHOD OF INSTRUCTION: Verbal instructionFOLLOW-UP PLAN: Complete - No need for follow-upINSTRUCTIONAL AIDS USED: NASUPPLEMENTAL MATERIAL PROVIDED TO PATIENT: NoneREFERRAL (RECOMMENDATION): NoneElectronically Signed By: Roxy Obando, CAM [facility] SURGICAL PATHOLOGYon 018 SURGICAL PATHOLOGY [facility]: [id number] Physician: DEEP PLASCENCIA MD FINAL DIAGNOSISEndometrium, curettage [...] Totally submitted in onecassette.Gross examination performed at [facility], [address] [place], [place] [id number] 07/28/2018 3:08:17 PMPatient ID #: [id number] of Report: 08/01/2018Date of Procedure: 07/28/2018Date of Receipt: 07/28/2018Submitted by: DEEP PLASCENCIA MDLocation: [facility] HOSDiagnostic interpretation performed at [facility], [address] [place] [address]. Normal [facility] Comment on above: Performed By: #### P ATHS ####[place] [address] NURSING PROGon 07-12-2018 Protein mass conc HNO ID: [id number] thor: Shelby Coyne (Rn) Finesse, MOISEervice: (none)Author Type: Registered NurseType: Nursing Progress NoteFiled: 07/12/2018 11:53 AMNote Text:PACC Nurse Progress NoteHistory AND Physical:PACC Visit Date: 07/07/18Original HANDP Date: N/AED visit Date: N/AOutside HANDP Scanned Date: N/ALabs Within Last 6 Months:CBC: Date 07/07/18BMP/CMP: Date 07/07/18 acceptable labsImaging Within Last 12 Months:N/ACardiac Testing:EKG in last 12 Months: Yes: Date: 07/07/18, Comment: in epicLast Menstrual Period:LMP Date: 2010Posenopausal >1yr: Yes,S/P Hysterectomy: N/ABMI Percentile (PEDS):N/ARisk Assessment:N/AAnesthesia Review:N/ANarrative:Asthma-breas t cancerPre-op Considerations:N/AChart Check:Emory Kilpatrick RNSept2017 11:52 AM Normal [facility] HOSPon 06-22-2018 HOSP Patient:Francois Christiansen SMRN: Height:5' 7.5 (1.715 m)Weight:160 lb [...] 43.0 % 07/07/2018 46.0 36.0Progress Notes ([facility]):TERRI OGLESBY PA-C 07/27/2018 11:24 AM SignedThe following approved medication requests have been transmitted electronically.Signed Prescriptions Disp Refills exemestane (AROMASIN) 25 mg tablet 90 tablet 3 Sig: TAKE 1 TABLET BY MOUTH EVERY DAY SANDY: No Authorizing Provider: TERRI OGLESBY PA-CProgress Notes (CARE NURSE RN [facility]):Karen Leblanc, RN, RN 07/13/2018 11:47 AM SignedPre-op teachingProcedure: DANDCPhysician: MahdiLocation: [facility]: [phone] AND Time: 07/21/18MEDICAL CLEARANCE: No CARDIAC CLEARANCE: [...] Celebrex MotrinAggrenox Clinoril Naprosyn(naproxen)Agrylin NSAIDS Pepto-BismolAleve Ecotrin PersantineAlka-Dauphin Excedrin PlaquenilAnacin Heparin PlavixAscriptin Herbals PletalAspergum Ibuprofen [...] - IV pain medication after surgery, IV BEEF KILLER if ordered by MD,discharged home with a prescription for PO pain medication, pain managementafter surgery, side effects of pain medication (including constipation,dizziness, drowsiness, and medication interactions).DVT PROPHYLAXIS - Early ambulation, SCDs, injectable anticoagulants (heparin,lovenox, etc)RESPIRATORY - Incentive spirometer, coughing/deep breathing exercises,ambulation.RETURN TO WORK - As directed by physician, please send any [facility] papers [facility] financial secretary.SYMPTOMS TO NOTIFY MD - Fever, chills, nausea, vomiting, increased or severepain, heavy vaginal bleeding, foul smelling vaginal drainage, pain or swellingin extremities.URGENT SYMPTOMS - Call 911 or go to ER if any shortness of breath, difficultybreathing, or chest pain.HOW TO CONTACT PHYSICIAN - Physician's office phone number given to patient, ifafter hours patient instructed to call paper coating machine operator and ask for the doctor distribution dispatcher.Patient and family have phone number to call 24 hours/day.Patient Evaluation: Verbalizes understandingPatient and/or family express understanding of upcoming surgery and theoperative process. Questions answered.Follow Up Plan: Follow up as neededSupplemental Material Given:Pre-operative teaching packet provided to the patient:INPATIENT/OUTPATIENT printed instructions; Post-operative instruction sheet,bowel prep instruction sheetFor questions contact: office at [phone] By Karen Leblanc RN [facility] Patient Update (GYNML) JOANA CHRISTIANSEN ([id number]) 1970 FDate Time Provider Department06/22/18 ARUN TEAGUE (STORAGE CONSULTANT) GYNML During your visit today, we recorded the following information about you:Allergies As of Date: 06/22/2018 Noted Allergy ReactionBIAXIN (CLARITHROMYCIN) 01/15/2006PENICILLINS 01/15/2006SULFA (SULFONAMIDE ANTIBIOTICS) 09/25/2013 2 - RashDate Reviewed: 06/17/2018Reviewed by: Deep Plascencia - Fully AssessedOrder(s):SURGICAL REQUEST - ELECTIVE [[id number]] Order #: [id number]: 1Prescriptions as of 06/22/2018 Sig: EXEMESTANE 25 [...] by ARUN TEAGUE CNP on 06/22/18 Normal [facility] Vital Signs Date Time Vital Sign Value Performing Clinician Facility 08-03-2024 11:43-0400 Body height 172.7 cm Gayla Ribeiro MD Work Phone: [facility] 08-03-2024 11:43-0400 Body mass index (BMI) [Ratio] 21.64 kg/m2 Gayla Ribeiro MD Work Phone: [facility] 08-03-2024 11:43-0400 Body temperature 98.49 [degF] Gayla Ribeiro MD Work Phone: [facility] 08-03-2024 11:43-0400 Body weight 64.55 kg Gayla Ribeiro MD Work Phone: [facility] 08-03-2024 11:43-0400 Diastolic blood pressure 80 mm[Hg] Gayla Ribeiro MD Work Phone: [facility] 08-03-2024 11:43-0400 Heart rate 81 /min Gayla Ribeiro MD Work Phone: [facility] 08-03-2024 11:43-0400 Respiratory rate 18 /min Gayla Ribeiro MD Work Phone: [facility] 08-03-2024 11:43-0400 SaO2% (BldA) [Mass fraction] 99 % Gayla Ribeiro MD Work Phone: [facility] 08-03-2024 11:43-0400 Systolic blood pressure 117 mm[Hg] Gayla Ribeiro MD Work Phone: [facility] 07-26-2024 13:31-0400 Body mass index (BMI) [Ratio] 21.86 kg/m2 GABBY Harden MD Work Phone: [facility] 07-26-2024 13:31-0400 Body temperature 97.11 [degF] GABBY Harden MD Work Phone: [facility] 07-26-2024 13:31-0400 Body weight 65.2 kg GABBY Harden MD Work Phone: [facility] 07-26-2024 13:31-0400 Diastolic blood pressure 79 mm[Hg] GABBY Harden MD Work Phone: [facility] 07-26-2024 13:31-0400 Heart rate 78 /min GABBY Harden MD Work Phone: [facility] 07-26-2024 13:31-0400 SaO2% (BldA) [Mass fraction] 95 % NA Fina VALLECILLO Work Phone: [facility] 07-26-2024 13:31-0400 Systolic blood pressure 119 mm[Hg] NA Fina VALLECILLO Work Phone: [facility] 12-10-2023 08:00-0500 Body height 172.7 cm Cheryl Garcia MD Work Phone: [facility] 12-10-2023 08:00-0500 Body temperature 97.5 [degF] Cheryl Garcia MD Work Phone: [facility] 12-10-2023 08:00-0500 Body weight 66.5 kg Cheryl Garcia MD Work Phone: [facility] 12-10-2023 08:00-0500 Diastolic blood pressure 68 mm[Hg] Cheryl Garcia MD Work Phone: [facility] 12-10-2023 08:00-0500 Heart rate 79 /min Cheryl Garcia MD Work Phone: [facility] 12-10-2023 08:00-0500 Systolic blood pressure 119 mm[Hg] Cheryl Garcia MD Work Phone: [facility] 09-27-2023 14:00-0500 Body height 172.72 cm Joon Miramontes Other [employer] Other 09-27-2023 14:00-0500 Body mass index (BMI) [Ratio] 21.77 kg/m2 Joon Ball Other [employer] Other 09-27-2023 14:00-0500 Body weight 64.96 kg Joon Ball Other [employer] Other 09-27-2023 14:00-0500 Diastolic blood pressure 78 mm[Hg] Joon Ball Other [employer] Other 09-27-2023 14:00-0500 Respiratory rate 12 /min Joon Ball Other [facility] [employer] Other 09-27-2023 14:00-0500 Systolic blood pressure 117 mm[Hg] Joon Ball Other [facility] [employer] Other 08-26-2023 11:27-0500 Body temperature 96.69 [degF] GABBY Harden MD Work Phone: [facility] 08-26-2023 11:27-0500 Body weight 66.95 kg GABBY Harden MD Work Phone: [facility] 08-26-2023 11:27-0500 Diastolic blood pressure 73 mm[Hg] GABBY Harden MD Work Phone: [facility] 08-26-2023 11:27-0500 Heart rate 75 /min GABBY Harden MD Work Phone: [facility] 08-26-2023 11:27-0500 Respiratory rate 18 /min GABBY Harden MD Work Phone: [facility] 08-26-2023 11:27-0500 SaO2% (BldA) [Mass fraction] 99 % GABBY Harden MD Work Phone: [facility] 08-26-2023 11:27-0500 Systolic blood pressure 120 mm[Hg] GABBY Harden MD Work Phone: [facility] 08-26-2022 09:40-0500 Body temperature 97.11 [degF] GABBY Harden MD Work Phone: [facility] 08-26-2022 09:40-0500 Body weight 64.41 kg GABBY Harden MD Work Phone: [facility] 08-26-2022 09:40-0500 Diastolic blood pressure 78 mm[Hg] GABBY Harden MD Work Phone: [facility] 08-26-2022 09:40-0500 Heart rate 59 /min GABBY Harden MD Work Phone: [facility] 08-26-2022 09:40-0500 Respiratory rate 16 /min GABBY Harden MD Work Phone: [facility] 08-26-2022 09:40-0500 SaO2% (BldA) [Mass fraction] 96 % GABBY Harden MD Work Phone: [facility] 08-26-2022 09:40-0500 Systolic blood pressure 124 mm[Hg] GABBY Harden MD Work Phone: [facility] 07-22-2022 12:53-0400 Body height 171.5 cm Gayla Ribeiro MD Work Phone: [facility] 07-22-2022 12:53-0400 Body temperature 97.2 [degF] Gayla Ribeiro MD Work Phone: [facility] 07-22-2022 12:53-0400 Body weight 65.14 kg Gayla Ribeiro MD Work Phone: [facility] 07-22-2022 12:53-0400 Diastolic blood pressure 87 mm[Hg] Gayla Ribeiro MD Work Phone: [facility] 07-22-2022 12:53-0400 Heart rate 75 /min Gayla Ribeiro MD Work Phone: [facility] 07-22-2022 12:53-0400 Respiratory rate 16 /min Gayla Ribeiro MD Work Phone: [facility] 07-22-2022 12:53-0400 SaO2% (BldA) [Mass fraction] 97 % Gayla Ribeiro MD Work Phone: [facility] 07-22-2022 12:53-0400 Systolic blood pressure 117 mm[Hg] Gayla Ribeiro MD Work Phone: [facility] Encounters Encounter Date Encounter Type Care Provider Facility Start: 08-22-2024 End: 08-22-2024 ambulatory Cheryl Garcia MD [facility] Phone[facility] Comment on above: Osteoporosis, post m enopausal (Primary Dx); Encounter for long-term (current) use of medications; History of breast cancer Start: 08-22-2024 End: 08-22-2024 Telemedicine consultation with patient Cheryl Garcia MD Work Phone: [facility] Start: 08-09-2024 End: 08-09-2024 Telephone encounter Cheryl Garcia MD Work Phone: Rheumatology Comment on above: Received Outside [facility] ([facility] of 08/09/2024) Start: 08-08-2024 End: 08-08-2024 ambulatory Cheryl Garcia MD Work Phone: Rheumatology Start: 08-08-2024 End: 08-08-2024 E-mail encounter from caregiver Cheryl Garcia MD Work Phone: Rheumatology Start: 08-08-2024 End: 08-08-2024 Telephone encounter Cheryl Garcia MD Work Phone: Rheumatology Comment on above: Appointment Start: 08-03-2024 End: 08-03-2024 ambulatory GAYLA RIBEIRO Facility:[facility] Start: 08-03-2024 End: 08-03-2024 Patient encounter procedure Gayla Riebiro MD Work Phone: Hematology Comment on above: History of breast ca ncer (Primary Dx) Start: 07-26-2024 End: 07-26-2024 ambulatory Ariela HARDEN Facility:[facility] Start: 07-26-2024 End: 07-26-2024 Patient encounter procedure Ariela Harden MD Work Phone: Radiation Oncology Comment on above: History of breast ca ncer (Primary Dx) Start: 04-14-2024 End: 04-14-2024 ambulatory [facility] Work Phone: Start: 04-14-2024 End: 04-14-2024 Patient encounter procedure [facility] Physician [facility] Work Phone: Start: 03-03-2024 End: 03-03-2024 ambulatory [facility] Work Phone: Start: 03-03-2024 End: 03-03-2024 Patient encounter procedure [facility] Work Phone: Start: 12-17-2023 End: 12-17-2023 Patient encounter procedure [facility] Work Phone: Start: 12-13-2023 Telephone encounter Cheryl Garcia MD Work Phone: Rheumatology Comment on above: Results Start: 12-10-2023 End: 12-10-2023 ambulatory CHERYL GARCIA Facility:[facility] Start: 12-10-2023 End: 12-10-2023 Patient encounter procedure Cheryl Garcia MD Work Phone: [facility] Comment on above: Osteopenia of multip le sites (Primary Dx); Encounter for long-term (current) use of medications; History of breast cancer Start: 09-27-2023 End: 09-27-2023 ambulatory Joon Miramontes Other [employer] Other Start: 09-27-2023 Encounter for genera l adult medical examination without abnormal findings J[facility] Start: 09-27-2023 Periodic preventive med est patient 40-64yrs Joon Miramontes [facility] Start: 08-26-2023 End: 08-26-2023 ambulatory Ariela HARDEN Facility:[facility] Start: 08-26-2023 End: 08-26-2023 Patient encounter procedure Ariela Harden MD Work Phone: Radiation Oncology Comment on above: History of breast ca ncer (Primary Dx) Start: 08-26-2022 End: 08-26-2022 Patient encounter procedure Ariela Harden MD Work Phone: [facility]cology Comment on above: Radiotherapy follow- up examination (Primary Dx) Start: 07-22-2022 End: 07-22-2022 ambulatory Gayla Ribeiro MD Work Phone: Hematology/Oncology Comment on above: History of breast ca ncer (Primary Dx); Osteopenia of lumbar spine Start: 07-22-2022 End: 07-22-2022 Patient encounter procedure Gayla Ribeiro MD Work Phone: [facility] Start: 07-17-2022 Encounter for genera l adult medical examination without abnormal findings DR JOON MIRAMONTES [facility] Start: 07-17-2022 End: 07-18-[address] DOCTOR ORTIZ Facility:[facility] Start: 07-15-2022 End: 07-16-[address] JOON MIRAMONTES Facility:[facility] Start: 07-15-2022 End: 07-16-2022 Encounter for general adult medical examination without abnormal findings DR JOON MIRAMONTES Facility:[facility] Start: 02-25-2022 End: 02-25-2022 ambulatory HÉCTOR ZEPEDA Facility:[facility] Start: 07-28-2018 End: 07-28-2018 Patient encounter [facility] Plan of Treatment Date Care Activity Detail Author Start: 07-21-2026 Diabetes Screening Diabetes Screenin g [facility] Start: 08-23-2025 End: 08-23-2025 ambulatory 08/23/2025 11:40 AM [facility] [address] [address] [place] [address] [place] [address] 1 YEAR OSTEOPOROSIS F/U PER DR. GARCIA [facility] Comment on above: 1 YEAR OSTEOPOROSIS F/U PER DR. GARCIA Start: 08-09-2025 End: 08-09-2025 Follow-up encounter 08/09/2025 12:00 PM EDT Visit (SP) Office Hematology [address] [place], [place] [id number] Gayla Ribeiro MD [address] [place] [id number] 1 year follow up Hematology Comment on above: 1 year follow up Start: 07-31-2025 End: 07-31-2025 Patient encounter procedure 07/31/2025 1:15 PM EDT Office Visit Radiation Oncology [address] [place] [address] Ariela Harden MD [address] [place] [address] 1 yr rv Radiation Oncology Comment on above: 1 yr rv Start: 07-22-2025 DIABETES SCREEN DIABETES SCREEN [facility] Start: 08-22-2024 End: 11-21-2024 25-hydroxyvitamin D3 [Mass/volume] in Serum or Plasma VITAMIN D 25 HYDROXY Lab Routine Osteoporosis, post menopausal Encounter for long-term (current) use of medications Expected: 08/22/2024, Expires: 11/21/2024 [facility] Work Phone: Comment on above: Expected: 08/22/2024 , Expires: 11/21/2024 Start: 08-22-2024 End: 11-21-2024 Calcium [Mass/volume] in Serum or Plasma CALCIUM, TOTAL Lab Routine Osteoporosis, post menopausal Encounter for long-term (current) use of medications Expected: 08/22/2024, Expires: 11/21/2024 [facility] Comment on above: Expected: 08/22/2024 , Expires: 11/21/2024 Start: 08-22-2024 End: 11-21-2024 Collagen crosslinked C-telopeptide [Mass/volume] in Serum or Plasma C TELOPEPTIDE, BETA Lab Routine Osteoporosis, post menopausal Encounter for long-term (current) use of medications Expected: 08/22/2024, Expires: 11/21/2024 [facility] Comment on above: Expected: 08/22/2024 , Expires: 11/21/2024 Start: 08-22-2024 End: 11-21-2024 CREATININE BLD CREATININE BLD Lab Routine Osteoporosis, post menopausal Encounter for long-term (current) use of medications Expected: 08/22/2024, Expires: 11/21/2024 [facility] Comment on above: Expected: 08/22/2024 , Expires: 11/21/2024 Start: 08-22-2024 End: 08-22-2024 ambulatory 08/22/2024 10:00 AM EST [facility] [id number] File, [place] [address] [place] [address] f/u [facility] Comment on above: f/u Start: 08-10-2024 End: 08-10-2024 ambulatory 08/10/2024 11:00 AM EDT [facility] [address] [address] File, [place] [address] [place] [address] 8mth fu Osteopenia per [facility] Comment on above: 8mth fu Osteopenia p er File Start: 06-18-2024 Covid-19 Vaccine ( season) Covid-19 Vaccine ( season) [facility] Start: 06-18-2024 Influenza vaccination Influenza Vacc ine (#1) [facility] Start: 12-10-2023 End: 03-10-2024 25-hydroxyvitamin D3 [Mass/volume] in Serum or Plasma [facility] Work Phone: Comment on above: Expected: 12/10/2023 , Expires: 03/10/2024 Start: 12-10-2023 End: 03-10-2024 Calcium [Mass/volume] in Serum or Plasma [facility] Work Phone: Comment on above: Expected: 12/10/2023 , Expires: 03/10/2024 Start: 12-10-2023 End: 03-10-2024 Collagen crosslinked C-telopeptide [Mass/volume] in Serum or Plasma [facility] Work Phone: Comment on above: Expected: 12/10/2023 , Expires: 03/10/2024 Start: 12-10-2023 End: 03-10-2024 CREATININE BLD [facility] Work Phone: Comment on above: Expected: 12/10/2023 , Expires: 03/10/2024 Start: 12-10-2023 End: 03-10-2024 Parathyrin.intact [Mass/volume] in Serum or Plasma [facility] Work Phone: Comment on above: Expected: 12/10/2023 , Expires: 03/10/2024 Start: 10-18-2023 Depression Assessment Depression Ass essment [facility] Start: 07-22-2023 End: 09-21-2023 CBC W Auto Differential panel - Blood CBC + DIFF Lab Routine History of breast cancer Expected: 07/22/2023 (Approximate), Expires: 09/21/2023 [facility] Work Phone: Comment on above: Expected: 07/22/2023 (Approximate), Expires: 09/21/2023 Start: 07-22-2023 End: 09-21-2023 Comprehensive metabolic 2000 panel - Serum or Plasma COMP METABOLIC PANEL Lab Routine History of breast cancer Expected: 07/22/2023 (Approximate), Expires: 09/21/2023 [facility] Work Phone: Comment on above: Expected: 07/22/2023 (Approximate), Expires: 09/21/2023 Start: 06-18-2023 Covid-19 Vaccine ( season) Covid-19 Vaccine ( season) [facility] Start: 06-18-2023 Influenza vaccination Influenza Vacc ine (#1) [facility] Start: 10-18-2022 Depression Assessment Depression Ass essment [facility] Start: 06-18-2022 Influenza vaccination INFLUENZA (#1) [facility] Start: 11-19-2021 COVID-19 VACCINE (3 - Booster for Pfizer series) COVID-19 VACCINE (3 - Booster for Pfizer series) [facility] Start: 10-18-2021 DEPRESSION ASSESSMENT DEPRESSION ASS ESSMENT [facility] Start: 2018 SHINGRIX VACCINE (1 of 2) SHINGRIX VACCINE (1 of 2) [facility] Start: 2013 COLOGUARD (FIT-DNA) COLOGUARD (FIT-D NA) [facility] Start: 2013 Colonoscopy COLONOSCOPY [facility] Start: 2013 COLORECTAL CANCER SCREENING COLORECTAL CANCER SCREENING [facility] Start: [address] COLONOGRAPHY [facility] Start: 2013 FECAL OCCULT BLOOD FECAL OCCULT BLOO D [facility] Start: 2013 Lipid 1996 panel - S cierra or Plasma Lipid Screening [facility] Start: 2013 Lipid panel Lipid Screening [facility] Start: 2013 LIPID SCREEN LIPID SCREEN [facility] Start: 2013 Screening for malign ant neoplasm of colon [facility] Start: 2013 SIGMOIDOSCOPY SIGMOIDOSCOPY [facility] Start: 2008 Mammography [facility] Start: 2008 Screening for malign ant neoplasm of breast Mammogram Screening [facility] Start: 1998 HPV TESTING HPV TESTING [facility] Start: 1998 Screening for malign ant neoplasm of cervix HPV Testing [facility] Start: 1989 PAP TESTING PAP TESTING [facility] Start: 1989 Screening for malign ant neoplasm of cervix [facility] Start: 1987 Hepatitis B Vaccine (1 of 3 - 19+ 3-dose series) Hepatitis B Vaccine (1 of 3 - 19+ 3-dose series) [facility] Start: 1987 Urine microalbumin profile [facility] Start: 1986 Anxiety Screening Anxiety Screening [facility] Start: 1986 Depression Screening Depression Scre ening [facility] Start: 1986 HEPATITIS C SCREENING HEPATITIS C [facility] Start: 1986 Hepatitis C screening Hepatitis C [facility] Start: 1986 HIV SCREENING HIV SCREENING [facility] Start: 1986 HIV screening HIV Screening [facility] Start: 1970 HEPATITIS B (1 of 3 - 3-dose series) HEPATITIS B (1 of 3 - 3-dose series) [facility] Start: 1970 Hepatitis B Vaccine (1 of 3 - 3-dose series) Hepatitis B Vaccine (1 of 3 - 3-dose series) [facility] Immunizations Immunization Date Immunization Notes Care Provider Vincent luevano 11-30-2022 influenza virus vacc ine, unspecified formulation GABBY Harden MD Work Phone: [facility] 09-24-2021 COVID-19 Vaccine Pfi zer - Documentation Purposes Only Joon Miramontes Other [facility] 09-03-2021 COVID-19 Vaccine Pfi zer - Documentation Purposes Only Joon Terry Other [facility] 08-18-2021 influenza, injectabl e, quadrivalent, preservative free Gayla Ribeiro MD Work Phone: [facility] 08-18-2021 influenza virus vacc ine, unspecified formulation GABBY Harden MD Work Phone: [facility] 08-06-2020 influenza, injectabl e, quadrivalent, preservative free Gayla Ribeiro MD Work Phone: [facility] Payers Date Payer Category Payer [facility] [id number] 2019 Unknown [id number] 2019 Unknown [id number] 1970 Unknown [id number] 1970 Unknown [id number] 1970 Unknown [id number] Social History Date Type Detail Facility Start: 08-10-2012 Tobacco smoking stat us FLIS Never smoked tobacco [facility] Start: 08-10-2012 Tobacco use and exposure Smokeless tobacco non-user [facility] Start: 07-22-2022 End: 08-22-2024 Alcohol intake Current drinker of alcohol (finding) [facility] Start: 1970 Sex Assigned At Not on file C [facility] Start: 07-12-2022 End: 08-26-2022 Exposure to SARS-CoV-2 (event) Not sure [facility] Start: 07-21-2023 End: 07-26-2024 History of Social function [facility] Start: 07-21-2023 End: 07-26-2024 Tobacco use panel [facility] Adult Depression Screening Assessment 0 [facility] Start: 1970 Sex Assigned At Female F [facility] Clinical Notes 07-22-2016 to 08-22-2024 File, Cheryl [place] MD - 08/22/2024 10:00 AM ESTTelephone Encounter - File, Cheryl [place] MD - 08/09/2024 5:30 PM EDTTelephone Encounter - File, Cheryl [place] MD - 08/09/2024 5:30 PM EDT Note Date & Type Note Facility 08-22-2024 History of Presen t illness Narrative Images from the original note were not included. f/u: osteopenia This Team Access Model visit is a virtual visit using zoom. It required patient-provider interaction for the medical decision making as documented below. Patient gave consent to use this model of care. I have communicated my name and active licensure. The patient's identity and physical location were verified at the time of this visit. 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 INTERVAL HISTORY bmd result discussed with her no fracture since last visit No invasive dental work in the last three months and none planned for the future. is going to have a crown placed. TREATMENTS: Osteoporosis - Antiresorptive Treatments Treatment Start [...] the fall, landing on her outstreched hands) possible sacral fracture in 2010 Family History of osteoporosis (Comment: grandmother) No [...] intake: 1-3 c/day Exercise routine: (Comment: walks) Review of Systems CONSTITUTION: Negative for: Fever and Recent weight change HEENT: Negative for: Nosebleeds, Mouth sores, Trouble swallowing and Dry mouth RESPIRATORY: Positive for: Cough Negative for: Shortness of breath, Pain with breathing and Coughing up blood GASTROINTESTINAL: Negative for: Melena, Diarrhea, Heartburn and Abdominal pain MUSCULOSKELETAL: Negative for: Arthralgias, Myalgias, Muscle weakness, Joint swelling and Morning Joint Stiffness NEUROLOGICAL: Negative for: Headaches, Numbness and Memory loss SKIN: Negative for: Rash, Skin changes, Hair loss and Nail changes EYES: Positive for: Eye dryness Negative for: Eye pain, Eye redness and visual disturbance CARDIOVASCULAR: Negative for: Chest pain and Leg swelling GENITOURINARY: Negative for: Dysuria and Hematuria HEMATOLOGIC/LYMPHATIC: Negative for: Swollen glands Osteoporosis History Daily Calcium diet: about 600 mg Daily Calcium supplementation: about 800 mg daily in divided doses citracal Daily Vitamin D: 1000 IU Current Multivitamin:yes- recently started OB History 6 Para 5 Term AB Living 5 SAB IAB Ectopic Multiple Live Births Obstetric Comments Age of menarche 13 Afb 25 Lmp 08/29/2011 PAST MEDICAL HISTORY Diagnosis Date Breast cancer (HCC) 08/2011 left breast Unspecified asthma, with status asthmaticus Vaginal bleeding has h/o node positive ER/[place] positive HER-2/clari positive breast cancer diagnosed 2010 [...] CURETTAGE DX&/THER NONOBSTETRIC 2016 Dilation & curettage DILATION & CURETTAGE DX&/THER NONOBSTETRIC 2015 Dilation & curettage MASTECTOMY, SIMPLE, COMPLETE 02/12/2012 left breast with SLND MASTECTOMY, SIMPLE, COMPLETE 02/12/2012 prophylactic right breast SEPTOPLASTY/SUBMUCOUS RESECJ W/WO CARTILAGE GRF FAMILY HISTORY Problem Relation Age of Onset COPD Maternal Grandfather Cancer Paternal Grandmother Asthma Other Allergies: Biaxin [Clarithromycin], Penicillins, and Sulfa (Sulfonamide Antibiotics) Medications: Present: Current Outpatient Medications Medication Sig CALCIUM ORAL Take by mouth. fluticasone propion/salmeterol (ADVAIR DISKUS INHALATION) Inhale as instructed. fexofenadine HCl (AYAH ALLERGY ORAL) Take by mouth. Ascorbic Acid (VITAMIN C) 250 mg chew Take 500 mg by mouth once daily. PROAIR HFA 90 mcg/actuation inhaler Inhale 1 Puff as instructed every 4 hours as needed. No current facility-administered medications for this visit. Physical Exam: LMP 09/18/2011 Last Ht 08/03/24 : 172.7 cm (5' 8 ) 12/10/23 : 172.7 cm (5' 8 ) 07/21/23 : 171.5 cm (5' 7.52 ) GEN: NAD, well groomed RELEVANT PREVIOUS INVESTIGATIONS: Calcium Date Value Ref Range Status 06/06/2021 9.9 8.5 - 10.2 mg/dL Final Calcium, Total Date Value Ref Range Status 12/10/2023 10.1 8.5 - 10.2 mg/dL Final 07/21/2023 9.7 8.5 - 10.2 mg/dL Final 07/22/2022 9.7 8.5 - 10.2 mg/dL Final Alkaline Phosphatase Date Value Ref Range Status 07/21/2023 87 34 - 123 U/L Final 07/22/2022 89 34 - 123 U/L Final 06/06/2021 94 34 - 123 U/L Final 09/18/2020 83 34 - 123 U/L Final PTH, Intact Date Value Ref Range Status 12/10/2023 30 15 - 65 pg/mL Final Vitamin D 25 Hydroxy Date Value Ref Range Status 12/10/2023 49.4 31.0 - 80.0 ng/mL Final Comment: Classification of 25 OH Vitamin D status: Deficiency/Insufficiency: < or = 30 ng/ml. Sufficiency/Optimal Levels: 31-80 ng/mL Toxicity: > 100 ng/mL. Test performed by chemiluminescent immunoassay. 07/22/2022 61.3 31.0 - 80.0 ng/mL Final [...] immunoassay. Creatinine Date Value Ref Range Status 12/10/2023 0.80 0.58 - 0.96 mg/dL Final 07/21/2023 0.83 0.58 - 0.96 mg/dL Final 07/22/2022 0.74 0.58 - 0.96 mg/dL Final 06/06/2021 0.82 0.58 - 0.96 mg/dL Final FSH Date [...] 3243 pg/mL Second trimester : 1561 TO 65201 pg/mL Third trimester : 8285 to >24724 pg/mL Post-menopausal Estradiol reference range: < 41 pg/mL Reference: 1. Estradiol - E2 (Estradiol III) [package insert V 3.0 American]. [facility], [place], [place], March 2016. 05/11/2016 <5 pg/mL Final [...] 01/15/2006 139 78 - 391 mg/dL Final Latest Ref Rng & Units 12/10/2023 C Telopeptide, Beta C Telopeptide, Beta Cross Linked 183 - 1,060 pg/mL 393 I reviewed and discussed test results with the patient. 09/23/23 tsh 3.052 calcium 8.4 creatinine 0.77 glucose 92 alk phos 86 Latest Ref Rng 12/10/2023 Creatinine 0.58 - 0.96 mg/dL 0.80 eGFR >=60 mL/min/1.73m 87 Calcium 8.5 - 10.2 mg/dL 10.1 Vitamin D 25 Hydroxy 31.0 - 80.0 ng/mL 49.4 C Telopeptide, Beta Cross Linked 183 - 1,060 pg/mL 393 PTH, Intact 15 - 65 pg/mL 30 BONE DENSITY RESULTS: 07/17/22 [facility] L1-L4 0.916 T -2.2 left fem neck 0.835 T -1.5 left total hip 0.788 T -1.7 there was a decline in mean dual hip compared to 2018 BMD 07/2024 I reviewed images. lowest T score is actually -2.5 in the spine (troch should not be used for diagnosis) . there was significant decline in total mean femur from 2021 to 2023. 08/09/24 4:04 PM Note Received Bone Density of 08/09/2024 from [facility]. Scanned into chart for review. View External Imaging - Bone Density [ID [id number]] IMPRESSION: Osteoporosis- lowest T score -2.5 with history of wrist fractures in 2018 h/o breast cancer and was treated with chemo and radiation and completed aromasin in 2021 PLAN: Treatment is recommended. Options were discussed. will start reclast . she would like to get this in [place] if possible. RBA discussed. Dental precautions discussed. Calcium 1200 to 1500 mg daily recommended- if cannot achieve this through diet, then calcium citrate supplement recommended in divided doses Continue vitamin D Will check: [facility] on 08/22/24 VITAMIN D 25 HYDROXY C TELOPEPTIDE, BETA CALCIUM, TOTAL CREATININE BLD Weight bearing exercise as tolerated recommended Fall precautions discussed Repeat bmd on same machine as prior around 07/2026 recommended f/u 1 year - virtual Continue f/u with PCP for routine health maintenance rba of meds discussed. Cheryl Garcia MD documented in this encounter [facility] 08-22-2024 Note HNO ID: [id number] Author: CHERYL GARCIA MD Service: ? Author Type: Physician Type: Progress Notes Filed: 08/22/2024 11:00 Note Text: f/u: osteopenia This Team Access Model visit is a virtual visit using zoom. It required patient-provider interaction for the medical decision making as documented below. Patient gave consent to use this model of care. I have communicated my name and active licensure. The patient's identity and physical location were verified at the time of this visit. 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 INTERVAL HISTORY bmd result discussed with her no fracture since last visit No invasive dental work in the last three months and none planned for the future. is going to have a crown placed. TREATMENTS: Osteoporosis - Antiresorptive Treatments Treatment Start [...] the fall, landing on her outstreched hands) possible sacral fracture in 2010 Family History of osteoporosis (Comment: grandmother) No [...] intake: 1-3 c/day Exercise routine: (Comment: walks) Review of Systems CONSTITUTION: Negative for: Fever and Recent weight change HEENT: Negative for: Nosebleeds, Mouth sores, Trouble swallowing and Dry mouth RESPIRATORY: Positive for: Cough Negative for: Shortness of breath, Pain with breathing and Coughing up blood GASTROINTESTINAL: Negative for: Melena, Diarrhea, Heartburn and Abdominal pain MUSCULOSKELETAL: Negative for: Arthralgias, Myalgias, Muscle weakness, Joint swelling and Morning Joint Stiffness NEUROLOGICAL: Negative for: Headaches, Numbness and Memory loss SKIN: Negative for: Rash, Skin changes, Hair loss and Nail changes EYES: Positive for: Eye dryness Negative for: Eye pain, Eye redness and visual disturbance CARDIOVASCULAR: Negative for: Chest pain and Leg swelling GENITOURINARY: Negative for: Dysuria and Hematuria HEMATOLOGIC/LYMPHATIC: Negative for: Swollen glands Osteoporosis History Daily Calcium diet: about 600 mg Daily Calcium supplementation: about 800 mg daily in divided doses citracal Daily Vitamin D: 1000 IU Current Multivitamin:yes- recently started OB History 6 Para 5 Term AB Living 5 SAB IAB Ectopic Multiple Live Births Obstetric Comments Age of menarche 13 Afb 25 Lmp 08/29/2011 PAST MEDICAL HISTORY Diagnosis Date Breast cancer (HCC) 08/2011 left breast Unspecified asthma, with status asthmaticus Vaginal bleeding has h/o node positive ER/NJ positive HER-2/clari positive breast cancer diagnosed 2010 [...] right breast SEPTOPLASTY/SUBMUCOUS RESECJ W/WO CARTILAGE GRF FAMILY HISTORY Problem Relation Age of Onset COPD Maternal Grandfather Cancer Paternal Grandmother Asthma Other Allergies: Biaxin [Clarithromycin], Penicillins, and Sulfa (Sulfonamide Antibiotics) Medications: Present: Current Outpatient Medications Medication Sig CALCIUM ORAL Take by mouth. fluticasone propion/salmeterol (ADVAIR DISKUS INHALAT (more content not included)... [facility] 08-09-2024 Telephone encounter Note I reviewed images. lowest T score is actually -2.5 in the spine (troch should not be used for diagnosis) . there was significant decline in total mean femur from 2021 to 2023. I will discuss results with her at her upcoming visit. [facility] Work Phone: 08-09-2024 Miscellaneous Notes I reviewed images. lowest T score is actually -2.5 in the spine (troch should not be used for diagnosis) . there was significant decline in total mean femur from 2021 to 2023. I will discuss results with her at her upcoming visit. Received Bone Density of 08/09/2024 from [facility]. Scanned into chart for review. View External Imaging - Bone Density [ID [id number]] documented in this encounter [facility] 08-09-2024 Telephone encounter Note Received Bone Density of 08/09/2024 from [facility]. Scanned into chart for review. View External Imaging - Bone Density [ID [id number]] [facility] 08-08-2024 Telephone encounter Note opened in error [facility] Work Phone: 08-08-2024 Miscellaneous Notes opened in error documented in this encounter [facility] 08-08-2024 Telephone encounter Note she is seeing me in follow up this . the plan was for her to repeat her bone density locally prior to the visit. can you ask her if she completed this and can you request results/images if she did it. thx [facility] Work Phone: 08-08-2024 Miscellaneous Notes she is seeing me in follow up this . the plan was for her to repeat her bone density locally prior to the visit. can you ask her if she completed this and can you request results/images if she did it. thx documented in this encounter [facility] 08-03-2024 Instructions Svetlana Payan LPN - 08/03/2024 11:59 AM EDT Schedule with medical genetics Follow up with Dr. Ribeiro in one year documented in this encounter [facility] 08-03-2024 Note HNO ID: [id number] Author: GAYLA RIBEIRO MD Service: ? Author Type: Physician Type: Progress Notes Filed: 08/03/2024 12:01 Note Text: PATIENT NAME: Francois Christiansen CLINIC NO.: [id number] ATTENDING PHYSICIAN: Gayla Ribeiro MD DATE OF SERVICE: August 03, 2024 Some of the elements of this note have been copied from my previous progress note dated 07/21/2023. All the information has been reviewed carefully. Dear Dr. Joon Miramontes MD here is an update on a follow up visit on female Francois Christiansen at the clinic August 03, 2024 Diagnosis: 1. Initial diagnosis of biopsy-proven left breast cancer, infiltrating ductal carcinoma, grade 3, HER-2/clari positive, ER 95% positive, NJ 80% positive August 2011. Treatment History: 1. Neoadjuvant chemotherapy with Taxotere, carboplatin plus trastuzumab and completed 1 year of adjuvant trastuzumab and August 2012. 2. Bilateral mastectomy and left sided axillary dissection with residual tumor, 0.1 cm and 19 lymph nodes negative. Surgery date was 01/2012 3. Left breast radiation therapy completed April 2012. 4. Tamoxifen April 2012 to April 2017 at that point was switched to Aromasin per Dr. Simons. Aromasin 2016-11/2021 5. Abnormal uterine bleeding followed by Dr. Plascencia 6. Genetic testing in 2010 negative for BRCA 1 and 2 per notes. HPI: Francois Christiansen is a 54 year old year old female here for follow up. Doing very well and denies any new complaints. PAST MEDICAL HISTORY Diagnosis Date Breast cancer (HCC) 08/2011 left breast Unspecified asthma, with status asthmaticus Vaginal bleeding Social History Tobacco Use Smoking status: Never Smokeless tobacco: Never Vaping Use Vaping status: Never Used Substance Use Topics Alcohol use: Yes Comment: [...] of hands/feet. No weakness. PHYSICAL EXAMINATION: BP 117/80 Pulse 81 Temp (Src) 98.5 (Temporal Artery) Resp 18 Ht 5' 8 (1.73m) Wt 142 lb 4.9 oz (64.6kg) SpO2 99% LMP 09/18/2011 BMI 21.64 kg/(m2). Wt 63.8 kg (140 lb 9.6 oz) [...] masses bilaterally. LABS: Glucose (mg/dL) Date Value 07/21/2023 99 06/06/2021 77 Potassium (mmol/L) Date Value 07/21/2023 4.0 06/06/2021 4.4 Sodium (mmol/L) Date Value 07/21/2023 138 06/06/2021 141 Chloride (mmol/L) Date Value 07/21/2023 100 06/06/2021 104 CO2 (mmol/L) Date Value 07/21/2023 31 06/06/2021 30 Creatinine (mg/dL) Date Value 12/10/2023 0.80 06/06/2021 0.82 BUN (mg/dL) Date Value 07/21/2023 13 06/06/2021 17 Anion Gap (mmol/L) Date Value 07/21/2023 7 06/06/2021 7 Calcium (mg/dL) Date Value 06/06/2021 9.9 Calcium, Total (mg/dL) Date Value 12/10/2023 10.1 Protein, Total (g/dL) Date Value 07/21/2023 6.9 06/06/2021 7.4 Albumin (g/dL) Date Value 07/21/2023 4.9 06/06/2021 5.0 Bilirubin, Total (mg/dL) Date Value 07/21/2023 0.4 06/06/2021 0.5 Alkaline Phosphat (more content not included)... [facility] 08-03-2024 History of Presen t illness Narrative Images from the original note were not included. PATIENT NAME: Francois Christiansen [facility] NO.: [id number] ATTENDING PHYSICIAN: Gayla Ribeiro MD DATE OF SERVICE: August 03, 2024 Some of the elements of this note have been copied from my previous progress note dated 07/21/2023. All the information has been reviewed carefully. Dear Dr. Joon Miramontes MD here is an update on a follow up visit on female Francois Christiansen at the clinic August 03, 2024 Diagnosis: 1. Initial diagnosis of biopsy-proven left breast cancer, infiltrating ductal carcinoma, grade 3, HER-2/clari positive, ER 95% positive, NJ 80% positive August 2011. Treatment History: 1. Neoadjuvant chemotherapy with Taxotere, carboplatin plus trastuzumab and completed 1 year of adjuvant trastuzumab and August 2012. 2. Bilateral mastectomy and left sided axillary dissection with residual tumor, 0.1 cm and 19 lymph nodes negative. Surgery date was 01/2012 3. Left breast radiation therapy completed April 2012. 4. Tamoxifen April 2012 to April 2017 at that point was switched to Aromasin per Dr. Simons. Aromasin 2016-11/2021 5. Abnormal uterine bleeding followed by Dr. Plascencia 6. Genetic testing in 2010 negative for BRCA 1 and 2 per notes. HPI: Francois Christiansen is a 54 year old year old female here for follow up. Doing very well and denies any new complaints. PAST MEDICAL HISTORY Diagnosis Date Breast cancer (HCC) 08/2011 left breast Unspecified asthma, with status asthmaticus Vaginal bleeding Social History Tobacco Use Smoking status: Never Smokeless tobacco: Never Vaping Use Vaping status: Never Used Substance Use Topics Alcohol use: Yes Comment: [...] of hands/feet. No weakness. PHYSICAL EXAMINATION: BP 117/80 Pulse 81 Temp (Src) 98.5 (Temporal Artery) Resp 18 Ht 5' 8 (1.73m) Wt 142 lb 4.9 oz (64.6kg) SpO2 99% LMP 09/18/2011 BMI 21.64 kg/(m^2). Wt 63.8 kg (140 lb 9.6 [...] masses bilaterally. LABS: Glucose (mg/dL) Date Value 07/21/2023 99 06/06/2021 77 Potassium (mmol/L) Date Value 07/21/2023 4.0 06/06/2021 4.4 Sodium (mmol/L) Date Value 07/21/2023 138 06/06/2021 141 Chloride (mmol/L) Date Value 07/21/2023 100 06/06/2021 104 CO2 (mmol/L) Date Value 07/21/2023 31 06/06/2021 30 Creatinine (mg/dL) Date Value 12/10/2023 0.80 06/06/2021 0.82 BUN (mg/dL) Date Value 07/21/2023 13 06/06/2021 17 Anion Gap (mmol/L) Date Value 07/21/2023 7 06/06/2021 7 Calcium (mg/dL) Date Value 06/06/2021 9.9 Calcium, Total (mg/dL) Date Value 12/10/2023 10.1 Protein, Total (g/dL) Date Value 07/21/2023 6.9 06/06/2021 7.4 Albumin (g/dL) Date Value 07/21/2023 4.9 06/06/2021 5.0 Bilirubin, Total (mg/dL) Date Value 07/21/2023 0.4 06/06/2021 0.5 Alkaline Phosphatase (U/L) Date Value 07/21/2023 87 06/06/2021 94 AST (U/L) Date Value 07/21/2023 22 06/06/2021 24 ALT (U/L) Date Value 07/21/2023 17 06/06/2021 17 WBC Date Value Ref Range Status 07/21/2023 4.16 3.70 - 11.00 k/uL Final RBC Date Value Ref Range Status 07/21/2023 4.32 3.90 - 5.20 m/uL Final Hemoglobin Date Value Ref Range Status 07/21/2023 12.7 11.5 - 15.5 g/dL Final Hematocrit Date Value Ref Range Status 07/21/2023 39.3 36.0 - 46.0 % Final MCV Date Value Ref Range Status 07/21/2023 91.0 80.0 - 100.0 fL Final MCH Date Value Ref Range Status 07/21/2023 29.4 26.0 - 34.0 pg Final MCHC Date Value Ref Range Status 07/21/2023 32.3 30.5 - 36.0 g/dL Final RDW-CV Date Value Ref Range Status 07/21/2023 12.7 11.5 - 15.0 % Final Platelet Count Date Value Ref Range Status 07/21/2023 239 150 - 400 k/uL Final MPV Date Value Ref Range Status 07/21/2023 8.7 (L) 9.0 - 12.7 fL Final Abs Neut Date Value Ref Range Status 07/21/2023 2.00 1.45 - 7.50 k/uL Final Lymphocytes % Date Value Ref Range Status 07/21/2023 29.8 % Final Abs Lymph Date Value Ref Range Status 07/21/2023 1.24 1.00 - 4.00 k/uL Final Monocytes % Date Value Ref Range Status 07/21/2023 9.1 % Final Abs Holmes Date Value Ref Range Status 07/21/2023 0.38 <0.87 k/uL Final Abs Eosin Date Value Ref Range Status 07/21/2023 0.44 <0.46 k/uL Final Basophils % Date Value Ref Range Status 07/21/2023 2.2 % Final Abs Baso Date Value Ref Range Status 07/21/2023 0.09 <0.11 k/uL Final PATH: Left breast biopsy [...] Stain intensity: Strong Imaging: Dexa Scan 06/2022: Assessment and Plan: Francois 53-year-old with node positive ER/NJ positive HER-2/clari positive breast cancer diagnosed 2010 post neoadjuvant trastuzumab plus carboplatin and paclitaxel and 1 year of adjuvant trastuzumab. Patient had residual disease but no sharmaine disease at the time of surgery. Completed 5 years of Tamoxifen and 5 years of Aromasin in 2021. Dexa scan 06/2022, lowest score -2.2 and follows Rheum and planning on a repeat Dexa scan Encouraged exercise and diet. Repeat genetic testing as her testing was years ago,. See back in 12 Months for follow up Thank you for the kind referral. If there are any questions and or concerns please do not hesitate to contact me at [phone]. Gayla Ribeiro MD Hematology/Medical Oncology [facility] CC: Joon Miramontes I spent a total of 30 minutes on the date of the service which included preparing to see the patient, [id number] patient care, completing clinical documentation, obtaining and/or reviewing separately obtained history, performing a medically appropriate examination and counseling and educating the patient/family/caregiver. documented in this encounter [facility] 07-26-2024 History of Presen t illness Narrative Images from the original note were not included. Radiation Oncology - Follow Up Note PATIENT NAME: Francois Christiansen PATIENT DIAGNOSIS: Breast cancer, left, T3N1 invasive ductal carcinoma , ER/NJ and HER2/clari positive. s/p neoadjuvant chemotherapy followed by mastectomy followed by adjuvant chest wall and regional lymph node radiation. RADIATION SUMMARY: 50 Gy to the left chest wall and regional nodel areas and a total 65 Gy to the ranjeet-mastectomy incision area completed radiation May 06, 2012 INTERVAL HISTORY: Patient states she has been doing well. Denies any new problems or concerns. Denies chest pain, skin changes or rash. Denies upper extremity paresthesias or swelling. ALLERGIES: ALLERGIES Allergen Reactions Biaxin [Clarithromy* Rash Penicillins Rash Sulfa (Sulfonamide * Rash MEDICATIONS: CALCIUM ORAL Take by mouth. fluticasone propion/salmeterol (ADVAIR DISKUS INHALATION) Inhale as instructed. fexofenadine HCl (AYAH ALLERGY ORAL) Take by mouth. Ascorbic Acid (VITAMIN C) 250 mg chew Take 500 mg by mouth once daily. PROAIR HFA 90 mcg/actuation inhaler Inhale 1 Puff as instructed every 4 hours as needed. cholecalciferol, vitamin D3, (VITAMIN D3 ORAL) Take by mouth. (Patient not taking: Reported on 07/26/2024) PHYSICAL EXAM: 07/26/24 1331 BP: 119/79 Pulse: 78 Temp: 36.2 C (97.1 F) SpO2: 95% Weight: 65.2 kg (143 lb 11.8 oz) KPS: 100 General Appearance: Well appearing, [...] bilateral breasts are surgically absent, evidence of stable post radiation changes left chest wall, including area of telangiectasia. No areas of induration or swelling or nodularity. ASSESSMENT/PLAN: T3N1 invasive ductal carcinoma of the left breast, ER/NJ and HER2/clari positive. s/p neoadjuvant chemotherapy followed by mastectomy followed by adjuvant chest wall and regional lymph node radiation. Clinically doing well. No evidence recurrence. Stable mild posttreatment related skin issues. Recommend follow-up in 1 year. Signed by: Ariela Harden MD documented in this encounter [facility] 07-26-2024 Note HNO ID: [id number] Author: Ariela HARDEN MD Service: ? Author Type: Physician Type: Progress Notes Filed: 08/03/2024 09:45 Note Text: Radiation Oncology - Follow Up Note PATIENT NAME: Francois Christiansen PATIENT DIAGNOSIS: Breast cancer, left, T3N1 invasive ductal carcinoma , ER/NJ and HER2/clari positive. s/p neoadjuvant chemotherapy followed by mastectomy followed by adjuvant chest wall and regional lymph node radiation. RADIATION SUMMARY: 50 Gy to the left chest wall and regional nodel areas and a total 65 Gy to the ranjeet-mastectomy incision area completed radiation May 06, 2012 INTERVAL HISTORY: Patient states she has been doing well. Denies any new problems or concerns. Denies chest pain, skin changes or rash. Denies upper extremity paresthesias or swelling. ALLERGIES: ALLERGIES Allergen Reactions Biaxin [Clarithromy* Rash Penicillins Rash Sulfa (Sulfonamide * Rash MEDICATIONS: CALCIUM ORAL Take by mouth. fluticasone propion/salmeterol (ADVAIR DISKUS INHALATION) Inhale as instructed. fexofenadine HCl (AYAH ALLERGY ORAL) Take by mouth. Ascorbic Acid (VITAMIN C) 250 mg chew Take 500 mg by mouth once daily. PROAIR HFA 90 mcg/actuation inhaler Inhale 1 Puff as instructed every 4 hours as needed. cholecalciferol, vitamin D3, (VITAMIN D3 ORAL) Take by mouth. (Patient not taking: Reported on 07/26/2024) PHYSICAL EXAM: 07/26/24 1331 BP: 119/79 Pulse: 78 Temp: 36.2 ?C (97.1 ?F) SpO2: 95% Weight: 65.2 kg (143 lb 11.8 oz) KPS: 100 General Appearance: Well appearing, [...] bilateral breasts are surgically absent, evidence of stable post radiation changes left chest wall, including area of telangiectasia. No areas of induration or swelling or nodularity. ASSESSMENT/PLAN: T3N1 invasive ductal carcinoma of the left breast, ER/NJ and HER2/clari positive. s/p neoadjuvant chemotherapy followed by mastectomy followed by adjuvant chest wall and regional lymph node radiation. Clinically doing well. No evidence recurrence. Stable mild posttreatment related skin issues. Recommend follow-up in 1 year. Signed by: Ariela Harden MD [facility] 12-15-2023 Miscellaneous Notes I discussed lab results with francois. they are normal. CTX is 393, which [...] treatment recommendations at that time. I called francois to discuss results. no answer. LMTCB documented in this encounter [facility] 12-10-2023 History of Presen t illness Narrative [...] asthmaticus Vaginal bleeding has h/o node positive ER/NJ positive HER-2/clari positive breast cancer diagnosed 2010 [...] CURETTAGE DX&/THER NONOBSTETRIC 2016 Dilation & curettage DILATION & CURETTAGE DX&/THER [...] 3243 pg/mL Second trimester : 1561 TO 40232 pg/mL Third trimester : 8285 to >90071 pg/mL Post-menopausal Estradiol reference range: < 41 pg/mL Reference: 1. Estradiol - E2 (Estradiol III) [package insert V 3.0 American]. [facility], [place], [place], March 2016. 05/11/2016 <5 pg/mL Final [...] alk phos 86 BONE DENSITY RESULTS: 07/17/22 [facility] L1-L4 0.916 T -2.2 left fem neck [...] Cheryl Garcia MD documented in this encounter [facility] 12-10-2023 Note HNO ID: [id number] Author: CHERYL GARCIA MD Service: ? Author [...] Risk Factors Fracture(s) Wrist Fracture (Comment: around 2019- fell backwards [...] asthmaticus Vaginal bleeding has h/o node positive ER/NJ positive HER-2/clari positive breast cancer diagnosed 2010 [...] as instructed hossein (more content not included)... [facility] 09-27-2023 Evaluation note Encounter Date Diagnosis Assessment Notes Sep, Wellness examination (ICD-10 - Z00.00) Healthy diet and exercise. Reviewed age-appropriate preventive testing recommended. Sep, Osteopenia of multiple sites (ICD-10 - M85.89) Ca and Vit D supplements. Weight bearing exercises Recommend referral to Rheumatology for treatment advice Sep, Mild intermittent asthma without complication (ICD-10 - J45.20) Sep, Other decreased white blood cell (WBC) count [...] present treatment w/o change UTD w/ vaccine [employer] Other [id number] History of Present illness Narrative* Ariela Harden MD - 08/26/2023 11:30 AM EST Images from the original note were not included. Radiation Oncology - Follow Up Note PATIENT NAME: Francois Christiansen PATIENT DIAGNOSIS: Breast cancer, left, T3N1 invasive ductal carcinoma , ER/NJ and HER2/clari positive. s/p neoadjuvant chemotherapy followed [...] invasive ductal carcinoma of the left breast, ER/NJ and HER2/clari positive. s/p neoadjuvant chemotherapy followed by mastectomy followed by adjuvant chest wall and regional lymphnode radiation. Clinically doing well. No evidence recurrence. Stable posttreatment related skin issues are not problematic for her. Recommend follow-up in 1 year. Signed by: Ariela Harden MD [facility] NoteHNO ID: [id number] Author: Ariela Harden MD Service: ? Author Type: Physician Type: Progress Notes Filed: 08/26/2023 12:47 PM Note Text: Radiation Oncology - Follow Up Note PATIENT NAME: Francois Christiansen PATIENT DIAGNOSIS: Breast cancer, left, T3N1 invasive ductal carcinoma , ER/NJ and HER2/clari positive. s/p neoadjuvant chemotherapy followed [...] invasive ductal carcinoma of the left breast, ER/NJ and HER2/clari positive. s/p neoadjuvant chemotherapy followed by mastectomy followed by adjuvant chest wall and regional lymph node radiation. Clinically doing well. No evidence recurrence. Stable posttreatment related skin issues are not problematic for her. Recommend follow-up in 1 year. Signed by: Ariela Harden [facility]11-09-2022 History of Present illness Narrative* Ariela Harden MD - 08/26/2022 9:42 AM EST Images from the original note were not included. Radiation Oncology - Follow Up Note PATIENT NAME: Francois Christiansen PATIENT DIAGNOSIS: Breast cancer, left, T3N1 invasive ductal carcinoma , ER/[place] and HER2/clari positive. s/p neoadjuvant chemotherapy followed by mastectomy followed by adjuvant chest wall and regional lymph node radiation. RADIATION SUMMARY: 50 Gy to the left chest wall and regional nodel areas and a total 65 Gy to the ranjeet-mastectomy incision area completed radiation May 06, 2012 INTERVAL HISTORY: Francois Christiansen presents for follow up. She is [...] invasive ductal carcinoma of the left breast, ER/[place] and HER2/clari positive. s/p neoadjuvant chemotherapy followed by mastectomy followed by adjuvant chest wall and regional lymphnode radiation. Clinically doing well. No evidence recurrence. She does have stable posttreatment related skin issues which are not problematic for her. Recommend follow-up in 1 year. Signed by: Ariela Harden MD documented [facility] History of Present illness Narrative* Gayla Ribeiro MD - 07/22/2022 1:15 PM EDT [id number] ATTENDING PHYSICIAN: Gayla Ribeiro MD DATE OF SERVICE: July 22, 2022 Some of the elements of this note have been copied from my previous progress note dated 12/16/2021. All the information has been reviewed carefully. Dear Dr. Joon Miramontes MD here is an update on a follow up visit on female Francois Christiansen at the clinic July 22, 2022 Diagnosis: 1. Initial diagnosis of biopsy-proven left breast cancer, infiltrating ductal carcinoma, grade 3, HER-2/clari positive, ER 95% positive, [place] 80% positive August 2011. Treatment History: 1. [...] was switched to Aromasin per Dr. Simons. Oyjnrirn1800-2/2022 5. Abnormal uterine bleeding followed by Dr. Plascencia 6. Genetic testing in 2010 negative for BRCA 1 and 2 per notes. HPI: Francois Christiansen is a 52 year old year [...] 0.95 (L) 1.00 - 4.00 k/uL Final Holmes% Date Value Ref Range Status 06/06/2021 9.3 % Final Abs Holmes Date Value Ref Range Status 06/06/2021 0.38 [...] Scan 06/2022: Report pending Assessment and Plan: Francois 51-year-old with node positive ER/[place] positive HER-2/clari positive breast cancer diagnosed 2011post neoadjuvant trastuzumab plus carboplatin and paclitaxel and [...] do not hesitate to contact me at [phone]. Gayla Ribeiro MD Hematology/Medical Oncology [facility] CC: Joon Miramontes I spent a total of 30 minutes on the date of the service which included preparing to see the patient, objl-ln-wzrc patient care, completing clinical documentation, obtaining and/or reviewing separately obtained history, performing a medically appropriate examination and counseling and educating the patient/family/caregiver. documented in this encounterMary [facility] History of Past illness Narrative* Problem Noted Date Resolved Date Unspecified asthma, with status asthmaticus 07/22/2016 Overview: No hospitalizations. Last use was spring 2010. Trigger: pollen. documented as of this encounter (statuses as of 07/22/2022) [facility] History of Past illness Narrative* Problem Noted Date Resolved Date Unspecified asthma, with status asthmaticus 07/22/2016 Overview: No hospitalizations. Last use was spring 2010. Trigger: pollen. documented as of this encounter (statuses as of 09/01/2022) [facility] of Past illness Narrative* Problem Noted Date Diagnosed Date Resolved Date Unspecified asthma, with status asthmaticus 07/22/2016 Overview: No hospitalizations. Last use was spring 2010. Trigger: pollen. documented as of this encounter (statuses as of 08/26/2023) [facility] of Past illness Narrative* Problem Noted Date Diagnosed Date Resolved Date Unspecified asthma, with status asthmaticus 07/22/2016 Overview: No hospitalizations. Last use was spring 2010. Trigger: pollen. documented as of this encounter (statuses as of 12/10/2023) [facility] of Past illness Narrative* Problem Noted Date Diagnosed Date Resolved Date Unspecified asthma, with status asthmaticus 07/22/2016 Overview: No hospitalizations. Last use was spring 2010. Trigger: pollen. documented as of this encounter (statuses as of 12/15/2023) [facility] [place] [facility]* Diagnosis History of breast cancer- Primary Personal history of malignant neoplasm of breast Osteopenia of lumbar spine documented in this encounter [facility] [place] [facility]* Diagnosis Radiotherapy follow-up examination- Primary [facility] this encounter [facility] [place] [facility]* Diagnosis History of breast cancer- Primary Personal history of malignant neoplasm of breast [facility] this encounter [facility] [place] [facility]* Diagnosis Osteopenia of multiple sites- Primary Encounter for long-term (current) use of medications Encounter for long-term (current) use of other medications History of breast cancer Personal history of malignant neoplasm of breast documented [facility] this encounter [facility] [place] [facility]* Diagnosis Onset Date Resolution Status Mild persistent asthma without complication acute Acute sinusitis noneactive Asthma acute Acute sinusitis noneactive [facility] Work Phone: Evaluation note* Diagnosis Onset Date Resolution Status Asthma acute Acute sinusitis noneactive Asthma acute Acute sinusitis noneactive [facility] Work Phone: Evaluation note* Diagnosis History of breast cancer- Primary Personal history of malignant neoplasm of breast documented [facility] this encounter [facility]* Diagnosis Osteoporosis, post menopausal- Primary Encounter for long-term (current) use of medications Encounter for long-term (current) use of other medications History of breast cancer Personal history of malignant neoplasm of breast documented in this encounter [facility] Narrative - Reported* Type Description Date Medical History Malignant neoplasm o f left female breast, unspecified site of breast Medical History History of breast cancer Medical History Mild persistent asthma without c omplication Surgical History COLONOSCOPY Surgical History Dilation and Curettage of Uteru s Surgical History LEEP Procedure Surgical History Mastectomy - Bilateral Hospitalization History see surgical history [employer] Other Reason for referral (narrative)* Reason Referral for evaluat ion of osteopenia Diagnosis 1 Osteopenia of multip le sites (M85.89) Referral Organization [facility] Terry kang Referring Provider First Name Joon Referring Provider Last Name Terry Referring Provider Specialty Internal Me dicdonna Referred [facility] Referred Provider File, Cheryl Referred Address [address] [place],[address] Referred Provider Specialty Rheumatology Referral Priority Routine [...] exercise. She was advised by a local Tracer Lathe Set Up Operator not to start therapy and to recheck a DEXA scan in 5 years. I feel Mrs. Christiansen is at increased risk for progression to osteoporosis and fragility fractures due to her hx of antiestrogen therapy. Mrs. Christiansen is being referred for a second opinion on initiating treatment for her advanced osteopenia. Clinical Notes Please include her 2 DEXA scans (have scanned into [facility]) [employer] Other Summary Purpose Family History No Family History Records FoundNo Family History Records FoundNo Family History Records Found Advance Directives No Advanced Directives Records Found Advance Directive Response Recorded Date/ Time Advance Directives No March 02 4 3:49pm Reason for Referral Specialty Diagnoses / Procedures Referred By Contac t Referred To Contact Endocrinology Diagnoses Osteopenia of lumbar spine Procedures CONSULT TO ENDOCRINOLOGY OFFICE/OUTPATIENT [facility] MDM 60-74 MINUTES Gayla Ribeiro MD [address] [place] [id number] Referral ID Status Reason Start Date Expiration Date Visits Requested Visits Authorized [id number] Authorized PCP Requested Referral 07/22/2022 07/22/2023 1 1 Specialty Diagnoses / Procedures Referred By Alysa artis Referred To Contact Diagnoses History of breast cancer Procedures CONSULT TO MEDICAL GENETICS - CANCER MEDICAL GENETICS COUNSELING EACH 30 MINUTES Gayla Ribeiro MD [address] [place] [address] [address] Referral ID Status Reason Start Date Expiration Date Visits Requested Visits Authorized [id number] Pending Review PCP Requested Referral Auto-Generate d Referral 08/03/2025 1 1 Chief Complaint and Reason for Visit Chief Complaint sinus infection sinus infection Reason for Visit Mild persistent asth ma without complication Acute sinusitis Asthma Acute sinusitis Chief Complaint sinus infection Sinus pressure Reason for Visit Asthma Acute sinusitis Asthma Acute sinusitis Additional Source Comments INFORMATION SOURCE (unrecogn ized section and content) DATE CREATED AUTHOR 09/02/2018 [facility] DATE CREATED AUTHOR AUTHOR'S ORGANIZ ATION [facility]2022 [facility] DATE CREATED AUTHOR AUTHOR'S ORGANIZ ATION 08/23/2024 [facility] Source Comments (unrecognize d section and content) In the event this informatio n is protected by the Federal Confidentiality of Alcohol and Drug Abuse Patient Records regulations: The Federal rules restrict any use of the information to criminally investigate or prosecute any alcohol or drug abuse patient.[facility] HospitalIn the event this information is protected by the Federal Confidentiality of Alcohol and Drug Abuse Patient Records regulations: The Federal rules restrict any use of the information to criminally investigate or prosecute any alcohol or drug abuse patient.[facility] HospitalIn the event this information is protected by the Federal Confidentiality of Alcohol and Drug Abuse Patient Records regulations: The Federal rules restrict any use of the information to criminally investigate or prosecute any alcohol or drug abuse patient.[facility] HospitalIn the event this information is protected by the Federal Confidentiality of Alcohol and Drug Abuse Patient Records regulations: The Federal rules restrict any use of the information to criminally investigate or prosecute any alcohol or drug abuse patient.[facility] HospitalIn the event this information is protected by the Federal Confidentiality of Alcohol and Drug Abuse Patient Records regulations: The Federal rules restrict any use of the information to criminally investigate or prosecute any alcohol or drug abuse patient.[facility] HospitalIn the event this information is protected by the Federal Confidentiality of Alcohol and Drug Abuse Patient Records regulations: The Federal rules restrict any use of the information to criminally investigate or prosecute any alcohol or drug abuse patient.[facility] HospitalIn the event this information is protected by the Federal Confidentiality of Alcohol and Drug Abuse Patient Records regulations: The Federal rules restrict any use of the information to criminally investigate or prosecute any alcohol or drug abuse patient.[facility] HospitalIn the event this information is protected by the Federal Confidentiality of Alcohol and Drug Abuse Patient Records regulations: The Federal rules restrict any use of the information to criminally investigate or prosecute any alcohol or drug abuse patient.[facility] HospitalIn the event this information is protected by the Federal Confidentiality of Alcohol and Drug Abuse Patient Records regulations: The Federal rules restrict any use of the information to criminally investigate or prosecute any alcohol or drug abuse patient.[facility] HospitalIn the event this information is protected by the Federal Confidentiality of Alcohol and Drug Abuse Patient Records regulations: The Federal rules restrict any use of the information to criminally investigate or prosecute any alcohol or drug abuse patient.[facility] HospitalIn the event this information is protected by the Federal Confidentiality of Alcohol and Drug Abuse Patient Records regulations: The Federal rules restrict any use of the information to criminally investigate or prosecute any alcohol or drug abuse patient.[facility] Reason for Visit (unrecogniz ed section and content) Reason Comments Breast Cancer Follow up Reason Comments Breast Cancer Reason Comments Results Reason Comments Established Patient Reason Comments Appointment Reason Comments Received Outside Medical Records Bone De nsity of 08/09/2024 Reason Comments Recheck Care Teams (unrecognized sec tion and content) Retail Greeter Relationship Specialty Start Date End Date Joon Miramontes DO PCP - General 01/15/06 Almas Betts [address] [place] [address] Java Designer MALL PLANT CARETAKER 07/25/18 Retail Greeter Relationship Specialty Start Date End Date Joon Miramontes DO PCP - General 01/15/06 Almas Betts [address] [place] [address] Java Designer MALL PLANT CARETAKER 07/25/18 Retail Greeter Relationship Specialty Start Date End Date Joon Miramontes DO PCP - General 01/15/06 Almas Betts [address] [place] [address] Java Designer MALL PLANT CARETAKER 07/25/18 Retail Greeter Relationship Specialty Start Date End Date Joon Miramontes DO PCP - General 01/15/06 Almas Betts [address] [place] [address] Java Designer Medical Office Technology Instructor 07/25/18 Retail Greeter Relationship Specialty Start Date End Date Joon Miramontes DO PCP - General 01/15/06 Almas Betts [address] [place] [address] Java Designer Medical Office Technology Instructor 07/25/18 Team Status: Active Member Role Status Dates Joon Miramontes DO Primary Care Provider Active Team Status: Inactive Member Role Status Dates Joon Miramontes DO Primary Care Provide r, Attending Provider Active Start: December 17, 2023 End: December 17, 2023 Team Status: Inactive Member Role Status Dates Joon Miramontes DO Primary Care Provide r, Attending Provider Active Start: March 03, 2024 End: May 17th, 2024 Team Status: Inactive Member Role Status Dates Joon Miramontes DO Primary Care Provide r, Attending Provider Active Start: April 14, 2024 End: April 14, 2024 Retail Greeter Relationship Specialty Start Date End Date Joon Miramontes DO PCP - General 01/15/06 Almas Betts [address] [place] [address] Java Designer Medical Office Technology Instructor 07/25/18 Retail Greeter Relationship Specialty Start Date End Date Joon Miramontes DO PCP - General 01/15/06 Almas Betts [address] [place] [address] Java Designer Medical Office Technology Instructor 07/25/18 Retail Greeter Relationship Specialty Start Date End Date Joon Miramontes DO PCP - General 01/15/06 Almas Betts [address] [place] [address] Java Designer Medical Office Technology Instructor 07/25/18 Retail Greeter Relationship Specialty Start Date End Date Joon Miramontes DO PCP - General 01/15/06 Almas Betts [address] [place] [address] Java Designer Medical Office Technology Instructor 07/25/18 Retail Greeter Relationship Specialty Start Date End Date Joon Miramontes DO PCP - General 01/15/06 Almas Betts [address] [place] [address] Java Designer Medical Office Technology Instructor 07/25/18 Goals (unrecognized section and content) Goals may [...] BE BASED ON THE PRIMARY CLINICAL RECORDS. [facility] [employer] [facility]. provides no warranty or guarantee of the accuracy or completeness of information in this document.
[2024-09-29 14:09] LABS: Alanine Aminotransferase 20 U/L (14-59); Albumin Globulin Ratio 1.1; Albumin Level 4.1 g/dL (3.4-5.0); Alkaline Phosphatase 82 U/L (46-116); Anion Gap 9.9; Aspartate Amino Transferase 18 U/L (15-37); Bilirubin Total 0.7 mg/dL (0.2-1.0); Calcium 9.3 mg/dL (8.5-10.1); Carbon Dioxide 31.7 mmol/L (21.0-32.0); Chloride 103 mmol/L (98-107); Chol HDL Ratio 2.2; Cholesterol 216 mg/dL (<=200); Estimated GFR (African America >60 (>=60 mL/min/1.73m^2); Estimated GFR (Non-African Ame >60 (>=60 mL/min/1.73m^2); Globulin 3.6 g/dL; Glucose 92 mg/dL (74-106); HDL Cholesterol 96 mg/dL (40-60); Potassium 3.6 mmol/L (3.5-5.1); Sodium 141 mmol/L (136-145); Thyroid Stimulating Hormone 1.671 uIU/mL (0.358-3.740); Total Protein 7.7 g/dL (6.4-8.2); Triglycerides 80 mg/dL (<=150)
[2024-09-29 14:19] LABS: Basophils Absolute Auto 0.1 10^3/uL (0.0-0.1); Basophils Percent Auto 1.3 % (0.2-2.0); Eosinophils Absolute Auto 0.3 10^3/uL (0.0-0.7); Eosinophils Percent Auto 6.2 % (0.9-7.0); Hemoglobin 13.7 g/dL (12.0-16.0); Lymphocytes Absolute Auto 0.8 10^3/uL (1.2-3.8); Lymphocytes Percent Auto 14.5 % (20.5-60.0); Mean Corpuscular HGB Conc 32.6 g/dL (29.9-35.2); Mean Corpuscular Hemoglobin 29.7 pg (26.7-34.0); Mean Corpuscular Volume 91.1 fL (81.0-99.0); Mean Platelet Volume 9.9 fL (9.5-13.5); Monocytes Absolute Auto 0.5 10^3/uL (0.3-0.8); Monocytes Percent Auto 9.4 % (1.7-12.0); Neutrophils Absolute Auto 3.6 10^3/uL (1.4-6.5); Neutrophils Percent Auto 68.6 % (43.0-75.0); Platelet Count 279 10^3/uL (150-450); Red Blood Count 4.61 10^6/uL (4.20-5.40); Red Cell Distribution Width 12.5 % (11.0-15.0); White Blood Count 5.2 10^3/uL (4.0-11.0)
[2024-09-29 15:05] LABS: Estimated Average Glucose 111 mg/dL; Glycohemoglobin A1C 5.5 % (4.5-6.2)
== END 2024-09-29 12:27 | disposition home or self-care (01) ==
PROVIDERS: PCP Internal Medicine; Visit Provider Internal Medicine
DX: Z00.00 Encounter for general adult medical examination without abnormal findings (principal)
CPT/HCPCS: 36415; 80053; 80061; 83036; 84443; 85025

== ENCOUNTER 2024-12-12 15:12 | Outpatient (OUT) | payer BC, SELFPAY ==
[2024-12-12 16:12] LABS: Calcium 9.4 mg/dL (8.5-10.1); Estimated GFR (African America >60 (>=60 mL/min/1.73m^2); Estimated GFR (Non-African Ame >60 (>=60 mL/min/1.73m^2)
== END 2024-12-12 15:13 | disposition home or self-care (01) ==
LOC: LAB 15:13
PROVIDERS: PCP Internal Medicine
DX: M81.0 Age-related osteoporosis without current pathological fracture (principal); Z79.899 Other long term (current) drug therapy; Z85.3 Personal history of malignant neoplasm of breast
CPT/HCPCS: 36415; 82306; 82310; 82523; 82565

== ENCOUNTER 2025-08-14 08:43 | Outpatient (OUT) | payer BC, SELFPAY ==
--- OUTSIDE RECORDS SUMMARY | 2025-07-31 15:30 | XMS_ITS | Encounter Summary ---
Author Organization [facility] Address [address] [place] [address] Care Team Providers Care Per Diem Rn Name Role Phone Joon Miramontes DO Primary Care Provider [phone] Almas Betts Unavailable Source Comments In the event this information is protected by the Federal Confidentiality of Alcohol and Drug AbusePatient Records regulations: The Federal rules restrict any use of the information to criminally investigate or prosecute any alcohol or drug abuse patient.[facility] Reason for Visit * ReasonCommentsBreast Cancer Encounter Details DateTypeDepartmentCare Team (Latest Contact Info)Eqcialxvcic48/14/2025 3:30 PM EDTOffice Visit Radiation Oncology [address] [place] [address] [place] [address] Ariela Harden MD [address] [place] [address] [place] [address] History of breast cancer (Primary Dx) Social History Tobacco UseTypesPacks/DayYears UsedDateSmoking Tobacco: NeverSmokeless Tobacco: Never Tobacco Cessation:Counseling Given: Not Answered Alcohol UseStandard Drinks/WeekCommentsYes0 (1 standard drink = 0.6 oz pure alcohol)RarelyPHQ-2AnswerDate RecordedPHQ-2 knodt603/14/2025Area Deprivation IndexAnswerDate RecordedNational Score (1-100), lower number is lower risk53 07/21/2023State Score (1-10), lower number is lower ewuk0723Data from: https://www.neighborhoodatlas.[facility].edu/. Last address used for mdunvsqymne[address]CommentsNoSex and Gender Information ValueDate RecordedSex Assigned at BirthNot on fileLegal VojEnshzg30/02/2012 9:21 AM ESTGender IdentityNot on fileSexual OrientationNot on filedocumented as of this encounter Last Filed Vital Signs Vital SignReadingTime TakenCommentsBlood Daewgled213/8107/31/2025 3:33 PM EDT Wzkum832607/31/2025 3:33 PM LDACevjraryadr60.7 ??C (98.1 ??F)07/31/2025 3:33 PM EDTRespiratory Oype6918 3:33 PM EDTOxygen Jqfwknpnxd24%07/31/2025 3:33 PM EDTInhaled Oxygen Concentration--Ajpzcu04.4 kg (146 lb 6.2 oz)07/31/2025 3:33 PM EDTHeight--Body Mass Index22.261 11:43 AM EDTdocumented in this encounter Functional Status * Are you deaf or do you have serious difficulty hearing?AnswerDate of McgweigyptCfcehlGc98/20/2015 1:25 PM Charley Souza * Are you blind or do you have serious difficulty seeing, even when wearing glasses?AnswerDate of LnhfwtbawnYsjcgoBm14/20/2015 1:25 PM Charley Souza * Do you have serious difficulty walking or climbing stairs?AnswerDate of YmqjomdjxuRsxourDb48/20/2015 1:25 PM Charley Souza * Do you have difficulty dressing or bathing?AnswerDate of AssessmentAuthorNo 05/06/2015 1:25 PM Charley Souza * Because of a physical, mental, or emotional condition, do you have difficulty doing errands alone such as visiting a doctor's office or shopping?AnswerDate of QbdnrpauxnBgqzhmJn61/20/2015 1:25 PM Charley Souza documented as of this encounter Mental Status * Because of a physical, mental, or emotional condition, do you have serious difficulty concentrating, remembering, or making decisions?AnswerEntry Date AacjqtRt75/20/2015 1:25 PM Charley Souza documented in this encounter Progress Notes * Ariela Harden MD - 07/31/2025 3:30 PM EDT Images from the original note were not included. Radiation Oncology - Follow Up Note PATIENT NAME: Lili Christiansen PATIENT DIAGNOSIS: Breast cancer, left, T3N1 invasive ductal carcinoma , ER/[place] and HER2/clari positive. s/p neoadjuvant chemotherapy followed [...] as instructed every 4 hours as needed. PHYSICAL EXAM: 07/31/25 1533 BP: 127/81 Pulse: 84 Resp: 16 Temp: 36.7 ??C (98.1 ??F) SpO2: 97% Weight: 66.4 kg (146 lb 6.2 oz) KPS: 100 General Appearance: Well appearing, [...] invasive ductal carcinoma of the left breast, ER/[place] and HER2/clari positive. s/p neoadjuvant chemotherapy followed by mastectomy followed by adjuvant chest wall and regional lymphnode radiation. Clinically doing well. No evidence recurrence. Stable mild posttreatment related skin issues but are not problematic. Recommend follow-up in 1 year. Signed by: Ariela Harden MD documented in this encounter Plan of Treatment DateTypeDepartmentCare Team (Latest Contact Info)Pkzappzaayo74/04/2025 4:15 PM ESTVisit (SP) Office Hematology [address] [place] [address] Roosevelt Ribeiro MD [address] [place] [address] 1 year follow up08/23/2025 11:40 AM [facility] [address] [address] Cheryl Garcia MD [address] [place] [address] 1 YEAR OSTEOPOROSIS F/U PER DR. GARCIA08/06/2026 3:30 PM EDTOffice Visit Radiation Oncology [address] [place] [address] [place] [address] Ariela Harden MD [address] [place] [address] [place] [address] 1 yr rvdocumented as of this encounter Visit Diagnoses Diagnosis History of breast cancer- Primary Personal history of malignant neoplasm of breast documented in this encounter Care Teams Team MemberRelationshipSpecialtyStart DateEnd Date Joon Miramontes DO PCP - General01/15/06 Almas Betst [address] [place] [address] ObstetricianOb/Gyn07/25/18documented as of this encounter
--- OUTSIDE RECORDS SUMMARY | 2025-08-14 08:49 | XMS_ITS ---
Author Organization [facility] Address [address] [place] [address] Care Team Providers Care Attendant [facility] Name Role Phone Joon Miramontes Primary Care Provider Almas Betts Unavailable Active Problems ProblemNoted DateDiagnosed DateOsteoporosis, post hrfvtsvwhu94/27/2025Thickened qyfwldwdgii09/05/2018 Overview (06/22/2018): Added automatically from request for surgery [id number] Radiotherapy follow-up dznqqsacfvn88/14/2015Personal history of malignant neoplasm of lwjpei4907/18/2014Sacral insufficiency xqzgtkfy10/05/2013Osteoporosis with spdkxojx99/05/2013Pain, joint, hip, right10/25/2012Nonspecific (abnormal) findings on radiological and other examination of musculoskeletal system 10/25/2012reast riojbw9009/17/2011Malignant neoplasm of breast (female), unspecified site09/17/20115788Wtqjjdtssx96/28/2010Fibrocystic cyejnf0907/15/2010 Enlarged lymph node07/15/2010Chronic ethmoidal imanuider45/08/2006Chronic maxillary nnaowtnrn99/08/2006Chronic frontal owoxpkfmm66/08/2006Chronic sphenoidal yogspnaps31/08/2006 Current Treatment and Therapy Plans No current plan information found. Other Current Plans ZOLEDRONIC ACID (RECLAST)* Plan Start Date:01/18/2025 Plan Provider:Cheryl Garcia MD Linked Problems Osteoporosis, post menopausa l Treatment Medications zoledronic acid (RECLAST) Past Treatment and Therapy Plans Plan NameStart DateDiscontinue DateTreatment MedicationsDiscontinue ReasonPlan ProviderCyclesTRASTUZUMAB 8 D1 - Q21D06/07/2012* trastuzumab iv piggyback (HERCEPTIN) Young Storey G3 of 7 cycles started Resolved Problems ProblemNoted DateDiagnosed DateResolved DateUnspecified asthma, with status zuvryzdlyos33/05/2016 Overview (02/05/2012): No hospitalizations. Last use was spring 2010. Trigger: pollen.
--- OUTSIDE RECORDS SUMMARY | 2025-08-14 08:49 | XMS_ITS | Clinical Summary ---
Author Organization [facility] Address [facility] [place]-[id number] [address] [place] [address] Care Team Providers Care Army Officer Name Role Phone Unavailable Primary Care Provider Unavailabl e Allergies Active AllergyReactionsCriticalityNoted DateCommentsClarithromycinRashLow 01/15/20060815NaftjqogafaLjlsSui23/31/2006Sulfa (Sulfonamide Antibiotics)RashLow 09/25/2013 Medications MedicationSigDispense QuantityRefillsLast FilledStart DateEnd DateStatus albuterol (PROAIR HFA) 90 mcg/actuation inhaler Inhale 1 puff every 4 (four) hours as needed.07/08/2015ctive exemestane (AROMASIN) 25 mg chemo tablet Take 1 tablet by mouth daily07/27/2018Active fluticasone propion-salmeterol (ADVAIR DISKUS) 500-50 mcg/dose DISKUS Inhale 1 puff every 12 (twelve) hours as needed.03/19/2016Active Social History Tobacco UseTypesPacks/DayYears UsedDateSmoking Tobacco: NeverSmokeless Tobacco: NeverAlcohol UseStandard Drinks/WeekCommentsYes0 (1 standard drink = 0.6 oz pure alcohol)occasionalChildcareAnswerDate OwmtzkwqGschnkcwrNqvkggm94/10/2019 EmploymentAnswerDate BeyxysmtVnqsupjbkyKplilxi92/10/2019Purpose - LifeAnswerDate RecordedPurpose and direction in aufoFgjvyoa30/10/2021CommentsNoSex and Gender InformationValueDate RecordedSex Assigned at BirthNot on fileLegal Sex Fdrsqs6905/21/2015 4:08 PM EDTGender IdentityNot on fileSexual OrientationNot on file Last Filed Vital Signs Vital SignReadingTime TakenCommentsBlood Eaeysmvf218/7808 5:45 PM EDT Eejro6380/ 5:50 PM HDQSoorjjnlokd50.4 ??C (97.5 ??F)06/14/2019 3:47 PM EDTRespiratory Zvrc730506/14/2019 5:00 PM EDTOxygen Apuqdojtyh62%06/14/2019 5:50 PM EDTInhaled Oxygen Concentration--Qewyoa98.1 kg (148 lb)06/14/2019 12:21 PM UJQVbrimr583.2 cm (5' 7 )06/14/2019 12:21 PM EDTBody Mass Index23.18006/14/2019 12:21 PM EDT Plan of Treatment Health MaintenanceDue DateLast DoneCommentsDepression Lmszbaogs45/24/1980Tobacco Bsdaufebg28/24/1980Adult BMI Hcxoqetrw13/24/1986DTaP,Tdap and Td Vaccines (1 - Tdap)1987Pap Smear1989Zoster (Shingles) Vaccine (1 of 2)2018 Influenza Osgylek6106/18/2025 Medical Devices ImplantedTypeAreaManufacturerDevice IdentifierShelf Expiration DateModel / Serial / LotPlt Bn 3 H Std Ti L Dst Volar Rad - Sna - [id number] Implanted:Qty: 1 on 06/14/2019 [facility]: TozckKbakpxc53/28/[id number] / NA / NAPlt Bn 3 H Std Ti R Dst Volar Rad - Sna - [id number] Implanted:Qty: 1 on 06/14/2019 [facility]: UcwpsVulurzv38/28/[id number] / NA / NAScr Bn 22mm 2.4mm Va St Sld - Sna - [id number] Implanted:Qty: 1 on 06/14/2019 [facility]: YfyvoQbbqwvp11/28/[id number]-61 / NA / NAScr Bn 18mm 2.4mm Va Lck Smth - Sna - [id number] Implanted:Qty: 1 on 06/14/2019 by Kavin Thacker, DO [facility]: JqrtlUcovbbq23/28/[id number]-85 / NA / NAScr Bn 12mm 3.5mm Lck Lp Ti - Sna - [id number] Implanted:Qty: 1 on 06/14/2019 by Kavin Thacker, DO [facility]: FspuaOtlpzds91/28/[id number]-41 / NA / NAScr Bn L14mm Od3.5mm Ti Robbin Ank Ft Self Drl Keiry - Sna - [id number] Implanted:Qty: 1 on 06/14/2019 by Kavin [facility] DO [facility]: OusmxUbazrxt42/28/[id number]-87 / NA / NAScr Bn 12mm 3.5mm Lck Lp Ti - Sna - [id number] Implanted:Qty: 2 on 06/14/2019 by Kavin Thacker DO [facility]Left: PhdwgCyewila28/28/[id number]-68 / NA / NAScr Bn 16mm 2.4mm Va [address] Sld - Sna - [id number] Implanted:Qty: 1 on 06/14/2019 by Kavin [facility]acker DO [facility]: PphxxZkwyyyt29/28/[id number]-41 / NA / NAScr Bn 18mm 2.4mm Va [address] Sld - Sna - [id number] Implanted:Qty: 3 on 06/14/2019 by Kavin Thacker DO [facility]: ZkqaySbrpzqm38/28/[id number]-35 / NA / NAScr Bn L14mm Od3.5mm Ti- Robbin Self Drl Nonlocking Ft - Sna - [id number] Implanted:Qty: 1 on 06/14/2019 by Kavin [facility]acker DO [facility]: KeexgJsskhlp23/28/[id number] / NA / NAScr Bn 16mm 2.4mm Va [address] Sld - Sna - [id number] Implanted:Qty: 1 on 06/14/2019 [facility]: FtwjqDpwwpds65/28/[id number]-[id number]-08 / NA / NAScr Bn 18mm 2.4mm Va [address] Sld - Sna - [id number] Implanted:Qty: 1 on 06/14/2019 by Kavin Thacker DO [facility]: ZbzwpRktubra57/28/[id number]-52 / NA / NAScr Bn 20mm 2.4mm Va [address] Sld - Sna - [id number] Implanted:Qty: 1 on 06/14/2019 [facility]Right: NixxzJvvztce66/28/[id number]-51 / NA / NAScrew Implanted:Qty: 1 on 06/14/2019 [facility]: AmmhrBkohfos32/28/[id number]-[id number] / NA / NA Insurance
--- OUTSIDE RECORDS SUMMARY | 2025-08-14 08:49 | XMS_ITS | Clinical Summary ---
Author Organization [facility] Address [address] [place] [address] Care Team Providers Care Appliance Parts Counter Clerk Name Role Phone Joon Miramontes Primary Care Provider Almas Betts Unavailable Allergies Active AllergyReactionsCriticalityNoted NhwjIglcpmheDlwmyigjpllogvJsps34/31/2006 NayurykcrisYhzs87/31/2006Sulfa (Sulfonamide Antibiotics)Rash09/25/2013 Medications MedicationSigDispense QuantityRefillsLast FilledStart DateEnd DateStatus PROAIR HFA 90 mcg/actuation inhaler Inhale 1 Puff as instructed every 4 hours as needed. 07/08/2015ctive Ascorbic Acid (VITAMIN C) 250 mg chew Take 500 mg by mouth once daily.Active fexofenadine HCl (AYAH ALLERGY ORAL) Take by mouth.Active fluticasone propion/salmeterol (ADVAIR DISKUS INHALATION) Inhale as instructed.Active CALCIUM ORAL Take by mouth.Active Active Problems ProblemNoted DateDiagnosed DateOsteoporosis, post jxdmrfrmys96/27/2025Thickened ngowrjmihqo52/05/2018 Overview (06/22/2018): Added automatically from request for surgery [id number] Radiotherapy follow-up wvestfjhetj60/14/2015Personal history of malignant neoplasm of vnvptp9607/18/2014Sacral insufficiency mmoukpfv49/05/2013Osteoporosis with oohlinei21/05/2013Pain, joint, hip, right10/25/2012Nonspecific (abnormal) findings on radiological and other examination of musculoskeletal system 01/08/2013Breast kmvzzd3309/17/2011Malignant neoplasm of breast (female), unspecified site09/17/20116522Qjkepvqica61/28/2010Fibrocystic zhlrso8707/15/2010 Enlarged lymph node07/15/2010Chronic ethmoidal zlfsaqwxs23/08/2006Chronic maxillary /08/2006Chronic frontal xdnhufbov54/08/2006Chronic sphenoidal dzozbcsur27/08/2006 Resolved Problems ProblemNoted DateDiagnosed DateResolved DateUnspecified asthma, with status vulkcjfqssx96/05/2016 Overview (02/05/2012): No hospitalizations. Last use was spring 2010. Trigger: pollen. Encounters DateTypeDepartmentCare NvkcNrkvwdsedat50/14/2025 3:30 PM EDTOffice Visit Radiation Oncology [address] [place] [address] [place] [address] Ariela Harden MD History of breast cancer (Primary Dx)06/08/2025 Patient Msg Pulmonary Medicine [address] [place] [address] Provider, [facility] Dr. Ribeiro reschedulefrom Last 3 Months Immunizations ImmunizationAdministration DatesNext Dueinfluenza (IIV4) vaccine, age 6 mo - 64 yr, quadrivalent, PF (AFLURIA, FLUARIX, FLULAVAL, FLUZONE)08/18/2021,08/06/2020 Family History Medical HistoryRelationCommentsCOPDMaternal GrandfatherAsthmaOtherCancerPaternal GrandmotherRelationStatusCommentsBrotherAliveFatherAliveMaternal Grandfather MotherAliveOtherPaternal Grandmother Social History Tobacco UseTypesPacks/DayYears UsedDateSmoking Tobacco: NeverSmokeless Tobacco: Never Tobacco Cessation:Counseling Given: Not Answered Alcohol UseStandard Drinks/WeekCommentsYes0 (1 standard drink = 0.6 oz pure alcohol)RarelyPHQ-2AnswerDate RecordedPHQ-2 erenj079/14/2025Area Deprivation IndexAnswerDate RecordedNational Score (1-100), lower number is lower risk53 07/21/2023State Score (1-10), lower number is lower mrij6843Data from: https://www.neighborhoodatlas.[facility].edu/. Last address used for omtqancctpe[address]CommentsNoSex and Gender Information ValueDate RecordedSex Assigned at BirthNot on fileLegal PldFcdhuh47/02/2012 9:21 AM ESTGender IdentityNot on fileSexual OrientationNot on file Last Filed Vital Signs Vital SignReadingTime TakenCommentsBlood Vtsygkeu262/8107/31/2025 3:33 PM EDT Gtyct326907/31/2025 3:33 PM XVWMfeanoyqamx09.7 ??C (98.1 ??F)07/31/2025 3:33 PM EDTRespiratory Tvir1950 3:33 PM EDTOxygen Xcwexqeqka62%07/31/2025 3:33 PM EDTInhaled Oxygen Concentration--Swtwqe10.4 kg (146 lb 6.2 oz)07/31/2025 3:33 PM SYQJtwlji872.7 cm (5' 8 )08/03/2024 11:43 AM EDTBody Mass Index22.26 08/03/2024 11:43 AM EDT Plan of Treatment DateTypeDepartmentCare Team (Latest Contact Info)Ohqrnwpvxlp16/04/2025 4:15 PM ESTVisit (SP) Office Hematology [address] [facility] [place] [address] Roosevelt Ribeiro MD [address] [place] [address] 1 year follow up08/23/2025 11:40 AM [facility] [address] [address] Cheryl Garcia MD [address] [place] [address] 1 YEAR OSTEOPOROSIS F/U PER DR. GARCIA08/06/2026 3:30 PM EDTOffice Visit Radiation Oncology [address] [place] [address] [place] [address] Ariela Harden MD [address] [place] [address] [place] [address] 1 yr rvHealth MaintenanceDue DateLast DoneCommentsAnxiety Hbvgtador27/24/1986 Depression Nlaihpbzr24/24/1986HIV Lbadvvfcm91/24/1986Hepatitis C Screening 1986DTaP,Tdap,Td Vaccine (1 - Tdap)1987Hepatitis B Vaccine (1 of 3 - 19+ 3-dose series)1987Cervical Cancer Xgyvgxryt09/24/1989Mammogram Dxrqtherf05/24/2008CT Tvperfsmafsu18/24/2013Cologuard (FIT-DNA)2013 Adixwwjexzs96/24/2013Colorectal Cancer Eaeeqfjvq64/24/2013Fecal Occult Blood 2013Lipid Luriraiec41/24/5379Acjeimduafank95/24/2013Pneumococcal Vaccine: 50+ (1 of 1 - PCV)2018Shingrix Vaccine (1 of 2)2018Covid-19 Vaccine (3 - season)2021, 09/03/2021Influenza Vaccine (#1) 510/, 11/30/2022, 08/18/2021, Additional history existsDiabetes Qvkaaztcv27/04/396184, 07/22/2022, 06/06/2021, Additional history exists Procedures Procedure NamePriorityDate/TimeAssociated DiagnosisCommentsCOMPREHENSIVE METABOLIC LFQGBLplmeng32/04/2023 12:34 PM EDT History of breast cancer from Last 3 Months or Most Recently Relevant to Health Maintenance Results * (ABNORMAL) COMP METABOLIC PANEL (07/21/2023 12:34 PM EDT)ComponentValueRef RangeTest MethodAnalysis TimePerformed AtPathologist SignatureProtein, Total 6.96.3 - 8.0 g/dL07/21/2023 1:26 PM EDTNORTHCO[facility] Albumin4.93.9 - 4.9 g/dL07/21/2023 1:26 PM [facility] LABCalcium, Total9.78.5 - 10.2 mg/dL07/21/2023 1:26 PM [facility] LABBilirubin, Total0.40.2 - 1.3 mg/dL07/21/2023 1:26 PM [facility]DRO[facility] LABAlkaline Cbofpetsxvu9102 - 123 U/L 07/21/2023 1:26 PM EDTNOST[facility] JPTCCU0690 - 35 U/L 07/21/2023 1:26 PM [facility] VINRDF740 - 38 U/L 07/21/2023 1:26 PM [facility] VVGRjfctrz0479 - 99 mg/dL07/21/2023 1:26 PM [facility] LABComment: The [place] Diabetes Association (ADA) provides guidance for cutoff values for fasting glucose andrandom glucose. The ADA defines fasting as no caloric intake for at least 8 hours. Fasting plasma glucose results between 100 to 125 mg/dL indicate increased risk for diabetes (prediabetes). Fasting plasma glucose results greater than or equal to 126 mg/dL meet the criteria for diagnosis of diabetes. In the absence of unequivocal hyperglycemia, results should be confirmed by repeat testing. In a patient with classic symptoms of hyperglycemia or hyperglycemic crisis, random plasma glucose results greater than or equal to 200 mg/dL meet the criteria for diagnosis of diabetes. Reference: Standards of Medical Care in Diabetes 2016, [place] Diabetes Association. Diabetes Care. 2016.39(Suppl 1). TIA216 - 21 mg/dL07/21/2023 1:26 PM [facility] Creatinine0.830.58 - 0.96 mg/dL07/21/2023 1:26 PM [facility] ZDMFhxcxx497115 - 144 mmol/L1 1:26 PM [facility] LABPotassium4.03.7 - 5.1 mmol/L1 1:26 PM EDTNORTHEN[facility] BNXRmlhjxen88179 - 105 mmol/L1 1:26 PM EDT [facility] TOALP926(H)22 - 30 mmol/L1 1:26 PM EDTRICHWO[facility] LABAnion Gap7(L)9 - 18 mmol/L1 1:26 PM EDTNOSTONEWALL JACK[facility] LABEstimated Glomerular Filtration Rate83>=60 mL/min/1.73m 07/21/2023 1:26 PM EDTNORTHENRY [facility]D [facility] LABComment:Estimated Glomerular Filtration Rate (eGFR) is calculated using the 2020 CKD-EPI creatinine equation. This equation utilizes serum creatinine, sex, and age as parameters. The creatinine assay has traceable calibration to isotope dilution- mass spectrometry. Refer to KDIGO guidelines for clinical interpretation. In patients with unstable renal function, e.g. those with acute kidney injury, the eGFRmay not accurately reflect actual GFR.Specimen (Source)Anatomical Location / LateralityCollection Method / VolumeCollection TimeReceived TimeBloodBLOOD SPECIMEN / UnknownVenipuncture / Yrvajhl9507/21/2023 12:34 PM EDT1 12:34 PM EDT Narrative Authorizing ProviderResult TypeResult StatusRoosevelt Ribeiro MDLABORATORYFinal ResultPerforming OrganizationAddressCity/State/ZIP CodePhone Number [facility] [address] [place] [address] from Last 3 Months or Most Recently Relevant to Health Maintenance Insurance Care Teams Team MemberRelationshipSpecialtyStart DateEnd Date Joon Miramontes DO PCP - General01/15/06 Almas Betts [address] [place] [id number] ObstetricianOb/Gyn07/25/18
[2025-08-14 09:40] LABS: Hematocrit 42.5 % (36.0-48.0); Hemoglobin 13.6 g/dL (12.0-16.0); Immature Granulocytes Abs Auto 0.01 10^3/uL (0.00-0.03); Immature Granulocytes Pct Auto 0.2 % (0.0-0.5); Lymphocytes Absolute Auto 1.1 10^3/uL (1.2-3.8); Mean Corpuscular HGB Conc 32.0 g/dL (29.9-35.2); Mean Corpuscular Hemoglobin 29.8 pg (26.7-34.0); Mean Corpuscular Volume 93.0 fL (81.0-99.0); Platelet Count 282 10^3/uL (150-450); Red Blood Count 4.57 10^6/uL (4.20-5.40); White Blood Count 4.5 10^3/uL (4.0-11.0)
[2025-08-14 11:15] LABS: Alanine Aminotransferase 29 U/L (14-59); Albumin Globulin Ratio 1.2; Albumin Level 4.0 g/dL (3.4-5.0); Alkaline Phosphatase 63 U/L (46-116); Anion Gap 11.3; Aspartate Amino Transferase 22 U/L (15-37); Blood Urea Nitrogen 14.0 mg/dL (7.0-18.0); Calcium 9.1 mg/dL (8.5-10.1); Carbon Dioxide 30.6 mmol/L (21.0-32.0); Chloride 104 mmol/L (98-107); Cholesterol 246 mg/dL (<=200); Estimated GFR (African America >60 (>=60 mL/min/1.73m^2); Estimated GFR (Non-African Ame >60 (>=60 mL/min/1.73m^2); Globulin 3.4 g/dL; Glucose 99 mg/dL (74-106); HDL Cholesterol 87 mg/dL (40-60); Potassium 3.9 mmol/L (3.5-5.1); Sodium 142 mmol/L (136-145); Thyroid Stimulating Hormone 2.476 uIU/mL (0.358-3.740); Total Protein 7.4 g/dL (6.4-8.2); Triglycerides 129 mg/dL (<=150); VLDL CHOLESTEROL 25.8 mg/dL
== END 2025-08-14 08:44 | disposition home or self-care (01) ==
LOC: LAB 08:45
PROVIDERS: PCP Internal Medicine; Visit Provider Internal Medicine
DX: Z00.00 Encounter for general adult medical examination without abnormal findings (principal)
CPT/HCPCS: 36415; 80053; 80061; 84443; 85025

== ENCOUNTER 2025-09-27 15:42 | Outpatient (OUT) | payer BC, SELFPAY ==
--- NOTE | 2025-09-27 | CT_ITS ---
The [address] [address] Patient Name: ROMEO BOSWELL MRN: [id number] date: 1970 Sex: F Assigned Patient Location: CT Current Patient Location: Accession/Order Number: [id number] Exam Date: 09/27/2025 15:48 Report Date: 09/28/2025 10:30 At the request of: SANTANA STEWART DO Procedure: CT sinus wo con CT PARANASAL SINUSES WITHOUT CONTRAST: CLINICAL HISTORY: Chronic Nasal Obstruction, greater on the right J34.89 COMPARISON: None TECHNIQUE: Contiguous axial unenhanced images were obtained through the paranasal sinuses. Coronal reconstructions were also performed. This CT exam was performed using one or more following dose reduction techniques: Automated exposure control, adjustment of the mA and/or kV according to patient size, or use of iterative reconstruction technique. FINDINGS: There is appropriate sinus development. There is opacification of the frontal, left sphenoid and ethmoid air cells bilaterally. There is moderate bilateral maxillary, right greater than left and minimal right sphenoid mucosal thickening. No fluid levels are seen. Soft tissue density extends through the ostiomeatal complexes and effaces the middle turbinates, filling the superior nasal passages, right worse than left. This could be polyposis. Portions of the medial villasenor of the maxillary sinuses and some of the inferior ethmoid air cells are not well seen. There is subtle nasal septal deviation to the right. The mastoid air cells are clear. No orbital asymmetries are noted. CT/CT sinus wo con IMPRESSION: CHRONIC PANSINUSITIS AND SUSPECTED POLYPOSIS, DESCRIBED Impression dictated by: Parvin Ambriz M.D. 09/28/2025 10:30 AM Dictation Location: [place] [address] Electronically authenticated by: [id number] Y Date: 09/28/2025 10:30
== END 2025-09-27 15:43 | disposition home or self-care (01) ==
LOC: CT 15:42
PROVIDERS: PCP Internal Medicine; Visit Provider Internal Medicine
DX: J34.89 Other specified disorders of nose and nasal sinuses (principal); J32.9 Chronic sinusitis, unspecified
CPT/HCPCS: 70486